=== PATIENT | female | born 1945 | race Caucasian/White ===

== ENCOUNTER 2018-07-27 17:54 | Observation (INO) | payer OTHER ==
[2018-07-27] MEDS ORDERED: ALBUTEROL 2.5 MG/3 ML NEB SOL ONE ×2 (19:11→20:39)
[2018-07-27] MEDS ORDERED: IPRATROPIUM BROM 0.5MG/2.5ML ONE ×2 (19:11→20:39)
[2018-07-27 19:18] LABS: Absolute Lymphocytes (CBC) 0.9 K/uL (0.7-4.9); Absolute Monocytes 0.7 K/uL (0.1-1.3); Absolute Neutrophil 5.1 K/uL (1.8-8.0); Basophils % 0.4 % (0-1.3); Eosinophils % 4.7 % (0-4.4); Hematocrit 41.3 % (36.0-45.0); Lymphocytes % 13.2 % (15.3-44.8); MPV 8.8 fL (7.6-11.3); Monocytes % 9.7 % (3.3-12.3); RBC Red Blood Cell Count 4.61 M/uL (3.86-4.86)
[2018-07-27 19:22] LABS: Protime INR 0.96
[2018-07-27 19:38] LABS: ALT/SGPT 44 U/L (12-78); AST/SGOT 47 U/L (15-37); Albumin 3.5 g/dL (3.4-5.0); Alkaline Phosphatase 122 U/L (45-117); BUN Blood Urea Nitrogen 7 mg/dL (7-18); Bicarbonate 28 mmol/L (21-32); Bilirubin Direct < 0.1 mg/dL (0-0.2); Bilirubin Total 0.3 mg/dL (0.2-1.0); Glucose Level 114 mg/dL (74-106); Magnesium 2.1 mg/dL (1.8-2.4); NT PRO-BNP 151 pg/mL (<125); Potassium 3.5 mmol/L (3.5-5.1); Protein, Total 7.4 g/dL (6.4-8.2); Sodium Level 139 mmol/L (136-145); Troponin (Emerg Dept Use Only) < 0.02 ng/mL (0.0-0.045)
--- NOTE | 2018-07-27 20:26 | RAD REPORT ---
EXAM DESCRIPTION: Denise Pa And Lat (2 Views)07/27/2018 7:44 pm CLINICAL HISTORY: Cough COMPARISON: None FINDINGS: Mild interstitial lung opacities probably are chronic. The Lungs appear clear of acute infiltrate. The heart is probably mildly enlarged. Left hemidiaphragm is elevated
[2018-07-27] MEDS ORDERED: METHYLPREDNISOLONE 40 MG INJ ONE ×2 (20:39→20:43)
[2018-07-27] MEDS ORDERED: ACETAMINOPHEN 500 MG TAB ONE ×2 (20:39→20:43)
[2018-07-27] MEDS ORDERED: ONDANSETRON 4 MG/2 ML VIAL ONE ×2 (20:39→20:43)
[2018-07-27] MEDS ORDERED: NA CHLORIDE 0.9% 250 ML ONE ×2 (20:39→20:43)
[2018-07-27] MEDS ORDERED: BENZONATATE 100 MG CAP PO ONE (21:05)
--- NOTE | 2018-07-27 22:46 | ER ---
Nurse's Notes [facility] Name: Emma Cordova Age: 73 yrs Sex: Female : 1945 Arrival Date: 07/27/2018 Time: 17:55 Bed 5 Private MD: Diagnosis: Pneumonia due to other specified bacteria Presentation: 07/27 17:55 Presenting complaint: Patient states: productive cough, fever, chest congestion, and aa5 nasal congestion since Wednesday. Pt reports she is currently taking Azithromycin. Transition of care: patient was not received from another setting of care. Care prior to arrival: None. 17:55 Method Of Arrival: Wheelchair aa5 17:55 Acuity: HERNÁN 3 aa5 17:55 Onset of symptoms was June 2018. Risk Assessment: Do you want to hurt yourself or aa5 someone else? Patient reports no desire to harm self or others. 20:08 Initial Sepsis Screen: Does the patient meet any 2 criteria? HR > 90 bpm. Does the lp1 patient have a suspected source of infection? No. Patient's initial sepsis screen is negative. Historical: - Allergies: 17:58 Benadryl; aa5 17:58 Atarax; aa5 - PMHx: 17:58 Anxiety; Depression; aa5 - PSHx: 17:58 Diaphragm repair sx; aa5 - Immunization history:: Adult Immunizations up to date. - Social history:: Smoking status: Patient/guardian denies using tobacco. - Ebola Screening: : No symptoms or risks identified at this time. Screenin:41 Abuse screen: Denies threats or abuse. Denies injuries from another. Nutritional lp1 screening: No deficits noted. Tuberculosis screening: No symptoms or risk factors identified. Fall Risk None identified. Assessment: 19:15 General: Appears uncomfortable, Behavior is appropriate for age. Pain: Denies pain. lp1 Neuro: Level of Consciousness is awake, alert, obeys commands, Oriented to person, place, time, situation. Cardiovascular: Patient's skin is warm and dry. Respiratory: Reports cough that is labored breathing pain with cough Airway is patent Respiratory effort is even, labored, Respiratory pattern is regular, Breath sounds with wheezes bilaterally. Onset: The symptoms/episode began/occurred gradually, the patient has moderate shortness of breath. GI: Abdomen is non-distended. : No signs and/or symptoms were reported regarding the genitourinary system. EENT: No signs and/or symptoms were reported regarding the EENT system. Derm: Skin is intact, is thin, Skin is dry, Skin is flushed. Musculoskeletal: Circulation, motion, and sensation intact. 19:41 Reassessment: Patient returned from radiology at this time. lp1 20:30 Neuro: Level of Consciousness is awake, alert, obeys commands, Oriented to person, lp1 place, time, situation. Respiratory: Respiratory effort is even. Derm: Skin is intact, Skin is dry, Skin is normal. 21:00 Reassessment: Patient appears in no apparent distress at this time. Complaint of lp1 feeling "shaky" after nebulizer treatment Patient states feeling better. 22:00 Reassessment: Patient appears in no apparent distress at this time. Patient states lp1 feeling better. Neuro: Level of Consciousness is awake, alert, obeys commands, Oriented to person, place, time, situation. Respiratory: Respiratory effort is even, Respiratory pattern is regular, symmetrical, Breath sounds are clear bilaterally. wheezing diminished. 22:30 Reassessment: Provider at bedside to discuss results with patient; Patient aware of lp1 pending admission. 23:30 Reassessment: Patient appears in no apparent distress at this time. No changes from lp1 previously documented assessment. Patient and/or family updated on plan of care and expected duration. Pain level reassessed. Vital Signs: 18:00 BP 150 / 80; Pulse 100; Resp 20 S; Temp 99.9(O); Pulse Ox 94% on R/A; Weight 72.57 kg aa5 (R); 19:00 BP 133 / 64; Pulse 96; Resp 18; Pulse Ox 98% on Nebulizer Mask; lp1 19:45 BP 140 / 74; Pulse 116; Resp 19; Temp 100.3(O); Pulse Ox 96% on R/A; lp1 20:30 BP 136 / 67; Pulse 116; Resp 17; Pulse Ox 93% on R/A; lp1 21:15 BP 141 / 63; Pulse 122; Resp 18; Pulse Ox 95% on R/A; Pain 0/10; lp1 22:30 BP 114 / 66; Pulse 106; Resp 19; Temp 99.7(O); Pulse Ox 95% on R/A; Pain 0/10; lp1 23:30 BP 118 / 65; Pulse 97; Resp 18; Pulse Ox 95% on R/A; Pain 0/10; lp1 ED Course: 17:55 Patient arrived in ED. aa5 17:55 Arm band placed on. aa5 17:58 Patient placed in an exam room, on a stretcher. aa5 18:10 Triage completed. aa5 18:32 Matheus Barfield PA is PHCP. cp 18:32 Mandi Lucia MD is Attending Physician. cp 18:47 Slava Oliveira RN is Primary Nurse. hj 19:10 Initial lab(s) drawn, by me, sent to lab. Flu and/or RSV swab sent to lab. Inserted lt1 saline lock: 22 gauge in right antecubital area, using aseptic technique. 19:15 Patient has correct armband on for positive identification. hall monitor on. Pulse lp1 ox on. NIBP on. 19:18 Matheus Powers MD is Attending Physician. cp 19:18 EKG done, by ED staff, reviewed by Matheus KENDALL. ag4 19:44 XRAY Chest Pa And Lat (2 Views) In Process Unspecified. EDMS 21:[address] via wheelchair. vm2 21:51 CT Chest Wo Con In Process Unspecified. EDMS 22:43 Sina Bertrand MD is Hospitalizing Provider. cp 05/ 00:00 No provider procedures requiring assistance completed. Patient admitted, IV remains in lp1 place. 00:20 Inserted saline lock: 22 gauge in left forearm, using aseptic technique. Inserted per lp1 patient request. Administered Medications: 05 18:50 Drug: Albuterol - atroVENT (3:1) (2.5 mg - 0.5 mg) 3 ml Route: Nebulizer; hj 19:50 Follow up: Response: Marked relief of symptoms lp1 20:30 Drug: Zofran 4 mg Route: IVP; Site: right antecubital; bb 21:30 Follow up: Response: Nausea is decreased lp1 20:41 Drug: Tylenol 1000 mg Route: PO; bb 22:30 Follow up: Response: Temperature is decreased lp1 20:41 Drug: NS 0.9% 250 ml Route: IV; Rate: bolus; Site: right antecubital; bb 20:58 Follow up: IV Status: Completed infusion; IV Intake: 250ml lp1 20:42 Drug: SOLU-Medrol 80 mg Route: IVP; Site: right antecubital; bb 21:45 Follow up: Response: No adverse reaction lp1 20:57 Drug: Tessalon Perle 200 mg Route: PO; lp1 22:00 Follow up: Response: Marked relief of symptoms lp1 20:59 Drug: NS 0.9% 250 ml Route: IV; Rate: bolus; Site: right antecubital; lp1 21:20 Follow up: IV Status: Completed infusion; IV Intake: 250ml lp1 23:47 Drug: LevaQUIN 750 mg Volume: 150 ml; Route: IVPB; Infused Over: 90 mins; Site: right lp1 antecubital; 23:48 Follow up: IV Status: Infusion continued upon admission lp1 23:48 Drug: NS 0.9% 1000 ml Route: IV; Rate: 100 ml/hr; Site: right antecubital; lp1 23:48 Follow up: IV Status: Infusion continued upon admission lp1 Intake: 20:58 IV: 250ml; Total: 250ml. lp1 21:20 IV: 250ml; Total: 500ml. lp1 Outcome: 22:45 Decision to Hospitalize by Provider. orin 07/28 00:04 Admitted to Med/surg accompanied by tech, via wheelchair, room 205, with chart, Report lp1 called to Brett Vee RN Condition: stable Instructed on the need for admit. 00:20 Patient left the ED. lp1 Signatures: Dispatcher [employer] EDMS Aurora Washington RN RN bb Tammie Perla RN RN Marce Correa RN RN lp1 Slava Oliveira RN RN hj Page, Corey, PA PA cp McGuire, [facility] Brian Modi Jane Leo 1 Corrections: (The following items were deleted from the chart) 07/27 18:10 17:55 Presenting complaint: Patient states: productive cough, fever, chest congestion, aa5 and nasal congestion. aa5 18:53 08:50 Albuterol - atroVENT (3:1) (2.5 mg - 0.5 mg) 3 ml Nebulizer hj hj 21:19 21:15 BP 141 / 63; Pulse 122bpm; Resp 18bpm; Pulse Ox 95% RA; lp1 lp1
--- NOTE | 2018-07-27 22:46 | EDPHYS ---
Physician Documentation [facility] Name: Emma Cordova Age: 73 yrs Sex: Female : 1945 Arrival Date: 07/27/2018 Time: 17:55 Bed 5 Private MD: ED Physician Matheus Powers HPI: 07/27 19:00 This 73 yrs old Female presents to ER via Wheelchair with complaints of Cough.cp Historical: - Allergies: 17:58 Benadryl; aa5 17:58 Atarax; aa5 - PMHx: 17:58 Anxiety; Depression; aa5 - PSHx: 17:58 Diaphragm repair sx; aa5 - Immunization history:: Adult Immunizations up to date. - Social history:: Smoking status: Patient/guardian denies using tobacco. - Ebola Screening: : No symptoms or risks identified at this time. ROS: 19:05 Constitutional: Negative for body aches, chills, fever, poor PO intake. cp 19:05 Eyes: Negative for injury, pain, redness, and discharge. cp 19:05 ENT: Positive for sore throat, Negative for drainage from ear(s), ear pain, difficulty swallowing, difficulty handling secretions. 19:05 Cardiovascular: Negative for chest pain, edema, palpitations. 19:05 Respiratory: Positive for cough, "sounds productive", shortness of breath. 19:05 Abdomen/GI: Negative for abdominal pain, vomiting, diarrhea, constipation, anorexia, black/tarry stool, rectal bleeding. 19:05 Back: Negative for pain at rest, pain with movement. 19:05 Skin: Negative for cellulitis, rash. 19:05 Neuro: Negative for altered mental status, headache, syncope, weakness. 19:05 All other systems are negative. Exam: 19:15 Head/Face: Normocephalic, atraumatic. cp 19:15 Constitutional: The patient appears in no acute distress, alert, awake, non-diaphoretic, non-toxic, well developed, well nourished, appears ill 19:15 Eyes: Periorbital structures: appear normal, Conjunctiva: normal, no exudate, no cp injection, Sclera: no appreciated abnormality, Lids and lashes: appear normal, bilaterally. 19:15 ENT: External ear(s): are unremarkable, Ear canal(s): are normal, clear, TM's: bulging, is not appreciated, bilaterally, dullness, bilaterally, erythema, is not appreciated, bilaterally, Nose: is normal, Mouth: Lips: moist, Oral mucosa: moist, Posterior pharynx: Airway: no evidence of obstruction, patent, Tonsils: no enlargement, no exudate, swelling, is not appreciated, erythema, that is mild, exudate, is not appreciated, Voice: is normal. 19:15 Neck: ROM/movement: is normal, is supple, without pain, no range of motions limitations, no meningismus, no nuchal rigidity, Lymph nodes: no appreciated lymphadenopathy. 19:15 Chest/axilla: Inspection: normal, Palpation: is normal, no crepitus, no tenderness. 19:15 Cardiovascular: Rate: normal, Rhythm: regular, Edema: is not appreciated, JVD: is not appreciated. 19:15 Respiratory: the patient does not display signs of respiratory distress, Respirations: labored breathing, that is mild, intercostal retractions, are absent, tachypnea, is not appreciated, Breath sounds: bronchial sounds, that are moderate, are heard diffusely, stridor, is not appreciated, + upper airway congestion. 19:15 Abdomen/GI: Inspection: abdomen appears normal, Palpation: abdomen is soft and non-tender, in all quadrants. 19:15 Back: pain, is absent, ROM is normal. 19:15 Skin: no rash present. 19:15 Neuro: Orientation: to person, place \\T\\ time. Mentation: is normal, Cerebellar function: is grossly normal, Motor: moves all fours, strength is normal, Sensation: is normal. 19:25 ECG was reviewed by the Attending Physician. cp Vital Signs: 18:00 BP 150 / 80; Pulse 100; Resp 20 S; Temp 99.9(O); Pulse Ox 94% on R/A; Weight 72.57 kg aa5 (R); 19:00 BP 133 / 64; Pulse 96; Resp 18; Pulse Ox 98% on Nebulizer Mask; lp1 19:45 BP 140 / 74; Pulse 116; Resp 19; Temp 100.3(O); Pulse Ox 96% on R/A; lp1 20:30 BP 136 / 67; Pulse 116; Resp 17; Pulse Ox 93% on R/A; lp1 21:15 BP 141 / 63; Pulse 122; Resp 18; Pulse Ox 95% on R/A; Pain 0/10; lp1 22:30 BP 114 / 66; Pulse 106; Resp 19; Temp 99.7(O); Pulse Ox 95% on R/A; Pain 0/10; lp1 23:30 BP 118 / 65; Pulse 97; Resp 18; Pulse Ox 95% on R/A; Pain 0/10; lp1 MDM: 18:32 Patient medically screened. cp 19:00 Differential Diagnosis: Bronchitis Influenza Viral Syndrome Pneumonia Other sepsis. cp 22:50 Data reviewed: vital signs, nurses notes, lab test result(s), EKG, radiologic studies, cp CT scan, plain films. 22:50 Test interpretation: by ED physician or midlevel provider: ECG. Counseling: I had a cp detailed discussion with the patient and/or guardian regarding: the historical points, exam findings, and any diagnostic results supporting the discharge/admit diagnosis, lab results, radiology results, the need for further work-up and treatment in the hospital. Response to treatment: the patient's symptoms have mildly improved after treatment. 07/27 18:50 Order name: Basic Metabolic Panel; Complete Time: 19:51 cp 07/27 19:51 Interpretation: Normal except: GLUC 114; GFR 61. cp 07/27 18:50 Order name: CBC with Diff; Complete Time: 19:51 cp 07/27 19:52 Interpretation: Normal except: LYM% 13.2; EOSINOPHIL % 4.7. cp / 18:50 Order name: LFT's; Complete Time: 19:51 cp / 20:24 Interpretation: Normal except: AST 47; ALK 122; GLOB 3.9; A/G 0.9. cp / 18:50 Order name: Magnesium; Complete Time: 19:51 cp 07/27 18:50 Order name: NT PRO-BNP; Complete Time: 19:51 cp / 20:31 Interpretation: Abnormal: NT PRO-BNP 151. cp / 18:50 Order name: XRAY Chest Pa And Lat (2 Views); Complete Time: 20:30 cp / 18:50 Order name: PT-INR; Complete Time: 19:51 cp 07/27 18:50 Order name: Troponin (emerg Dept Use Only); Complete Time: 19:51 cp 07/27 18:50 Order name: Lactate; Complete Time: 19:51 cp 07/27 18:51 Order name: Influenza Screen (A ; Complete Time: 19:51 EDMS 07/27 21:19 Order name: CT Chest Wo Con cp 07/27 22:57 Order name: Blood Culture Adult (2) lp1 07/27 18:50 Order name: EKG; Complete Time: 18:51 cp 07/27 18:50 Order name: Cardiac monitoring; Complete Time: 18:53 cp 07/27 18:50 Order name: EKG - Nurse/Tech; Complete Time: 19:20 cp 07/27 18:50 Order name: IV Saline Lock; Complete Time: 19:11 cp 07/27 18:50 Order name: Labs collected and sent; Complete Time: 19:11 cp 07/27 18:50 Order name: O2 Per Protocol; Complete Time: 18:52 cp 07/27 18:50 Order name: O2 Sat Monitoring; Complete Time: 18:52 cp EC:25 Rate is 101 beats/min. Rhythm is regular. ND interval is normal. QRS interval is cp normal. QT interval is normal. Interpreted by me. Reviewed by me. Administered Medications: 18:50 Drug: Albuterol - atroVENT (3:1) (2.5 mg - 0.5 mg) 3 ml Route: Nebulizer; hj 19:50 Follow up: Response: Marked relief of symptoms lp1 20:30 Drug: Zofran 4 mg Route: IVP; Site: right antecubital; bb 21:30 Follow up: Response: Nausea is decreased lp1 20:41 Drug: Tylenol 1000 mg Route: PO; bb 22:30 Follow up: Response: Temperature is decreased lp1 20:41 Drug: NS 0.9% 250 ml Route: IV; Rate: bolus; Site: right antecubital; bb 20:58 Follow up: IV Status: Completed infusion; IV Intake: 250ml lp1 20:42 Drug: SOLU-Medrol 80 mg Route: IVP; Site: right antecubital; bb 21:45 Follow up: Response: No adverse reaction lp1 20:57 Drug: Tessalon Perle 200 mg Route: PO; lp1 22:00 Follow up: Response: Marked relief of symptoms lp1 20:59 Drug: NS 0.9% 250 ml Route: IV; Rate: bolus; Site: right antecubital; lp1 21:20 Follow up: IV Status: Completed infusion; IV Intake: 250ml lp1 23:47 Drug: LevaQUIN 750 mg Volume: 150 ml; Route: IVPB; Infused Over: 90 mins; Site: right lp1 antecubital; 23:48 Follow up: IV Status: Infusion continued upon admission lp1 23:48 Drug: NS 0.9% 1000 ml Route: IV; Rate: 100 ml/hr; Site: right antecubital; lp1 23:48 Follow up: IV Status: Infusion continued upon admission lp1 Disposition: 07/28 07:51 Co-signature as Attending Physician, Matheus Powers MD I agree with the assessment and umm plan of care. Disposition: 07/27/18 22:45 Hospitalization ordered by Sina Bertrand for Inpatient Admission. Preliminary diagnosis is Pneumonia due to other specified bacteria. - Bed requested for Telemetry/MedSurg (Inpatient). - Status is Inpatient Admission. lp1 - Condition is Stable. - Problem is new. - Symptoms have improved. UTI on Admission? No Signatures: Dispatcher [employer] [facility] Matheus Powers MD MD cha Ballard, Brenda, RN RN bb Tammie Perla, RN RN aa5 Marce Bergman RN RN 1 Slava Oliveira, RN RN hj Matheus Barfield PA PA cp Garcia, Cindy, JOSHUA RN cg Corrections: (The following items were deleted from the chart) 07/27 18:54 18:51 Influenza Screen (A \\T\\ B)+[id number].LAB.BRZ ordered. [facility] EDUT 23:41 22:45 Hospitalization Ordered by Sina Bertrand MD for Inpatient Admission. Preliminary cg diagnosis is Pneumonia due to other specified bacteria. Bed requested for Telemetry/MedSurg (Inpatient). Status is Inpatient Admission. Condition is Stable. Problem is new. Symptoms have improved. UTI on Admission? No. cp 07/28 00:20 07/27 23:41 07/27/2018 22:45 Hospitalization Ordered by Sina Bertrand MD for Inpatient lp1 Admission. Preliminary diagnosis is Pneumonia due to other specified bacteria. Bed requested for Telemetry/MedSurg (Inpatient). Status is Inpatient Admission. Condition is Stable. Problem is new. Symptoms have improved. UTI on Admission? No. cg
[2018-07-27] MEDS ORDERED: NA CHLORIDE 0.9% 1,000 ML ONE (23:03)
[2018-07-27] MEDS ORDERED: Levofloxacin 750mg IV 750 MG/150 ML BAG IV ONE (23:04)
[2018-07-28] MEDS ORDERED: Levofloxacin 750mg IV 750 MG/150 ML BAG IV SCH (00:22)
[2018-07-28] MEDS ORDERED: ACETAMINOPHEN 500 MG TAB PO PRN (00:22)
[2018-07-28] MEDS ORDERED: ALBUTEROL 2.5 MG/3 ML NEB SOL NEB PRN (00:22)
[2018-07-28] MEDS ORDERED: ONDANSETRON 4 MG/2 ML VIAL IV PRN (00:22)
[2018-07-28] MEDS ORDERED: IPRATROPIUM BROM 0.5MG/2.5ML NEB PRN (00:22)
[2018-07-28] MEDS: NA CHLORIDE 0.9% 1,000 ML IV SCH ×2 (00:54→09:34)
[2018-07-28 01:39] VITALS: BMI 29.5
[2018-07-28] MEDS ORDERED: PHENOL 1.4% ORAL SPRAY 180ML MM PRN (04:34)
[2018-07-28 05:27] LABS: Absolute Lymphocytes (CBC) 0.4 K/uL (0.7-4.9); Absolute Monocytes 0.1 K/uL (0.1-1.3); Absolute Neutrophil 5.4 K/uL (1.8-8.0); Basophils % 0.1 % (0-1.3); Eosinophils % 0.1 % (0-4.4); Lymphocytes % 7.4 % (15.3-44.8); MPV 8.6 fL (7.6-11.3); Monocytes % 1.3 % (3.3-12.3); RBC Red Blood Cell Count 4.22 M/uL (3.86-4.86)
--- NOTE | 2018-07-28 05:33 | P.HP ---
Certification for Inpatient Patient admitted to: Inpatient With expected LOS: >2 Midnights Practitioner: I am a practitioner with admitting privileges, knowledge of patient current condition, hospital course, and medical plan of care. Services: Services provided to patient in accordance with Admission requirements found in Title 42 Section 412.3 of the Code of Federal Regulations Patient History Date of Service: 07/27/18 Reason for admission: pneumonia History of Present Illness: Ms Cordova is a 73 years old woman with history of depression/anxiety, left diaphragm surgery repair, recurrent bronchitis episodes, who start about 5 days go with productive cough, associated with SOB. She has had fever at home. The patient went to see her PCP, and was prescribed Z-pack. Despite to start antibiotics, her symptoms got worse. In ED she was febrile, 100.3F, O2 sat 94% on RA. CT chest shows right middle lobe ground glass opacification consistent with acute pneumonitis. Lab work shows normal WBC count, lactate normal. At my encounter the patient was in non-distress. Allergies diphenhydramine [From Benadryl] Allergy (Intermediate, Verified 07/28/18 02:13) Hives hydroxyzine [From Atarax] Allergy (Intermediate, Verified 07/28/18 02:13) Hives Home Medications: Atorvastatin Calcium 10 mg PO DAILY 07/28/18 Cetirizine HCl [Zyrtec] 10 mg PO DAILY 07/28/18 Codeine/APAP [Tylenol W/Codeine #3 tab] 1 tab PO Q6HP PRN 07/28/18 Fluoxetine HCl [Prozac] 10 mg PO DAILY 07/28/18 - Past Medical/Surgical History Has patient received pneumonia vaccine in the past: Yes Diabetic: No -: Shingles x2 -: Depression -: Anxiety -: Diaphragm sx - 2018 -: x2 - Family History Family History: Reviewed- Non-Contributory - Social History Smoking Status: Former smoker Alcohol use: No CD- Drugs: No Caffeine use: Yes Place of Residence: Home Review of Systems 10-point ROS is otherwise unremarkable Physical Examination - Vital Signs Temperature: 97.0 F Blood Pressure: 132/60 Pulse: 91 Respirations: 18 Pulse Ox (%): 93 - Physical Exam General: Alert, In no apparent distress HEENT: Atraumatic, PERRLA, Mucous membr. moist/pink, EOMI, Sclerae nonicteric Neck: Supple, 2+ carotid pulse no bruit, No LAD, Without JVD or thyroid abnormality Respiratory: Diminished, Crackles/rales (right middle field) Cardiovascular: Regular rate/rhythm, Normal S1 S2 Gastrointestinal: Normal bowel sounds, No tenderness Musculoskeletal: No tenderness Integumentary: No rashes Neurological: Normal gait, Normal speech, Normal strength at 5/5 x4 extr, Normal tone, Normal affect Lymphatics: No axilla or inguinal lymphadenopathy - Studies Laboratory Data (last 24 hrs) 07/27/18 19:06: PT 11.3, INR 0.96 07/27/18 19:06: WBC 7.0, Hgb 13.7, Hct 41.3, Plt Count 180 07/27/18 19:06: Sodium 139, Potassium 3.5, BUN 7, Creatinine 0.91, Glucose 114 H , Magnesium 2.1, Total Bilirubin 0.3, AST 47 H, ALT 44, Alkaline Phosphatase 122 H Microbiology Data (last 24 hrs): 07/27/18 19:06 Nasopharnyx Influenza Type A Antigen Screen - Final 07/27/18 19:06 Nasopharnyx Influenza Type B Antigen Screen - Final Assessment and Plan - Problems (Diagnosis) (1) Pneumonitis Current Visit: Yes Status: Acute (2) HTN (hypertension) Current Visit: Yes Status: Acute Qualifiers: Hypertension type: essential hypertension Qualified Code(s): I10 - Essential (primary) hypertension - Plan Will admit the patient for acute pneumonitis, who failed outpatient therapy, start IV Levaquin, IV steroids and breathing treatments. Consult detention sergeant. - Advance Directives Does patient have a Living Will: No Does patient have a Durable POA for Healthcare: No - Code Status/Comfort Care Code Status Assessed: Yes Code Status: Full Code
[2018-07-28 05:44] LABS: Potassium 3.6 mmol/L (3.5-5.1)
[2018-07-28 06:45] LABS: Blood Morphology Comment NOT SEEN (NOT SEEN); Platelet Estimate ADEQ; Urine White Blood Cell Casts OK
[2018-07-28] MEDS ORDERED: CODEINE 30MG/APAP 300MG TAB PO PRN (06:45)
[2018-07-28] MEDS ORDERED: ARFORMOTEROL TARTRATE 15 MCG/2 ML VIAL.NEB NEB SCH (08:00)
[2018-07-28] MEDS ORDERED: ATORVASTATIN 10 MG TAB PO SCH (09:00)
[2018-07-28] MEDS ORDERED: FLUOXETINE 10 MG CAP PO SCH (09:00)
[2018-07-28] MEDS ORDERED: POTASSIUM 25 MEQ EFFERV TAB PO ONE (09:00)
[2018-07-28] MEDS ORDERED: CETIRIZINE HCL 5 MG TABLET PO SCH (09:00)
[2018-07-28] MEDS ORDERED: ENOXAPARIN 40 MG/0.4 ML SQ SCH (09:00)
[2018-07-28] MEDS ORDERED: METHYLPREDNISOLONE 40 MG INJ IV SCH (09:00)
[2018-07-28] MEDS ORDERED: ALPRAZOLAM 0.25 MG TABLET PO PRN (09:22)
[2018-07-28 09:24] VITALS: O2SAT 93
--- NOTE | 2018-07-28 10:01 | RAD REPORT ---
EXAM DESCRIPTION: CT Chest Without Intravenous Contrast CLINICAL HISTORY: 73 years old and is Female; cough, fever TECHNIQUE: Axial computed tomography images of the chest without intravenous contrast. Sagittal an d coronal reformatted images were created and reviewed. This CT exam was performed using one or mor e of the following dose reduction techniques: automated exposure control, adjustment of the mA and/ or kV according to patient size, and/or use of iterative reconstruction technique. COMPARISON: No relevant prior studies available. FINDINGS: Limitations: None. Lungs: Subpleural interstitial opacity identified in the right middle lobe and small foci of reji undglass opacity noted in the right upper lobe. There is linear scarring or atelectasis in the lower lobes. Pleural space: Unremarkable. No pneumothorax. No significant effusion. Heart: Unremarkable. No cardiomegaly. No significant pericardial effusion. Bones/joints: There is kyphosis. Degenerative changes present in the spine which is osteopenic. No acute fracture. No dislocation. Soft tissues: Unremarkable. Vasculature: Unremarkable. No thoracic aortic aneurysm. Lymph nodes: There is a borderline enlarged precarinal lymph node measuring 1 cm diameter. Liver: Fatty liver. Kidneys and ureters: Fluid density structure medial to the left kidney may be an unusual exophyt ic cyst or extrarenal pelvis. Upper abdomen: There is elevation of the left diaphragm. There are multiple calcifications along the undersurface of the left diaphragm. IMPRESSION: 1. There is mild nonspecific groundglass opacity within the right middle and upper lob es possibly representing pneumonitis. 2. Elevated left hemidiaphragm. Electronically signed by: Tomasa Valentine MD 07/27/2018 10:06 PM CDT Due to temporary technical issues with the PACS/Fluency reporting system, reports are being signed by the in house radiologist as a courtesy to ensure prompt reporting. The interpreting radiologist is f ully responsible for the content of the report.
[2018-07-28 12:21] VITALS: TEMP 97.3
--- NOTE | 2018-07-28 12:47 | P.CNS ---
Date of Consult: 07/28/18 Reason for Consult: Shortness of breath Chief Complaint: Shortness of breath History of Present Illness: Patient is 73 years of age admitted with acute onset of shortness of breath apparently she had diaphragmatic plication surgery on the left-sided 5 months ago patient had a slight fever complaining of chest congestion diagnosed with bronchitis was treated with some antibiotics coughing up some sputum doing better no prior history of obstructive airways disease Allergies diphenhydramine [From Benadryl] Allergy (Intermediate, Verified 07/28/18 02:13) Hives hydroxyzine [From Atarax] Allergy (Intermediate, Verified 07/28/18 02:13) Hives Home Medications: Atorvastatin Calcium 10 mg PO DAILY 07/28/18 Cetirizine HCl [Zyrtec] 10 mg PO DAILY 07/28/18 Codeine/APAP [Tylenol W/Codeine #3 tab] 1 tab PO Q6HP PRN 07/28/18 Fluoxetine HCl [Prozac] 10 mg PO DAILY 07/28/18 - Past Medical/Surgical History Diabetic: No -: Shingles x2 -: Depression -: Anxiety -: Diaphragm sx - 2018 -: x2 - Social History Alcohol use: No CD- Drugs: No Caffeine use: Yes Place of Residence: Home Review of Systems General: Weakness Respiratory: Cough, Shortness of Breath Physical Examination Temp Pulse Resp BP Pulse Ox 97.3 F 82 16 133/69 96 07/28/18 12:00 07/28/18 12:00 07/28/18 12:00 07/28/18 12:00 07/28/18 12:00 General: Alert, Oriented x3 HEENT: Atraumatic Neck: Supple Respiratory: Expiratory wheezes Cardiovascular: No edema, Regular rate/rhythm Gastrointestinal: Normal bowel sounds, Soft and benign Laboratory Data (last 24 hrs) 07/27/18 19:06: PT 11.3, INR 0.96 07/27/18 19:06: WBC 7.0, Hgb 13.7, Hct 41.3, Plt Count 180 07/27/18 19:06: Sodium 139, Potassium 3.5, BUN 7, Creatinine 0.91, Glucose 114 H , Magnesium 2.1, Total Bilirubin 0.3, AST 47 H, ALT 44, Alkaline Phosphatase 122 H - Problems (1) Shortness of breath Current Visit: Yes Status: Acute Plan: Patient is 73 years of age admitted with shortness of breath and cough chest x- ray CT scan both negative she has elevated left hemidiaphragm recently had after medic surgery performed at [facility] 5 months ago no evidence of sepsis patient is wheezing I recommend discharge on prednisone 10 mg twice a day for 10 days bronchodilator either Advair or Symbicort to follow up with me in a couple of weeks patient does not qualify for home O2 or antibiotic room- air saturation is satisfactory vital signs stable
--- NOTE | 2018-07-28 13:03 | P.DS ---
Admission Date: 07/27/18 Discharge Date: 07/28/18 Primary Care Provider: Dr. Godfrey(PCP/Endocrinology) Disposition: ROUTINE DISCHARGE Discharge Condition: GOOD Reason for Admission: Shortness of breath Consultations: Pulmonary-Dr. Alvarenga Procedures: CT scan: IMPRESSION: 1. There is mild nonspecific groundglass opacity within the right middle and upper lobes possibly representing pneumonitis. 2. Elevated left hemidiaphragm. Medical Problem list: Shortness of breast secondary to COPD exacerbation with pneumonitis with noted elevated left hemidiaphragm with prior surgery Hyperlipidemia Chronic allergic rhinitis Depression with anxiety Brief History of Present Illness: 73-year-old female presented to emergency room with shortness of breath. Patient was recently treated with antibiotic therapy. No improvement noted. She came to the ER for further evaluation. At with prior history of left elevated hemidiaphragm with prior surgery. Patient found to have pneumonitis. Patient was admitted for treatment. Hospital Course: Patient presented with shortness of breath secondary to COPD exacerbation with pneumonitis. Patient with noted elevated left hemidiaphragm with prior surgery. Patient had been treated with antibiotic therapy as an outpatient. Patient seen and evaluated by pulmonology. Pulmonology suspects COPD related. CT scan showed pneumonitis with left elevated hemidiaphragm. Patient has responded well to medication. Pro calcitonin negative. White count within normal range. No evidence of bacterial infection. Patient uses oxygen at home. Patient without any significant shortness of breath at this time. At discharge patient will continue with prednisone 20 mg 1 pill twice daily for 5 days then 1 pill once daily for 5 days. Patient will be started on Symbicort 2 puffs twice daily and Pro air 2 puffs 3 times a day as needed for shortness of breath. Patient may continue with home oxygen to maintain sats above 90%. Recommendation is for the patient to follow up with pulmonology in 1 week to follow up this hospitalization and continue her care. Patient with hyperlipidemia. Patient will continue with her medication-Lipitor 10 mg daily. Patient with depression with anxiety. Patient continue with Prozac daily. Patient with chronic allergic rhinitis. Patient may continue with Zyrtec 10 mg daily. Vital Signs/Physical Exam: Temp Pulse Resp BP Pulse Ox 97.3 F 82 16 133/69 96 07/28/18 12:00 07/28/18 12:00 07/28/18 12:00 07/28/18 12:00 07/28/18 12:00 General: Alert, In no apparent distress, Oriented x3, Cooperative HEENT: Atraumatic Neck: Supple Respiratory: Clear to auscultation bilaterally, Normal air movement Cardiovascular: Normal pulses, Regular rate/rhythm Gastrointestinal: Normal bowel sounds, Soft and benign, Non-distended, No tenderness, No masses, No rebound, No guarding Musculoskeletal: No erythema, No tenderness, No warmth Integumentary: No tenderness/swelling, No erythema, No warmth, No cyanosis Neurological: Normal speech, Normal strength at 5/5 x4 extr, Normal tone, Normal affect Laboratory Data at Discharge: WBC 6.0 K/uL (4.3-10.9) D 07/28/18 05:05 Hgb 12.5 g/dL (12.0-15.0) 07/28/18 05:05 Hct 38.0 % (36.0-45.0) 07/28/18 05:05 Plt Count 178 K/uL (152-406) 07/28/18 05:05 PT 11.3 SECONDS (9.5-12.5) 07/27/18 19:06 INR 0.96 07/27/18 19:06 Sodium 139 mmol/L (136-145) 07/28/18 05:05 Potassium 3.6 mmol/L (3.5-5.1) 07/28/18 05:05 BUN 6 mg/dL (7-18) L 07/28/18 05:05 Creatinine 1.05 mg/dL (0.55-1.3) 07/28/18 05:05 Glucose 197 mg/dL (74-106) H 07/28/18 05:05 Magnesium 2.1 mg/dL (1.8-2.4) 07/27/18 19:06 Total Bilirubin 0.3 mg/dL (0.2-1.0) 07/27/18 19:06 AST 47 U/L (15-37) H 07/27/18 19:06 ALT 44 U/L (12-78) 07/27/18 19:06 Alkaline Phosphatase 122 U/L (45-117) H 07/27/18 19:06 Home Medications: Albuterol Sulfate [Proair Hfa] 2 puff IH TID PRN #1 hfa.[email or web address] 07/28/18 Atorvastatin Calcium 10 mg PO DAILY 07/28/18 Budesonide/Formoterol Fumarate [Symbicort 160-4.5 Mcg Inhaler] 2 puff IH BID #1 hfa.[email or web address] 07/28/18 Cetirizine HCl [Zyrtec] 10 mg PO DAILY 07/28/18 Codeine/APAP [Tylenol #3*] 1 tab PO Q6HP PRN 07/28/18 Fluoxetine HCl [Prozac*] 10 mg PO DAILY 07/28/18 predniSONE [Deltasone] 20 mg PO SEECOM #15 tab 07/28/18 New Medications: Albuterol Sulfate [Proair Hfa] 2 puff IH TID PRN #1 hfa.[email or web address] PRN Reason: Shortness Of Breath Budesonide/Formoterol Fumarate [Symbicort 160-4.5 Mcg Inhaler] 2 puff IH BID #1 hfa.aer.ad predniSONE [Deltasone] 20 mg PO SEECOM #15 tab Patient Discharge Instructions: 1. Patient will follow up with a PCP in 1 week to follow up this hospitalization. 2. Patient presented with shortness of breath secondary to COPD exacerbation with pneumonitis. Patient with noted elevated left hemidiaphragm with prior surgery. Patient had been treated with antibiotic therapy as an outpatient. Patient seen and evaluated by pulmonology. Pulmonology suspects COPD related. CT scan showed pneumonitis with left elevated hemidiaphragm. Patient has responded well to medication. Pro calcitonin negative. White count within normal range. No evidence of bacterial infection. Patient uses oxygen at home. Patient without any significant shortness of breath at this time. At discharge patient will continue with prednisone 20 mg 1 pill twice daily for 5 days then 1 pill once daily for 5 days. Patient will be started on Symbicort 2 puffs twice daily and Pro air 2 puffs 3 times a day as needed for shortness of breath. Patient may continue with home oxygen to maintain sats above 90%. Recommendation is for the patient to follow up with pulmonology in 1 week to follow up this hospitalization and continue her care. 3. Patient with hyperlipidemia. Patient will continue with her medication-Lipitor 10 mg daily. 4. Patient with depression with anxiety. Patient continue with Prozac daily. 5. Patient with chronic allergic rhinitis. Patient may continue with Zyrtec 10 mg daily. Diet: AHA Activity: Ad kristine Time spent managing pt's care (in minutes): 55
[2018-07-28 16:11] VITALS: BP 139/70
--- NOTE | 2018-07-28 17:10 | EKG ---
Test Date: 2018-07-27 Test Time: 19:16:03 [employer]: [employer] MEASUREMENT RESULTS: Intervals: Rate: 101 OH: 150 QRSD: 92 QT: 368 QTc: 477 [place]: P: 43 OH: 150 QRS: 50 T: 64 INTERPRETIVE STATEMENTS: Sinus tachycardia with occasional premature ventricular complexes Otherwise normal ECG No previous ECG available for comparison Electronically Signed On 07-28-18 17:10:12 CDT by Waqas Munoz
[2018-07-28] MEDS ORDERED: predniSONE 20 MG TAB PO SCH (21:00)
[2018-07-30] MEDS ORDERED: Levofloxacin 750mg IV 750 MG/150 ML BAG IV SCH
== END 2018-07-28 17:10 | disposition home or self-care (01) ==
LOC: ER 17:54 → INTOOBSV 23:29 → ERHOLD 23:29 → 2ND 07-28 00:05
PROVIDERS: ADMIT Internal Medicine; ATTEND Internal Medicine
DX: J44.1 Chronic obstructive pulmonary disease with (acute) exacerbation (principal); J18.9 Pneumonia, unspecified organism; E78.5 Hyperlipidemia, unspecified; J30.9 Allergic rhinitis, unspecified; F41.8 Other specified anxiety disorders
CPT/HCPCS: 96365; 93005; 87040 ×2; 85025 ×2; 80048 ×2; 36415; 83735; 85610; 80076; 83605; 84484; 84145; 83880; 87804 ×2; 71250; 71046; 94640 ×2; 94760 ×2; 96375; 99285; J1650; J7605; J7030 ×2; J2405 ×2; J2920 ×3; G0378 ×2

== ENCOUNTER 2018-08-08 09:25 | Emergency (ER) | payer OTHER ==
--- OUTSIDE RECORDS SUMMARY | 2018-08-08 09:39 | XMS REPORT | Clinical Summary ---
:1945 Author Organization [facility] Address [address] [place] [address] Care Team Providers Name Role Phone Lucero Farrar Primary Care Provider Kevin Rascon Unavailable Allergies Active Allergy Reactions Severity Noted Date Comments Hydroxyzine Hcl 08/07/2015 Insomnia Diphenhydramine Other (See Comments) 08/19/2015 insomnia Potato Nausea And Vomiting 11/22/2017 Sweet potatoes only Pseudoephedrine Hcl Other (See Comments) 08/19/2015 Insomnia Medications Medication Sig Dispensed Refills Start Date End Date Status ALPRAZolam (XANAX) Take 0.5 mg 0 Active 0.5 MG tablet by mouth every night as needed for Anxiety. cetirizine (ZYRTEC) Take 10 mg by 0 Active 10 MG tablet mouth 2 (two) times daily . FLUoxetine (PROZAC) Take 40 mg by 0 Active 40 MG capsule mouth daily. atorvastatin Take 20 mg by 0 Active (LIPITOR) 20 MG mouth nightly tablet . cycloSPORINE 1 drop as 0 Active (RESTASIS) 0.05 % needed. ophthalmic emulsion antipyrine-benzocai Place in 0 Active ne 5.5-1.4 % Drop ear(s) as needed. acetaminophen-codei Take 1 tablet 0 Active ne (TYLENOL #3) by mouth 300-30 mg per every 4 tablet (four) hours as needed for Pain. bromfenac 0.07 % Apply to 0 11/22/2017 Discontinued Drop eye(s). difluprednate 0.05 Apply to 0 11/22/2017 Discontinued % Drop eye(s). polymyxin B Place 1 drop 0 11/22/2017 Discontinued sulf-trimethoprim into the left 10,000 unit- 1 eye every 4 mg/mL Drop (four) hours. difluprednate Apply 1 drop 1 Bottle 0 08/08/2015 11/22/2017 Discontinued (DUREZOL) 0.05 % to eye(s) 3 Drop (three) times daily. polymyxin B Place 1 drop 1 Bottle 0 08/08/2015 11/22/2017 Discontinued sulf-trimethoprim into the left 10,000 unit- 1 eye 3 (three) mg/mL Drop times daily. bromfenac Apply 1 drop 5 mL 2 08/08/2015 11/22/2017 Discontinued (PROLENSA) 0.07 % to eye(s) Drop daily. gabapentin Take 1 30 capsule 0 12/31/2017 01/10/2018 (NEURONTIN) 100 MG capsule (100 capsule mg total) by mouth 3 (three) times daily for 10 days. 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 Encounters Date Type Specialty Care Team Description 03/16/2018 Hospital Computed Tomography Josefa Florence Abnormal PFTs; Encounter MD Vito Abnormal screening CT of chest; , [facility] Cough Ct Room 03/14/2018 Outside Orders Central Scheduling Josefa Florence Abnormal PFTs ( Primary Dx); MD Vito Abnormal screening CT of chest; Cough 01/18/2018 Orders Only Lab Manoje, Fely Mehnaz 01/18/2018 Hospital Radiology Manoje, Fely Pleural effusion, Encounter Mehnaz left 01/14/2018 Orders Only Intensive Care Manoje, Fely Pleural effusion, Mehnaz left (Primary Dx) 01/14/2018 Orders Only Intensive Care German Card Pleural effusion, MD Jesus left (Primary Dx) 12/27/2017 Surgery German Card ROBOTIC MD Jesus LAPAROSCOPY,HEMIDI APHRAGM PLICATION 12/27/2017 Anesthesia Event Fidel Tipton MD 12/27/2017 - Hospital Cardiology German Card 12/31/2017 Encounter MD Jesus 12/22/2017 Hospital KyawGerman pa Encounter MD Jesus 12/22/2017 Hospital Pre-Admission Testing German Card MD 12/22/2017 Orders Only General Internal Medicine 12/22/2017 Outside Orders German Card MD 11/23/2017 Anesthesia Event Gastroenterology Musa Haque MD 11/23/2017 Surgery Gastroenterology Josefa Florence BRONCHOSCOPY,[facility] MD Vito HIAL ALVEOLAR LAVAGE 11/23/2017 Hospital Gastroenterology Josefa Florence Encounter MD Vito 11/22/2017 Hospital Pre-Admission Testing Josefa Florence MD Resource, [employer] Preadmit Phone after 08/07/2017 Social History Tobacco Use Types Packs/Day Years Used Date Former Smoker Quit: 03/29/1979 Smokeless Tobacco: Never Used Tobacco Cessation: Counseling Given: No Comments: quit 1979 Alcohol Use Drinks/Week oz/Week Comments No quit 18 yrs ago/hx alcohol abuse Sex Assigned at Date Recorded Not on file Job Start Date Occupation Industry Not on file Not on file Not on file Travel History Travel Start Travel End No recent travel history available. Last Filed Vital Signs Vital Sign Reading Time Taken Blood Pressure 115/58 01/18/2018 12:14 PM CDT Pulse 57 01/18/2018 12:14 PM CDT Temperature 36.8 C (98.2 F) 01/18/2018 11:05 AM CDT Respiratory Rate 17 01/18/2018 12:14 PM CDT Oxygen Saturation 95% 01/18/2018 12:14 PM CDT Inhaled Oxygen Concentration - - Weight 71.7 kg (158 lb) 12/30/2017 7:27 AM CDT Height 160 cm (5' 3") 12/27/2017 6:05 AM CDT Body Mass Index 27.99 12/30/2017 7:27 AM CDT Plan of Treatment Not on file Implants Implanted Type Area [employer] Manager Device Shelf Model / Identifier Expiration Serial / Lot Date Spng Surgcel 2x14in Strl - [id number] Cement/Filler/Ad J &J:ETHICON [id number] / Implanted: Qty: 1 on 12/27/2017 by German Card MD hesive / [id number] Iol Tecnis [id number] 14.0 Shane [id number] - [id number] Ophthalmology Left: [employer] 06/07/2019 [id number] / Implanted: Qty: 1 on 08/08/2015 by Marisa Silvestre MD Eye [id number] / Iol Tecnis [id number] 14.5 Shane [id number] - [id number] Ophthalmology Right: [employer] 03/19/2019 [id number] / Implanted: Qty: 1 on 08/20/2015 by Marisa Silvestre MD Eye [id number] / Procedures Procedure Name Priority Date/Time Associated Diagnosis Comments RHYTHM STRIP - SCAN 06/27/2018 5:[address] CHEST WITHOUT IV Routine 03/16/2018 2:29 Abnormal PFTs Results for this CONTRAST PM CROOK OPERATOR Abnormal screening CT procedure are in of chest the results Cough section. XR CHEST 1 VIEW STAT 01/18/2018 11:55 Results for this PORTABLE/BEDSIDE AM CDT procedure are in the results section. US THORACENTESIS STAT 01/18/2018 11:55 Pleural effusion, Results for this AM CDT left procedure are in the results section. PLATELET COUNT STAT 01/18/2018 9:29 Results for this AM CDT procedure are in the results section. PT/APTT STAT 01/18/2018 9:29 Results for this AM CDT procedure are in the results section. RHYTHM STRIP - SCAN 01/03/2018 3:00 PM CDT XR CHEST 1 VIEW BEN 12/30/2017 3:28 Results for this PORTABLE/BEDSIDE PM CDT procedure are in the results section. XR CHEST 1 VIEW Routine 12/30/2017 6:26 Results for this PORTABLE/BEDSIDE AM CDT procedure are in the results section. CBC W/PLT COUNT & Routine 12/30/2017 4:05 Results for this AUTO DIFFERENTIAL AM CDT procedure are in the results section. BASIC METABOLIC PANEL Routine 12/30/2017 4:05 Results for this (7) AM CDT procedure are in the results section. MAGNESIUM Routine 12/30/2017 4:05 Results for this AM CDT procedure are in the results section. CBC W/PLT COUNT & Routine 12/30/2017 4:05 Results for this AUTO DIFFERENTIAL AM CDT procedure are in the results section. XR CHEST 1 VIEW Routine 12/29/2017 6:14 Results for this PORTABLE/BEDSIDE AM CDT procedure are in the results section. CBC W/PLT COUNT & Routine 12/29/2017 5:24 Results for this AUTO DIFFERENTIAL AM CDT procedure are in the results section. BASIC METABOLIC PANEL Routine 12/29/2017 5:24 Results for this (7) AM CDT procedure are in the results section. MAGNESIUM Routine 12/29/2017 5:24 Results for this AM CDT procedure are in the results section. CBC W/PLT COUNT & Routine 12/29/2017 5:24 Results for this AUTO DIFFERENTIAL AM CDT procedure are in the results section. XR CHEST 1 VIEW STAT 12/28/2017 6:37 Results for this PORTABLE/BEDSIDE AM CDT procedure are in the results section. CBC W/PLT COUNT & Routine 12/28/2017 4:13 Results for this AUTO DIFFERENTIAL AM CDT procedure are in the results section. BASIC METABOLIC PANEL Routine 12/28/2017 4:13 Results for this (7) AM CDT procedure are in the results section. MAGNESIUM Routine 12/28/2017 4:13 Results for this AM CDT procedure are in the results section. CBC W/PLT COUNT & Routine 12/28/2017 4:13 Results for this AUTO DIFFERENTIAL AM CDT procedure are in the results section. POTASSIUM Routine 12/27/2017 9:58 Results for this PM CDT procedure are in the results section. MAGNESIUM Routine 12/27/2017 9:58 Results for this PM CDT procedure are in the results section. XR CHEST 1 VIEW STAT 12/27/2017 8:11 Results for this PORTABLE/BEDSIDE PM CDT procedure are in the results section. XR CHEST 1 VIEW Routine 12/27/2017 3:24 Results for this PORTABLE/BEDSIDE PM CDT procedure are in the results section. MAGNESIUM STAT 12/27/2017 2:49 Results for this PM CDT procedure are in the results section. BASIC METABOLIC PANEL STAT 12/27/2017 2:49 Results for this (7) PM CDT procedure are in the results section. CBC (HEMOGRAM ONLY) STAT 12/27/2017 2:49 Results for this PM CDT procedure are in the results section. PROCEDURE W/ DAVINCI 12/27/2017 8:00 Diaphragmatic XI AM CDT paralysis Special Needs (DAVINCI XI) INSERTION,PIGTAIL PLEURAL 12/27/2017 8:00 AM CDT Diaphragmatic paralysis CATHETER Special Needs (DAVINCI XI) THORACOSCOPY (VATS) 12/27/2017 8:00 AM CDT Diaphragmatic paralysis Special Needs (DAVINCI XI) ROBOTIC LAPAROSCOPY,HEMIDIAPHRAGM 12/27/2017 8:00 AM Diaphragmatic paralysis PLICATION CDT Special Needs (DAVINCI XI) TRANSFUSION SERVICE REPORT - 12/23/2017 6:03 PM CDT SCAN XR CHEST 2 VIEWS Routine 12/22/2017 1:32 PM CDT CBC W/PLT COUNT & AUTO Routine 12/22/2017 1:15 PM CDT Results for this DIFFERENTIAL procedure are in the results section. TYPE AND SCREEN, AUTOMATED Routine 12/22/2017 1:15 PM CDT PT/APTT Routine 12/22/2017 1:15 PM CDT COMPREHENSIVE METABOLIC Routine 12/22/2017 1:15 PM CDT Results for this PANEL procedure are in the results section. CBC W/PLT COUNT & AUTO Routine 12/22/2017 1:15 PM CDT Results for this DIFFERENTIAL procedure are in the results section. ECG 12-LEAD Routine 12/22/2017 1:10 PM CDT Procedure Note - Interface, External Ris In - 12/22/2017 4:57 PM CDT Ventricular Rate 52 BPM Atrial Rate 52 BPM P-R Interval 138 ms QRS Duration 96 ms Q-T Interval 462 ms QTC Calculation(Bazett) 429 ms P [place] 12 degrees R [place] 51 degrees T [place] 44 degrees Sinus bradycardia Otherwise normal ECG No previous ECGs available ECG 12-LEAD Routine 12/22/2017 1:10 Results for this PM CDT procedure are in the results section. MISCELLANEOUS LAB Routine 11/23/2017 3:39 ORDER PM CDT REPORT OF PROCEDURE - 11/23/2017 12:07 ENDOSCOPY URL PM CDT FLOW CYTOMETRY Routine 11/23/2017 12:06 Results for this REQUISITION PM CDT procedure are in the results section. FLOW CYTOMETRY Routine 11/23/2017 12:06 Results for this PM CDT procedure are in the results section. VIRUS CULTURE Routine 11/23/2017 11:57 Results for this AM CDT procedure are in the results section. MYCOPLASMA CULTURE Routine 11/23/2017 11:57 Results for this AM CDT procedure are in the results section. LEGIONELLA CULTURE Routine 11/23/2017 11:57 Results for this AM CDT procedure are in the results section. FUNGUS CULTURE + Routine 11/23/2017 11:57 Results for this SMEAR AM CDT procedure are in the results section. CHLAMYDIA PNEUMONIAE Routine 11/23/2017 11:57 Results for this PCR AM CDT procedure are in the results section. BRONCHIAL CULTURE + Routine 11/23/2017 11:57 Results for this GRAM STAIN AM CDT procedure are in the results section. BODY FLUID CELL COUNT Routine 11/23/2017 11:57 Results for this WITH DIFFERENTIAL AM CDT procedure are in the results section. AFB CULTURE + SMEAR Routine 11/23/2017 11:57 Results for this AM CDT procedure are in the results section. MISCELLANEOUS LAB Routine 11/23/2017 11:57 ORDER AM CDT CYTOLOGY REQUEST Routine 11/23/2017 11:52 Results for this AM CDT procedure are in the results section. CYTOLOGY AP Routine 11/23/2017 11:52 Results for this AM CDT procedure are in the results section. BRONCHOSCOPY,BRONCHIAL 11/23/2017 11:00 Cough ALVEOLAR LAVAGE AM CDT Shortness of breath Abnormal CT lung screening Case Notes BRONCHOSCOPY WITH BIOPSY, BRONCHIAL ALVEOLAR LAVAGE Special Needs (C-ARM) after 08/07/2017 Results RHYTHM STRIP - SCAN (06/27/2018 5:30 PM CDT)Only the most recent of2 resultswithin the time period is included. Narrative Performed At CT Chest without IV Contrast (03/16/2018 2:29 PM CROOK OPERATOR) Specimen Narrative Performed At Addendum Begins [facility] REPORT STATUS:A Indication: Shortness of breath Signed: Angela Logan MD Report Verified Date/Time:03/16/2018 14:14:34 Reading Location: [facility] Reading Room [address] [address] Addendum Ends FINAL REPORT EXAM: CT Chest WITHOUT contrast INDICATION: r94.2,r93.89,r05 COMPARISON: No prior CT for comparison TECHNIQUE:The Chest was scanned utilizing a multidetector helical scanner without the use of IV contrast. Coronal and sagittal reformations were obtained. High-resolution technique. IV CONTRAST: None COMPLICATIONS: None RADIATION DOSE: Total DLP: 316 mGy*cm Estimated effective dose: (DLP x 0.015 x size factor) mSv CTDIvol has been reviewed. It is below the limits set by the Radiation Protocol Committee (RPC). Appropriate CT dose reduction techniques were utilized. FINDINGS: Lines and Tubes: None. Lower Neck: No acute findings. Heart and Great Vessels: The aorta and main pulmonary artery measure 34 and 24 mm. respectively.No pericardial effusion. No significant vascular calcifications. Lymph Nodes: Within limitations of nonenhanced exam, no suspicious adenopathy. Lungs:Mild biapical scarring. There is no pneumothorax or pleural effusion. Trachea and central bronchi are unremarkable. There is significant elevation of the left hemidiaphragm with left basilar atelectasis versus scarring. Ill-defined scattered groundglass opacities are present in the right upper lobe and right middle lobe. Ground glass opacities in the medial aspect of the right lower lobe are present adjacent to prominent osteophytes. On prone imaging no significant subpleural reticulation or honeycombing identified. Upper abdomen:Decreased attenuation of the liver consistent with steatosis. Multiple calcifications are present along the left hemidiaphragm. It is unclear whether these are within the left lung base or abdomen, but are chronic in appearance. Bones and Soft Tissues: Degenerative changes. IMPRESSION: 1.Scattered geographic groundglass opacities in the right upper lobe and right middle lobe, nonspecific. No comparisons available. An acute infectious or inflammatory process could have this appearance. Sequela of prior infectious/inflammatory process not excluded. 2.Linear and groundglass opacities in the medial aspect of the right lower lobe predominantly adjacent to prominent osteophytes, statistically benign friction phenomenon. 3.Hepatic steatosis. Signed: Angela Logan MD Report Verified Date/Time:03/16/2018 14:06:33 Reading Location: [facility] Reading Room [address] [place] [address] Procedure Note Interface, External Ris In - 03/16/2018 2:31 PM CROOK OPERATOR Addendum Begins REPORT STATUS:A Indication: Shortness of breath Signed: Angela Logan MD Report Verified Date/Time: 03/16/2018 14:14:34 Reading Location: [facility] Reading Room [address] [place] [address] Addendum Ends FINAL REPORT EXAM: CT Chest WITHOUT contrast INDICATION: r94.2,r93.89,r05 COMPARISON: No prior CT for comparison TECHNIQUE: The Chest was scanned utilizing a multidetector helical scanner without the use of IV contrast. Coronal and sagittal reformations were obtained. High-resolution technique. IV CONTRAST: None COMPLICATIONS: None RADIATION DOSE: Total DLP: 316 mGy*cm Estimated effective dose: (DLP x 0.015 x size factor) mSv CTDIvol has been reviewed. It is below the limits set by the Radiation Protocol Committee (RPC). Appropriate CT dose reduction techniques were utilized. FINDINGS: Lines and Tubes: None. Lower Neck: No acute findings. Heart and Great Vessels: The aorta and main pulmonary artery measure 34 and 24 mm. respectively. No pericardial effusion. No significant vascular calcifications. Lymph Nodes: Within limitations of nonenhanced exam, no suspicious adenopathy. Lungs: Mild biapical scarring. There is no pneumothorax or pleural effusion. Trachea and central bronchi are unremarkable. There is significant elevation of the left hemidiaphragm with left basilar atelectasis versus scarring. Ill-defined scattered groundglass opacities are present in the right upper lobe and right middle lobe. Ground glass opacities in the medial aspect of the right lower lobe are present adjacent to prominent osteophytes. On prone imaging no significant subpleural reticulation or honeycombing identified. Upper abdomen: Decreased attenuation of the liver consistent with steatosis. Multiple calcifications are present along the left hemidiaphragm. It is unclear whether these are within the left lung base or abdomen, but are chronic in appearance. Bones and Soft Tissues: Degenerative changes. IMPRESSION: 1.Scattered geographic groundglass opacities in the right upper lobe and right middle lobe, nonspecific. No comparisons available. An acute infectious or inflammatory process could have this appearance. Sequela of prior infectious/inflammatory process not excluded. 2.Linear and groundglass opacities in the medial aspect of the right lower lobe predominantly adjacent to prominent osteophytes, statistically benign friction phenomenon. 3.Hepatic steatosis. Signed: Angela Logan MD Report Verified Date/Time: 03/16/2018 14:06:33 Reading Location: [facility] Reading Room [address] [place] [address] Performing Organization Address City/State/Zipcode Phone Number [phone] XR chest 1 view portable / bedside (01/18/2018 11:55 AM CDT)Only the most recent of7 resultswithin the time period is included. Specimen Narrative Performed At FINAL REPORT [facility] Chest one view. Clinical history: s/p Thoracentesis LEFT Comparison: December 30, 2017 Discussion: A frontal chest is provided. Cardiomediastinal contours are unchanged. There is left basilar atelectasis or consolidation, probable small residual left effusion. No pneumothorax. No evidence of gina pulmonary edema. Right lung is grossly clear. Signed: Priti Gomez MD Report Verified Date/Time:01/18/2018 12:46:35 Reading Location: [address] Consult Reading Room Procedure Note Interface, External Ris In - 01/18/2018 12:48 PM CDT FINAL REPORT Chest one view. Clinical history: s/p Thoracentesis LEFT Comparison: December 30, 2017 Discussion: A frontal chest is provided. Cardiomediastinal contours are unchanged. There is left basilar atelectasis or consolidation, probable small residual left effusion. No pneumothorax. No evidence of gina pulmonary edema. Right lung is grossly clear. Signed: Priti Gomez MD Report Verified Date/Time: 01/18/2018 12:46:35 Reading Location: [address] Consult Reading Room Performing Organization Address City/State/Zipcode Phone Number [facility] US thoracentesis (01/18/2018 11:55 AM CDT) Specimen Narrative Performed At FINAL REPORT [facility] PROCEDURE: Ultrasound-guided thoracentesis INDICATION: 72-year-old woman with left pleural effusion. DESCRIPTION: After obtaining informed written consent, ultrasound scan showed pleural effusion on the left. The overlying skin was prepped and draped in the usual, sterile fashion and local 1% lidocaine anesthesia was administered. A 4 German catheter was advanced into the pleural cavity and 400 cc of serosanguineous fluid was removed. The catheter was removed without immediate complication. Samples were sent to the lab for storage. IMPRESSION: Uncomplicated ultrasound-guided left thoracentesis with 400 cc fluid removed. Signed: Aden Love MD Report Verified Date/Time:01/18/2018 14:02:44 Reading Location: [facility] [id number] Ultrasound Reading Room Procedure Note Interface, External Ris In - 01/18/2018 6:42 PM CDT FINAL REPORT PROCEDURE: Ultrasound-guided thoracentesis INDICATION: 72-year-old woman with left pleural effusion. DESCRIPTION: After obtaining informed written consent, ultrasound scan showed pleural effusion on the left. The overlying skin was prepped and draped in the usual, sterile fashion and local 1% lidocaine anesthesia was administered. A 4 German catheter was advanced into the pleural cavity and 400 cc of serosanguineous fluid was removed. The catheter was removed without immediate complication. Samples were sent to the lab for storage. IMPRESSION: Uncomplicated ultrasound-guided left thoracentesis with 400 cc fluid removed. Signed: Aden Love MD Report Verified Date/Time: 01/18/2018 14:02:44 Reading Location: [facility] [id number] Ultrasound Reading Room Performing Organization Address City/[facility] Phone Number RIS PT/aPTT (01/18/2018 9:29 AM CDT)Only the most recent of2 resultswithin the time period is included. Protime 15.1 (H) 11.7 - 14.7 seconds [facility] INR 1.2 <=5.9 [facility] PTT 27.0 22.5 - 36.0 seconds [facility] Specimen Blood Narrative Performed At [facility] RECOMMENDED COUMADIN/WARFARIN INR THERAPY RANGES STANDARD DOSE: 2.0 - 3.0 Includes: PROPHYLAXIS for venous thrombosis, systemic embolization; TREATMENT for venous thrombosis and/or pulmonary embolus. HIGH RISK: Target INR is 2.5-3.5 for patients with mechanical heart valves. Performing Organization Address City/[facility]/Zipcode Phone Number [address] [address] [phone] CENTER Platelet count (01/18/2018 9:29 AM CDT) Platelets 254 150 - 450 K/CU MM [facility] Specimen Blood Performing Organization Address City/State/Zipcode Phone Number [facility] [address] [place] [address] CENTER CBC with platelet count + automated diff (12/30/2017 4:05 AM CDT)Only the most recent of4 resultswithin the time period is included. WBC 9.7 3.5 - 10.5 K/L [facility] RBC 3.89 (L) 3.93 - 5.22 M/L [facility] Hemoglobin 11.9 11.2 - 15.7 GM/DL [facility] Hematocrit 35.4 34.1 - 44.9 % [facility] MCV 91.0 79.4 - 94.8 fL [facility] MCH 30.6 25.6 - 32.2 pg [facility] MCHC 33.6 32.2 - 35.5 GM/DL [facility] RDW 13.6 11.7 - 14.4 % [facility] Platelets 199 150 - 450 K/CU MM [facility] MPV 11.1 9.4 - 12.3 fL [facility] nRBC 0 0 - 0 /100 WBC [facility] % Neutros 68 % [facility] % Lymphs 19 % [facility] % Monos 8 % [facility] % Eos 4 % [facility] % Baso 0 % [facility] # Neutros 6.61 (H) 1.56 - 6.13 K/L [facility] # Lymphs 1.86 1.18 - 3.74 K/L [facility] # Monos 0.81 (H) 0.24 - 0.36 K/L [facility] # Eos 0.36 0.04 - 0.36 K/L [facility] # Baso 0.01 0.01 - 0.08 K/L [facility] Immature Granulocytes-Relative 1 0 - 1 % [facility] Specimen Blood Performing Organization Address City/State/Zipcode Phone Number [address] [phone] [place] Magnesium (12/30/2017 4:05 AM CDT)Only the most recent of5 resultswithin the time period is included. Magnesium 2.0 1.6 - 2.6 mg/dL [facility] Specimen Blood Performing Organization Address City/[facility] Phone Number [address] [address] [place] Basic Metabolic Panel (12/30/2017 4:05 AM CDT)Only the most recent of4 resultswithin the time period is included. Sodium 138 136 - 145 meq/L [facility] Potassium 3.2 (L) 3.5 - 5.1 meq/L [facility] Chloride 102 98 - 107 meq/L [facility] CO2 30 (H) 22 - 29 meq/L [facility] BUN 6 (L) 7 - 21 mg/dL [facility] [facility] Creatinine 0.67 0.57 - 1.25 mg/dL [facility] Glucose 113 (H) 70 - 105 mg/dL [facility] Calcium 8.7 8.4 - 10.2 mg/dL [facility] EGFR 87Comment: ESTIMATED GFR IS mL/min/1.73 sq m [facility] NOT ACCURATE [facility] CLEARANCE IN PREDICTING GLOMERULAR FILTRATION RATE. ESTIMATED GFR IS NOT APPLICABLE FOR DIALYSIS PATIENTS. Specimen Blood Performing Organization Address City/State/Zipcode Phone Number [address] [address] CENTER Potassium (12/27/2017 9:58 PM CDT) Potassium 3.5 3.5 - 5.1 meq/L [facility] Specimen Blood Performing Organization Address City/[facility] Phone Number [address] [address] [facility] CBC (Hemogram only) (12/27/2017 2:49 PM CDT) WBC 16.2 (H) 3.5 - 10.5 K/L [facility] RBC 4.32 3.93 - 5.22 M/L [facility] Hemoglobin 12.9 11.2 - 15.7 GM/DL [facility] Hematocrit 40.0 34.1 - 44.9 % [facility] MCV 92.6 79.4 - 94.8 fL [facility] MCH 29.9 25.6 - 32.2 pg [facility] MCHC 32.3 32.2 - 35.5 GM/DL [facility] RDW 13.5 11.7 - 14.4 % [facility] Platelets 238 150 - 450 K/CU MM [facility] MPV 10.1 9.4 - 12.3 fL [facility] nRBC 0 0 - 0 /100 WBC [facility] Specimen Blood Performing Organization Address City/[facility]/Zipcode Phone Number [address] [address] [facility] TRANSFUSION SERVICE REPORT - SCAN (12/23/2017 6:03 PM CDT) Narrative Performed At XR chest 2 views (12/22/2017 1:32 PM CDT) Specimen Narrative Performed At FINAL REPORT RIS Chest x-ray Clinical History: diaphragmatic paralsis Comparison: February 20, 2015 Views: 2 Chest x-ray: The cardiac and mediastinal silhouettes are not adequately visualized.There is no evidence of a pneumothorax.There is no evidence of apleural effusion.There is evidence of overt cardiac failure.The visible regional skeleton is intact.There is no evidence of a focal parenchymal opacity. Impression: There remains elevation of the left diaphragm consistent with the patient's clinical diagnosis. As compared to the prior study there is patchy density is visualized in the right mid and lower lung zone without evidence of a focal parenchymal opacity nodule. These findings may represent developing pneumonitis and follow-up studies recommended if clinically appropriate. Signed: Beverly Chou MD Report Verified Date/Time:12/22/2017 13:47:10 Reading Location: [address] Radiology Reading Room Procedure Note Interface, External Ris In - 12/22/2017 1:49 PM CDT FINAL REPORT Chest x-ray Clinical History: diaphragmatic paralsis Comparison: February 20, 2015 Views: 2 Chest x-ray: The cardiac and mediastinal silhouettes are not adequately visualized. There is no evidence of a pneumothorax. There is no evidence of a pleural effusion. There is evidence of overt cardiac failure. The visible regional skeleton is intact. There is no evidence of a focal parenchymal opacity. Impression: There remains elevation of the left diaphragm consistent with the patient's clinical diagnosis. As compared to the prior study there is patchy density is visualized in the right mid and lower lung zone without evidence of a focal parenchymal opacity nodule. These findings may represent developing pneumonitis and follow-up studies recommended if clinically appropriate. Signed: Beverly Chou MD Report Verified Date/Time: 12/22/2017 13:47:10 Reading Location: [address] Radiology Reading Room Performing Organization Address City/State/Zipcode Phone Number GE RIS Type and screen, automated (12/22/2017 1:15 PM CDT) ABO/RH AUTOMATED (BEAKER) A POSITIVE [facility] Ab Scrn NEGATIVE [facility] Specimen Blood Performing Organization Address City/[facility]/Zipcode Phone Number [facility] [address] [place] [address] Comprehensive metabolic panel (12/22/2017 1:15 PM CDT) Protein, Total 7.2 6.0 - 8.3 gm/dL [facility] Albumin 4.2 3.5 - 5.0 g/dL [facility] Alkaline Phosphatase 131 40 - 150 U/L [facility] Total Bilirubin 0.6 0.2 - 1.2 mg/dL [facility] Sodium 144 136 - 145 meq/L [facility] Potassium 3.5 3.5 - 5.1 meq/L [facility] Chloride 104 98 - 107 meq/L [facility] CO2 32 (H) 22 - 29 meq/L [facility] BUN 5 (L) 7 - 21 mg/dL [facility] Creatinine 0.85 0.57 - 1.25 mg/dL [facility] Glucose 94 70 - 105 mg/dL [facility] Calcium 9.7 8.4 - 10.2 mg/dL [facility] AST 27 5 - 34 U/L [facility] ALT 21 6 - 55 U/L [facility] EGFR 66Comment: ESTIMATED GFR mL/min/1.[address] [facility] IS NOT ACCURATE [facility] CREATININE CLEARANCE IN PREDICTING GLOMERULAR FILTRATION RATE. ESTIMATED GFR IS NOT APPLICABLE FOR DIALYSIS PATIENTS. Specimen Blood Performing Organization Address City/[facility]/Zipcode Phone Number [facility] [address] [place] [address] CENTER ECG 12 lead (12/22/2017 1:10 PM CDT) Specimen Narrative Performed At Ventricular Rate 52 BPM GE MUSE Atrial Rate 52 BPM P-R Interval 138 ms QRS Duration 96 ms Q-T Interval 462 ms QTC Calculation(Bazett) 429 ms P [place] 12 degrees R [place] 51 degrees T [place] 44 degrees Sinus bradycardia Otherwise normal ECG No previous ECGs available Confirmed by Jeremias PAINTER BASANT ([id number]) on 12/23/2017 10:12:04 AM Procedure Note Interface, External Ris In - 12/23/2017 10:12 AM CDT Ventricular Rate 52 BPM Atrial Rate 52 BPM P-R Interval 138 ms QRS Duration 96 ms Q-T Interval 462 ms QTC Calculation(Bazett) 429 ms P [place] 12 degrees R [place] 51 degrees T [place] 44 degrees Sinus bradycardia Otherwise normal ECG No previous ECGs available Confirmed by Jeremias PAINTER, NINO ([id number]) on 12/23/2017 10:12:04 AM Performing Organization Address City/State/Zipcode Phone Number GE MUSE Resp panel (11/23/2017 3:39 PM CDT)Only the most recent of2 resultswithin the time period is included. Scan Result [facility] Specimen BAL Narrative Performed At Performing Organization Address City/State/Zipcode Phone Number [facility] [address] [place], [place] REPORT OF PROCEDURE - ENDOSCOPY URL (11/23/2017 12:07 PM CDT) Narrative Performed At Flow Cytometry Requisition (11/23/2017 12:06 PM CDT) Flow Cytometry See Separate Report [facility] Case # [id number] [facility] Specimen BAL Performing Organization Address City/State/Zipcode Phone Number [facility] [address] [place] [address] [phone] CENTER Flow Cytometry (11/23/2017 12:06 PM CDT) Case Report Flow Cytometry Report Case: [id number] [facility] Authorizing Provider:Josefa Florence MD Collected: 11/23/2017 1206 [facility]: 11/23/2017 1513 Pathologist: Asaf Cevallos MD Specimen:Other Flow Interpretation LEFT UPPER LOBE LUNG BRONCHOALVEOLAR LAVAGE FLOW CYTOMETRY : T CELLS SHOW A [facility] CD4:CD8 RATIO OF 2.6 [facility] CPT Code(s) 11450 [facility] CLINICAL HISTORY Shortness of breath [facility] SPECIMEN SOURCE LEFT UPPER LOBE LUNG BAL [facility] CELLULAR BIOMARKER ANALYSIS CD3, CD4, CD8, CD45 [facility] IMMUNOPHENOTYPIC FINDINGS Viability: 87% [facility] Bright CD45+ lymphocytes comprise 55.4% of total cells, and include 97.5% of [facility] CD3+ T cells. T cells are comprised of 71.6% CD4+CD8- and 27.8% CD4-CD8+ subsets. DISCLAIMER These tests were developed and their performance characteristics determined by [facility]. They have not been cleared or approved by the U.S. Food and Drug Administration. The FDA has determined th [facility] at such clearance or approval is not necessary. It should not be regarded as investigational or for research. This laboratory is certified under the Clinical Laboratory Improvement Amendments of 1988 (" [facility] CLIA") as qualified to perform high-complexity clinical testing. Specimen Other Performing Organization Address City/State/Zipcode Phone Number [facility] [address] [place] [address] CENTER AFB culture + smear (11/23/2017 11:57 AM CDT) Result No acid-fast bacilli isolated in [facility] 42 days [facility]ENTER AFB Smear No acid fast bacilli seen [facility] Specimen BAL Performing Organization Address City/[facility]/Zipcode Phone Number [facility] [address] [place] [address] CENTER Chlamydia pneumoniae PCR (11/23/2017 11:57 AM CDT) Source BAL [facility] C. pneumoniae, PCR NOT DETECTED [facility] Comment: INCORPORATED REFERENCE RANGE: NOT DETECTED This test was developed and its analytical performance characteristics have been determined by [facility]. It has not been cleared or approved by FDA. This assay has been validated pursuant to the CLIA regulations and is used for clinical purposes. Specimen BAL Narrative Performed At Performing Lab [facility] *QDID [facility] [address] [place] [address] Sabrina Begum MD Performing Organization Address City/[facility] Phone Number [facility] [place] [address] INCORPORATED [address] [facility] Mycoplasma culture (11/23/2017 11:57 AM CDT) SOURCE-BODY SITE BAL [facility] Status FINAL [facility] Cult-Mycoplasma NOT ISOLATEDComment: [facility] REFERENCE RANGE: NOT ISOLATED Specimen BAL Narrative Performed At Performing Lab [facility] *QDID [facility] [address] [place] [address] Sabrina Begum MD Performing Organization Address [facility] Phone Number [facility] [place] [address] [facility] [address] [facility] Legionella culture (11/23/2017 11:57 AM CDT) Result No Legionella species isolated [facility] Specimen BAL Performing Organization Address City/[facility]/Zipcode Phone Number [address] [address] [phone] CENTER Bronchial culture + gram stain (11/23/2017 11:57 AM CDT) Result No growth [facility] Gram Stain Result 1+ WBCs [facility] Gram Stain Result No organisms seen [facility] Specimen BAL Performing Organization Address [facility] Phone Number [address] [address] CENTER Virus culture Expected virus: unknown (11/23/2017 11:57 AM CDT) Result No virus isolated [facility] Specimen BAL Narrative Performed At Performing Organization Address City/State/Zipcode Phone Number [facility] [address] [place] [address] [phone] [facility] Fungus culture + smear (11/23/2017 11:57 AM CDT) Result No fungus isolated in 28 days [facility] Fungus Smear No fungi seen [facility] Specimen BAL Performing Organization Address [facility]/Zipcode Phone Number [address] [address] [facility] Body fluid cell count with differential (11/23/2017 11:57 AM CDT) Appearance Moderately Cloudy (A) Clear [facility] Color Comment: Red Tinge Colorless, Straw [facility] RBCs 4,000 (H) <=1 /cu mm [facility] Adjusted WBC Count 353 (H) <=5 /cu mm [facility] Lining Cells 106 (H) <=1 /cu mm [facility] % Segs 32Comment: Diff performed % [facility] on degenerated WBCs [facility] % Lymphs 32 % [facility] % Monos 36 % [facility] % Eos 0 % [facility] % Baso 0 % [facility] Container Body Fluid EDTA Tube [facility] Specimen BAL Performing Organization Address City/[facility]/Zipcode Phone Number [address] [address] [facility] CYTOLOGY REQUEST (11/23/2017 11:52 AM CDT) Cytology See Separate Report [facility] Specimen BAL Performing Organization Address City/[facility]/Zipcode Phone Number [facility] [address] [place] [address] CENTER Cytology (11/23/2017 11:52 AM CDT) Case Report Medical Cytology Report Case: [id number] [facility] Authorizing Provider:Josefa Florence MD Collected: 11/23/2017 1152 [facility]Received: 11/23/2017 1426 Pathologist: Aline Morales Specimen:Lung, Left Upper Lobe, in CRR routine cyto DIAGNOSIS LEFT UPPER LOBE LUNG BAL (CYTOSPINS): [facility] - NEGATIVE FOR MALIGNANCY [facility] MULTINUCLEATED GIANT CELLS AND INFLAMMATORY CELLS PRESENT Signing Pathologist Direct Phone Line: [phone] CPT Code(s) 85379 [facility] CLINICAL DATA Cough, shortness of breath, [facility] abnormal CT lung screening [facility] SPECIMEN SOURCE LEFT UPPER LOBE LUNG BAL [facility] GROSS DESCRIPTION 20 mls in cytorich red; [address] [facility] Collected: [id number] [facility] Received: [id number] STATEMENT OF ADEQUACY Satisfactory [facility] Technical component was [facility] performed at [place], Department of [facility] Pathology, [address] [place] [address], Professional component was [facility] performed at [place], Department of [facility] Pathology, [address] [place] [address], Specimen BAL Narrative Performed At Performing Organization Address City/State/Zipcode Phone Number [address] [address] CENTER after 08/07/2017 Insurance Payer Benefit Plan / Subscriber ID Type Phone Address Group [employer] - MEDICARE AET[employer] MEDICARE HMO xxxxxxxx [phone] [address] [place] [place] [address] Advance Directives For more information, please contact:[address] [phone] Code Status Date Activated Date Inactivated Comments Full Code 12/27/2017 4:52 PM 12/31/2017 5:15 PM This code status was determined by: Patient Full Code 12/27/2017 6:18 AM 12/27/2017 4:52 PM This code status was determined by: Patient
--- OUTSIDE RECORDS SUMMARY | 2018-08-08 09:40 | XMS REPORT ---
:1945 Author Organization [facility] Address [address] [place] [address] Care Team Providers Name Role Phone HILLARY POLLARD Unavailable Unavailable TATE MCDANIEL Unavailable Unavailable RANDY, LUIS CARLOS CAVAZOS Unavailable Unavailable Problems This patient has no known problems. Allergies, Adverse Reactions, Alerts This patient has no known allergies or adverse reactions. Medications This patient has no known medications. Results Test Description Test Time Test Comments Text Results Atomic Results Result Comments CT, CHEST, WITHOUT 2018-03-16 Addendum BeginsREPORT IV CONTRAST 14:14:00 STATUS:A Indication: Shortness of breath Signed: Angela Logan MDReport Verified Date/Time: 03/16/2018 14:14:34 Reading Location: [facility] Reading Room [address] [place], [place] [address]ddendum EndsFINAL REPORT EXAM: CT Chest WITHOUT contrast INDICATION: [...] benign friction phenomenon. 3.Hepatic steatosis. Signed: Angela Loganort Verified Date/Time: 03/16/2018 14:06:33 Reading Location: [facility] Reading Room [address] [place] [address] U/S, THORACENTESIS 2018-01-18 S/p left FINAL REPORT PATIENT ID: 14:02:00 hemidiaphragm [id number] PROCEDURE: plication on Ultrasound-guided 12/27/2017. Left thoracentesis INDICATION: pleural effusion 72-year-old woman with left noted on post-op pleural effusion. xray.Laterality?->L DESCRIPTION: After obtaining eftReason for informed written consent, Exam:->left pleural ultrasound scan showed effusion pleural effusion on the left. The overlying skin was prepped and draped in the usual, sterile fashion and local 1% lidocaine anesthesia was administered. A 4 Japanese catheter was advanced into the pleural cavity and 400 cc of serosanguineous fluid was removed. The catheter was removed without immediate complication. Samples were sent to the lab for storage. IMPRESSION:Uncomplicated ultrasound-guided left thoracentesis with 400 cc fluid removed. Signed: Aden Love MDReport Verified Date/Time: 01/18/2018 14:02:44 Reading Location: [facility] [id number] Ultrasound Reading Room , CHEST, 1 VIEW, 2018-01-18 Reason for FINAL REPORT PATIENT ID: NON DEPT 12:46:00 exam:->s/p [id number] Chest one view. Thoracentesispt. in Clinical history: s/p u/s #3Reason for ThoracentesisLEFT Comparison: exam:->LEFTShould December 30, 2017 Discussion: A this be performed frontal chest is provided. at the Cardiomediastinal contours bedside?->Yes are unchanged. There is left basilar atelectasis or consolidation, probable small residual left effusion. No pneumothorax. No evidence of gina pulmonary edema. Right lung is grossly clear. Signed: Priti Gomez Verified Date/Time: 01/18/2018 12:46:35 Reading Location: [facility] [id number] Consult Reading Room /APTT 2018-01-18 10:04:00 Test Item Value Reference Range Comments PROTIME (BEAKER) (test hzto=416) 15.1 seconds 11.7-14.7 INR (BEAKER) (test znwc=346) 1.2 <=5.9 PARTIAL THROMBOPLASTIN TIME (BEAKER) (test ejpn=290) 27.0 seconds 22.5-36.0 RECOMMENDED COUMADIN/WARFARIN INR THERAPY RANGESSTANDARD DOSE: 2.0 - 3.0 Includes: PROPHYLAXIS forvenous thrombosis, systemic embolization; TREATMENT for venous thrombosis and/or pulmonary embolus.HIGH RISK: Target INR is 2.5-3.5 for patients with mechanical heart valves.PLATELET [id number] 09:44:00 Test Item Value Reference Range Comments PLATELET COUNT (BEAKER) (test hfxk=604) 254 K/CU MM 150-450 AFB CULTURE + [id number] 16:58:00 Test Item Value Reference Range Comments CULTURE (BEAKER) (test No acid-fast bacilli isolated rlbu=1722) in 42 days AFB SMEAR (BEAKER) (test No acid fast bacilli seen nuky=111) RAD, CHEST, 1 VIEW, NON [id number] 16:14:00Reason for exam:->s/p chest tube removalShould this be performed at the bedside?->YesFINAL REPORT Chest one view INDICATION: Chest tube removal COMPARISON : 12/30/2017 IMPRESSION: The small left pneumothorax is stable post pigtail pleural catheter removal. There ispleural thickening and probable small effusion. Residual pneumomediastinum and extensive bilateral subcutaneous emphysema are stable. The cardiomediastinal contours are partially obscured but stable. Low lung volumes are seen with pulmonary vascular congestion and bibasilar and right perihilar opacities that could indicate atelectasis. Pneumonitis should be excluded clinically. A small right pleural effusion is suspected. Signed: Jodie Cesar MDReport Verified Date/Time: 2017 16:14:56Reading Location: [address] Consult Reading Room RAD, CHEST, 1 VIEW, NON [id number] 07:19:00Reason for exam:->evaluate for left pneumothoraxShould this be performed at the bedside?->YesFINAL REPORT Chest one view INDICATION: Left pneumothorax COMPARISON: 12/29/2017 IMPRESSION: The small left pneumothorax has decreased with a pigtail pleural catheter in place. There is pleural thickening and probable small effusion. Residual pneumomediastinum and extensive bilateral subcutaneous emphysema are also decreased. The cardiomediastinal contours are partially obscuredbut stable. Lung volumes have decreased with pulmonary vascular congestion and bibasilar opacities that may reflect atelectasis. Pneumonitis should be excluded clinically. A small right pleural effusion may be present. Signed: Jodie Cesar MDReport Verified Date/Time: 12/30/2017 07:19:06 Reading Location: [facility] Radiology Reading Room [id number] 04:54:00 Test Item Value Reference Range Comments MAGNESIUM (BEAKER) (test gvha=394) 2.0 mg/dL 1.6-2.6 BASIC METABOLIC [id number] 04:54:00 Test Item Value Reference Range Comments SODIUM (BEAKER) (test 138 meq/L 136-145 ujig=008) POTASSIUM (BEAKER) (test 3.2 meq/L 3.5-5.1 asyr=116) CHLORIDE (BEAKER) (test 102 meq/L 98-107 jllt=976) CO2 (BEAKER) (test 30 meq/L 22-29 vfix=841) BLOOD UREA NITROGEN 6 mg/dL 7-21 (BEAKER) (test ozdv=125) CREATININE (BEAKER) (test 0.67 mg/dL 0.57-1.25 qauc=084) GLUCOSE RANDOM (BEAKER) 113 mg/dL 70-105 (test agyj=691) CALCIUM (BEAKER) (test 8.7 mg/dL 8.4-10.2 wzus=402) EGFR (BEAKER) (test 87 mL/min/1.73 sq m ESTIMATED GFR IS NOT ykov=6518) ACCURATE CREATININE CLEARANCE IN PREDICTING GLOMERULAR FILTRATION RATE. ESTIMATED GFR IS NOT APPLICABLE FOR DIALYSIS PATIENTS. CBC W/PLT COUNT & AUTO [id number] 04:40:00 Test Item Value Reference Range Comments WHITE BLOOD CELL COUNT (BEAKER) (test kwvr=642) 9.7 K/ L 3.5-10.5 RED BLOOD CELL COUNT (BEAKER) (test stsr=782) 3.89 M/ L 3.93-5.22 HEMOGLOBIN (BEAKER) (test dbbt=722) 11.9 GM/DL 11.2-15.7 HEMATOCRIT (BEAKER) (test lyzx=771) 35.4 % 34.1-44.9 MEAN CORPUSCULAR VOLUME (BEAKER) (test jxnb=546) 91.0 fL 79.4-94.8 MEAN CORPUSCULAR HEMOGLOBIN (BEAKER) (test 30.6 pg 25.6-32.2 ugpg=802) MEAN CORPUSCULAR HEMOGLOBIN CONC (BEAKER) (test 33.6 GM/DL 32.2-35.5 yykv=395) RED CELL DISTRIBUTION WIDTH (BEAKER) (test 13.6 % 11.7-14.4 jsoo=573) PLATELET COUNT (BEAKER) (test xsrs=502) 199 K/CU MM 150-450 MEAN PLATELET VOLUME (BEAKER) (test zfzg=731) 11.1 fL 9.4-12.3 NUCLEATED RED BLOOD CELLS (BEAKER) (test 0 /100 WBC 0-0 nsph=066) NEUTROPHILS RELATIVE PERCENT (BEAKER) (test 68 % fghg=159) LYMPHOCYTES RELATIVE PERCENT (BEAKER) (test 19 % fzlm=106) MONOCYTES RELATIVE PERCENT (BEAKER) (test 8 % bgje=273) EOSINOPHILS RELATIVE PERCENT (BEAKER) (test 4 % bpqd=108) BASOPHILS RELATIVE PERCENT (BEAKER) (test 0 % ycwm=817) NEUTROPHILS ABSOLUTE COUNT (BEAKER) (test 6.61 K/ L 1.56-6.13 bjay=488) LYMPHOCYTES ABSOLUTE COUNT (BEAKER) (test 1.86 K/ L 1.18-3.74 hajt=976) MONOCYTES ABSOLUTE COUNT (BEAKER) (test 0.81 K/ L 0.24-0.36 vydp=449) EOSINOPHILS ABSOLUTE COUNT (BEAKER) (test 0.36 K/ L 0.04-0.36 keel=361) BASOPHILS ABSOLUTE COUNT (BEAKER) (test 0.01 K/ L 0.01-0.08 sqfk=012) IMMATURE GRANULOCYTES-RELATIVE PERCENT (BEAKER) 1 % 0-1 (test osmy=6617) RAD, CHEST, 1 VIEW, NON [id number] 08:09:00Reason for exam:->evaluate for left pneumothoraxShould this be performed at the bedside?->YesFINAL REPORT Chest one view INDICATION: Left pneumothorax COMPARISON: 12/28/2017 IMPRESSION: A small volume left pneumothorax is decreased with apical pleural catheter in place. There is pleural thickening and probable effusion. Residual pneumomediastinum and extensive bilateral subcutaneous emphysema are stable. The cardiomediastinal contours are stable. Pulmonary vascular congestion has regressed. Residual bibasilar opacities may reflect atelectasis. Pneumonitis should be excluded clinically. Signed: Jodie Cesar MDReport Verified Date/Time: 12/29/2017 08:09:18 Reading Location: [facility] Radiology Reading Room [id number] 07:06:00 Test Item Value Reference Range Comments MAGNESIUM (BEAKER) (test ncwf=092) 2.0 mg/dL 1.6-2.6 BASIC METABOLIC [id number] 07:06:00 Test Item Value Reference Range Comments SODIUM (BEAKER) (test 137 meq/L 136-145 jefq=682) POTASSIUM (BEAKER) (test 3.5 meq/L 3.5-5.1 frwe=278) CHLORIDE (BEAKER) (test 104 meq/L 98-107 wiwn=181) CO2 (BEAKER) (test 25 meq/L 22-29 tvoc=343) BLOOD UREA NITROGEN 5 mg/dL 7-21 (BEAKER) (test ifwo=268) CREATININE (BEAKER) (test 0.70 mg/dL 0.57-1.25 tdsx=296) GLUCOSE RANDOM (BEAKER) 123 mg/dL 70-105 (test qbea=395) CALCIUM (BEAKER) (test 9.1 mg/dL 8.4-10.2 qcqy=820) EGFR (BEAKER) (test 82 mL/min/1.73 sq m ESTIMATED GFR IS NOT szre=6037) ACCURATE CREATININE CLEARANCE IN PREDICTING GLOMERULAR FILTRATION RATE. ESTIMATED GFR IS NOT APPLICABLE FOR DIALYSIS PATIENTS. CBC W/PLT COUNT & AUTO [id number] 06:43:00 Test Item Value Reference Range Comments WHITE BLOOD CELL COUNT (BEAKER) (test btss=099) 15.5 K/ L 3.5-10.5 RED BLOOD CELL COUNT (BEAKER) (test juqv=611) 4.19 M/ L 3.93-5.22 HEMOGLOBIN (BEAKER) (test uixe=150) 12.7 GM/DL 11.2-15.7 HEMATOCRIT (BEAKER) (test rhtj=383) 38.6 % 34.1-44.9 MEAN CORPUSCULAR VOLUME (BEAKER) (test qsxo=657) 92.1 fL 79.4-94.8 MEAN CORPUSCULAR HEMOGLOBIN (BEAKER) (test 30.3 pg 25.6-32.2 dtrs=930) MEAN CORPUSCULAR HEMOGLOBIN CONC (BEAKER) (test 32.9 GM/DL 32.2-35.5 ioyy=219) RED CELL DISTRIBUTION WIDTH (BEAKER) (test 13.8 % 11.7-14.4 galf=869) PLATELET COUNT (BEAKER) (test iqag=708) 223 K/CU MM 150-450 MEAN PLATELET VOLUME (BEAKER) (test dzqz=412) 11.2 fL 9.4-12.3 NUCLEATED RED BLOOD CELLS (BEAKER) (test 0 /100 WBC 0-0 ymui=672) NEUTROPHILS RELATIVE PERCENT (BEAKER) (test 79 % mtij=139) LYMPHOCYTES RELATIVE PERCENT (BEAKER) (test 11 % qipw=565) MONOCYTES RELATIVE PERCENT (BEAKER) (test 8 % fiax=152) EOSINOPHILS RELATIVE PERCENT (BEAKER) (test 1 % rmoi=762) BASOPHILS RELATIVE PERCENT (BEAKER) (test 0 % ijvb=941) NEUTROPHILS ABSOLUTE COUNT (BEAKER) (test 12.20 K/ L 1.56-6.13 ppix=951) LYMPHOCYTES ABSOLUTE COUNT (BEAKER) (test 1.77 K/ L 1.18-3.74 eiug=777) MONOCYTES ABSOLUTE COUNT (BEAKER) (test 1.18 K/ L 0.24-0.36 sarf=095) EOSINOPHILS ABSOLUTE COUNT (BEAKER) (test 0.20 K/ L 0.04-0.36 shfw=118) BASOPHILS ABSOLUTE COUNT (BEAKER) (test 0.04 K/ L 0.01-0.08 jwgk=886) IMMATURE GRANULOCYTES-RELATIVE PERCENT (BEAKER) 1 % 0-1 (test mrvg=4528) RAD, CHEST, 1 VIEW, NON [id number] 07:08:00Reason for exam:->line placement Should this be performed at the bedside?->YesFINAL REPORT Chest one view. Clinical history: line placement Comparison: Chest radiograph 12/27/2017, 8:48 AM. Technique: A single frontal view of the chest was obtained. Findings:There is a small left apical pneumothorax. There is a pigtail chest tube with tip in the left lung base. The heart size is stable. The aorta is atherosclerotic. There is pneumomediastinum. There is mild diffuse interstitial prominence. There are bibasilar linear and patchy opacities which may represent atelectasis and/or pneumonia. There is no definite pleural effusion. There is diffuse subcutaneous emphysema in the bilateral chest huber and lower neck. Signed: Randall Nevarez [facility] NETWORKeport Verified Date/Time: 12/28/2017 07:08:18 Reading Location: [facility] B1 C013Y CT Body Reading Room Electronically signed by: RANDALL NEVAREZ MD on 2017 07:08 [id number] 05:04:00 Test Item Value Reference Range Comments MAGNESIUM (BEAKER) (test yxns=302) 2.6 mg/dL 1.6-2.6 BASIC METABOLIC [id number] 05:04:00 Test Item Value Reference Range Comments SODIUM (BEAKER) (test 138 meq/L 136-145 geav=774) POTASSIUM (BEAKER) (test 4.0 meq/L 3.5-5.1 dgto=304) CHLORIDE (BEAKER) (test 109 meq/L 98-107 uzju=638) CO2 (BEAKER) (test 24 meq/L 22-29 eytl=987) BLOOD UREA NITROGEN 5 mg/dL 7-21 (BEAKER) (test durv=620) CREATININE (BEAKER) (test 0.73 mg/dL 0.57-1.25 gbzt=115) GLUCOSE RANDOM (BEAKER) 120 mg/dL 70-105 (test oadn=088) CALCIUM (BEAKER) (test 8.4 mg/dL 8.4-10.2 xadm=750) EGFR (BEAKER) (test 79 mL/min/1.73 sq m ESTIMATED GFR IS NOT xdkm=4760) ACCURATE CREATININE CLEARANCE IN PREDICTING GLOMERULAR FILTRATION RATE. ESTIMATED GFR IS NOT APPLICABLE FOR DIALYSIS PATIENTS. CBC W/PLT COUNT & AUTO [id number] 04:51:00 Test Item Value Reference Range Comments WHITE BLOOD CELL COUNT (BEAKER) (test egzf=705) 14.6 K/ L 3.5-10.5 RED BLOOD CELL COUNT (BEAKER) (test eljk=858) 3.86 M/ L 3.93-5.22 HEMOGLOBIN (BEAKER) (test urly=283) 11.6 GM/DL 11.2-15.7 HEMATOCRIT (BEAKER) (test grvp=390) 36.3 % 34.1-44.9 MEAN CORPUSCULAR VOLUME (BEAKER) (test ziox=827) 94.0 fL 79.4-94.8 MEAN CORPUSCULAR HEMOGLOBIN (BEAKER) (test 30.1 pg 25.6-32.2 vvyj=769) MEAN CORPUSCULAR HEMOGLOBIN CONC (BEAKER) (test 32.0 GM/DL 32.2-35.5 nkfo=089) RED CELL DISTRIBUTION WIDTH (BEAKER) (test 13.7 % 11.7-14.4 cfvc=287) PLATELET COUNT (BEAKER) (test mibp=633) 194 K/CU MM 150-450 MEAN PLATELET VOLUME (BEAKER) (test ulwh=876) 10.7 fL 9.4-12.3 NUCLEATED RED BLOOD CELLS (BEAKER) (test 0 /100 WBC 0-0 kfqg=252) NEUTROPHILS RELATIVE PERCENT (BEAKER) (test 86 % qjra=732) LYMPHOCYTES RELATIVE PERCENT (BEAKER) (test 6 % lgnw=305) MONOCYTES RELATIVE PERCENT (BEAKER) (test 7 % qoaj=274) EOSINOPHILS RELATIVE PERCENT (BEAKER) (test 0 % ukrx=641) BASOPHILS RELATIVE PERCENT (BEAKER) (test 0 % bguv=768) NEUTROPHILS ABSOLUTE COUNT (BEAKER) (test 12.51 K/ L 1.56-6.13 rzhz=969) LYMPHOCYTES ABSOLUTE COUNT (BEAKER) (test 0.94 K/ L 1.18-3.74 ohqb=694) MONOCYTES ABSOLUTE COUNT (BEAKER) (test 1.07 K/ L 0.24-0.36 auje=811) EOSINOPHILS ABSOLUTE COUNT (BEAKER) (test 0.00 K/ L 0.04-0.36 pxhm=662) BASOPHILS ABSOLUTE COUNT (BEAKER) (test 0.02 K/ L 0.01-0.08 lkgv=777) IMMATURE GRANULOCYTES-RELATIVE PERCENT (BEAKER) 1 % 0-1 (test dcqc=5989) [id number] 00:20:00 Test Item Value Reference Range Comments POTASSIUM (BEAKER) (test uhbm=975) 3.5 meq/L 3.5-5.1 [id number] 22:31:00 Test Item Value Reference Range Comments MAGNESIUM (BEAKER) (test zqeh=638) 2.5 mg/dL 1.6-2.6 RAD, CHEST, 1 VIEW, NON [id number] 21:12:00Reason for exam:-> pneumothoraxShould this be performed at the bedside?->YesFINAL REPORT Chest one view. Clinical history: pneumothorax Comparison: Chest radiograph 12/27/2017, 3:24 PM. Technique: A single frontal view of the chest was obtained. Findings/impression:There is a pigtail chest catheter with tip in the left lung base. The cardiomediastinalcontours are stable. There is a small left basilar pneumothorax. There is pneumomediastinum. There are patchy and linear opacities in bilateral lower lobes, left greater than right, which may representatelectasis and/or pneumonia. There is no definite pleural effusion.There is diffuse subcutaneous emphysema and the bilateral lower neck and chest huber.There is gaseous distention of the stomach. Signed: Randall Nevarezort Verified Date/Time: 12/27/2017 21:12 :36 Reading Location: [facility] [id number] CT Body Reading Room RAD, CHEST, 1 VIEW, NON [id number] 16:22:00Reason for exam:->Evaluate for left pneumothoraxShould this be performed at the bedside?->YesFINAL REPORT EXAM: Frontal chest radiograph HISTORY PROVIDED: Evaluate for left pneumothorax COMPARISON: 12/22/2017 IMPRESSION:A pigtail catheter projects over the left lung base.There is a moderate left pneumothorax with up to 3.8 cm of pleural separation. This was reported to the patient's nurse, Josselin at 4:18 PM on 12/27/2017 and she will alert the clinical team. There isextensive subcutaneous emphysema which limits evaluation. A small right pleural effusion is noted and there may be a small left pleural effusion. Bibasilar opacities likely represent atelectasis, although pneumonitis should be excluded clinically. The cardiac silhouette is normal in size. The thoracicaorta is tortuous and demonstrates atherosclerotic calcification. No acute osseous abnormality. Signed: Yenifer Thompsonort Verified Date/ Time: 12/27/2017 16:22:10 Reading Location: [facility] Mammo Reading Room [id number] 15:21:00 Test Item Value Reference Range Comments MAGNESIUM (BEAKER) (test sxhp=357) 1.8 mg/dL 1.6-2.6 BASIC METABOLIC [id number] 15:21:00 Test Item Value Reference Range Comments SODIUM (BEAKER) (test 142 meq/L 136-145 vetw=217) POTASSIUM (BEAKER) (test 3.7 meq/L 3.5-5.1 ylxw=098) CHLORIDE (BEAKER) (test 110 meq/L 98-107 qinu=171) CO2 (BEAKER) (test 24 meq/L 22-29 unjv=413) BLOOD UREA NITROGEN 5 mg/dL 7-21 (BEAKER) (test mgfc=517) CREATININE (BEAKER) (test 0.90 mg/dL 0.57-1.25 gtsm=080) GLUCOSE RANDOM (BEAKER) 160 mg/dL 70-105 (test wfgu=017) CALCIUM (BEAKER) (test 8.5 mg/dL 8.4-10.2 rqat=526) EGFR (BEAKER) (test 62 mL/min/1.73 sq m ESTIMATED GFR IS NOT umnr=3138) ACCURATE CREATININE CLEARANCE IN PREDICTING GLOMERULAR FILTRATION RATE. ESTIMATED GFR IS NOT APPLICABLE FOR DIALYSIS PATIENTS. CBC (HEMOGRAM ONLY)2017-12-27 15:02:00 Test Item Value Reference Range Comments WHITE BLOOD CELL COUNT (BEAKER) (test uuho=412) 16.2 K/ L 3.5-10.5 RED BLOOD CELL COUNT (BEAKER) (test oujc=732) 4.32 M/ L 3.93-5.22 HEMOGLOBIN (BEAKER) (test ukeu=388) 12.9 GM/DL 11.2-15.7 HEMATOCRIT (BEAKER) (test czyl=146) 40.0 % 34.1-44.9 MEAN CORPUSCULAR VOLUME (BEAKER) (test qfzt=085) 92.6 fL 79.4-94.8 MEAN CORPUSCULAR HEMOGLOBIN (BEAKER) (test 29.9 pg 25.6-32.2 fixc=444) MEAN CORPUSCULAR HEMOGLOBIN CONC (BEAKER) (test 32.3 GM/DL 32.2-35.5 gngp=743) RED CELL DISTRIBUTION WIDTH (BEAKER) (test 13.5 % 11.7-14.4 zxbc=624) PLATELET COUNT (BEAKER) (test ayfq=112) 238 K/CU MM 150-450 MEAN PLATELET VOLUME (BEAKER) (test erpc=563) 10.1 fL 9.4-12.3 NUCLEATED RED BLOOD CELLS (BEAKER) (test 0 /100 WBC 0-0 skey=042) FUNGUS CULTURE + [id number] 20:59:00 Test Item Value Reference Range Comments CULTURE (BEAKER) (test No fungus isolated in 28 days meaw=8906) FUNGUS SMEAR (BEAKER) (test No fungi seen zpkh=5232) COMPREHENSIVE METABOLIC [id number] 14:33:00 Test Item Value Reference Range Comments TOTAL PROTEIN (BEAKER) 7.2 gm/dL 6.0-8.3 (test wkgr=893) ALBUMIN (BEAKER) (test 4.2 g/dL 3.5-5.0 dauc=3436) ALKALINE PHOSPHATASE 131 U/L 40-150 (BEAKER) (test nqqk=472) BILIRUBIN TOTAL (BEAKER) 0.6 mg/dL 0.2-1.2 (test iqpv=262) SODIUM (BEAKER) (test 144 meq/L 136-145 ufik=933) POTASSIUM (BEAKER) (test 3.5 meq/L 3.5-5.1 sldd=416) CHLORIDE (BEAKER) (test 104 meq/L 98-107 fqmb=941) CO2 (BEAKER) (test 32 meq/L 22-29 jelv=206) BLOOD UREA NITROGEN 5 mg/dL 7-21 (BEAKER) (test jany=446) CREATININE (BEAKER) (test 0.85 mg/dL 0.57-1.25 rkqp=734) GLUCOSE RANDOM (BEAKER) 94 mg/dL 70-105 (test hlvh=735) CALCIUM (BEAKER) (test 9.7 mg/dL 8.4-10.2 swin=876) AST (SGOT) (BEAKER) (test 27 U/L 5-34 qxgk=282) ALT (SGPT) (BEAKER) (test 21 U/L 6-55 ewbr=676) EGFR (BEAKER) (test 66 mL/min/1.73 sq m ESTIMATED GFR IS NOT zclx=8683) ACCURATE CREATININE CLEARANCE IN PREDICTING GLOMERULAR FILTRATION RATE. ESTIMATED GFR IS NOT APPLICABLE FOR DIALYSIS PATIENTS. [id number] 13:57:00 Test Item Value Reference Range Comments PROTIME (BEAKER) (test mytc=598) 13.6 seconds 11.7-14.7 INR (BEAKER) (test hsvr=252) 1.0 <=5.9 PARTIAL THROMBOPLASTIN TIME (BEAKER) (test 26.9 seconds 22.5-36.0 lsbt=123) RECOMMENDED COUMADIN/WARFARIN INR THERAPY RANGESSTANDARD DOSE: 2.0 - 3.0 Includes: PROPHYLAXIS forvenous thrombosis, systemic embolization; TREATMENT for venous thrombosis and/or pulmonary embolus.HIGH RISK: Target INR is 2.5-3.5 for patients with mechanical heart valves.RAD, CHEST, 2 [id number] 13:47: 00Reason for exam:->diaphragmatic paralsisShould this be performed at the bedside?->NoFINAL REPORT Chest x-ray Clinical History : diaphragmatic paralsis Comparison:February 20, 2015 Views: 2 Chest x-ray:The cardiac and mediastinal silhouettes are not adequately [...] to the prior study there is patchy densityis visualized in the right mid and lower lung zone without evidence of a focal parenchymal opacity nodule. These findings may represent developing pneumonitis and follow-up studies recommended if clinically appropriate. Signed: Beverly Chou MDReport Verified Date/Time: 12/22/2017 13:47:10 Reading Location: [address] Radiology Reading Room CBC W/PLT COUNT & AUTO [id number] 13: 44:00 Test Item Value Reference Range Comments WHITE BLOOD CELL COUNT (BEAKER) (test cyjw=311) 6.5 K/ L 3.5-10.5 RED BLOOD CELL COUNT (BEAKER) (test wphz=484) 4.49 M/ L 3.93-5.22 HEMOGLOBIN (BEAKER) (test unem=010) 13.5 GM/DL 11.2-15.7 HEMATOCRIT (BEAKER) (test uopc=561) 41.4 % 34.1-44.9 MEAN CORPUSCULAR VOLUME (BEAKER) (test rtlj=036) 92.2 fL 79.4-94.8 MEAN CORPUSCULAR HEMOGLOBIN (BEAKER) (test 30.1 pg 25.6-32.2 nvcu=160) MEAN CORPUSCULAR HEMOGLOBIN CONC (BEAKER) (test 32.6 GM/DL 32.2-35.5 kavs=782) RED CELL DISTRIBUTION WIDTH (BEAKER) (test 13.0 % 11.7-14.4 vhfx=320) PLATELET COUNT (BEAKER) (test dcei=045) 231 K/CU MM 150-450 MEAN PLATELET VOLUME (BEAKER) (test xiwe=574) 10.6 fL 9.4-12.3 NUCLEATED RED BLOOD CELLS (BEAKER) (test 0 /100 WBC 0-0 ihan=878) NEUTROPHILS RELATIVE PERCENT (BEAKER) (test 55 % kemf=236) LYMPHOCYTES RELATIVE PERCENT (BEAKER) (test 30 % uglt=810) MONOCYTES RELATIVE PERCENT (BEAKER) (test 9 % ovlz=529) EOSINOPHILS RELATIVE PERCENT (BEAKER) (test 5 % yunu=269) BASOPHILS RELATIVE PERCENT (BEAKER) (test 1 % bkbi=405) NEUTROPHILS ABSOLUTE COUNT (BEAKER) (test 3.55 K/ L 1.56-6.13 vkdk=557) LYMPHOCYTES ABSOLUTE COUNT (BEAKER) (test 1.96 K/ L 1.18-3.74 urhi=870) MONOCYTES ABSOLUTE COUNT (BEAKER) (test 0.61 K/ L 0.24-0.36 vsri=887) EOSINOPHILS ABSOLUTE COUNT (BEAKER) (test 0.31 K/ L 0.04-0.36 eiku=578) BASOPHILS ABSOLUTE COUNT (BEAKER) (test 0.03 K/ L 0.01-0.08 tqsn=109) IMMATURE GRANULOCYTES-RELATIVE PERCENT (BEAKER) 0 % 0-1 (test qlvr=7103) VIRUS [id number] 09:14:00 Test Item Value Reference Range Comments CULTURE (BEAKER) (test klhe=4363) No virus isolated LEGIONELLA [id number] 08:42:00 Test Item Value Reference Range Comments CULTURE (BEAKER) (test No Legionella species isolated xnmo=6770) BRONCHIAL CULTURE + GRAM [id number] 06:04:00 Test Item Value Reference Range Comments CULTURE (BEAKER) (test yxga=4097) No growth GRAM STAIN RESULT (BEAKER) (test 1+ WBCs lxdt=1530) GRAM STAIN RESULT (BEAKER) (test No organisms seen occo=39998) FLOW CYTOMETRY [id number] 12:18:00 Test Item Value Reference Range Comments FLOW CYTOMETRY RESULT POINTER (BEAKER) See Separate Report (test vqry=9164) FLOW CYTOMETRY AP CASE # (BEAKER) (test [id number] iwgv=5216) [id number] 10:33:00Medical Cytology Report Case: [id number] Authorizing Provider: Luis Carlos Florence MD Collected: 11/23/2017 1152 Ordering Location: [facility] Received: 11/23/2017 1426 Pathologist: Aline Morales Specimen: Lung, Left Upper Lobe, in CRR routine cyto LEFT UPPER LOBE LUNG BAL ( CYTOSPINS): - NEGATIVE FOR MALIGNANCY MULTINUCLEATED GIANT CELLS AND INFLAMMATORY CELLS PRESENT Signing Pathologist Direct Phone Line: [phone] signed by Aline Morales on 11/24/2017 at 10:33 [id number], shortness of breath, abnormal CT lung screeningLEFTUPPER LOBE LUNG BAL20 mls in cytorich red; 4 cytospinsCollected: [id number]: [id number]ey Park Hospital, Department of Pathology, [address] [place] [address], [phone] Health/[facility], Department of Pathology, [address] [place] [address], QJVC [id number] 10:21:00Flow Cytometry Report Case: [id number] Authorizing Provider: Luis Carlos Florence MD Collected: 11/23/2017 1206 Ordering Location: [facility] ENDOSCOPY SERVICES Received: 1513 Pathologist: Asaf Cevallos MD Specimen: Other LEFT UPPER LOBE LUNG BRONCHOALVEOLAR LAVAGE FLOW CYTOMETRY: T CELLS SHOW ACD4:CD8 RATIO OF 2.6Electronically signedby Aasf Cevallos, MD on 11/24/2017 at 10:21 [id number] of breathLEFT UPPER LOBE LUNG BALCD3, CD4, CD8, [id number]: 87%Bright CD45+ lymphocytes comprise 55.4% of total cells, and include 97.5% ofCD3+ T cells. T cells are comprised of 71.6% CD4+CD8- and 27.8% CD4-CD8+ subsets.These testswere developed and their performance characteristics determined by [facility]. They have not been cleared or approved by the U.S. Food and Drug Administration. The FDA has determined that such clearance or approval is not necessary. It should not be regarded as investigational or for research. This laboratory is certified under the Clinical Laboratory Improvement Amendments of 1988 ("CLIA") as qualified to perform high-complexity clinical testing.BODY FLUID CELL COUNT WITH [id number] 17:58:00 Test Item Value Reference Range Comments APPEARANCE FLUID (BEAKER) Moderately Cloudy Clear (test kbng=914) COLOR FLUID (BEAKER) Colorless, Straw Red Tinge (test cgsb=673) RBC FLUID (BEAKER) (test 4000 /cu mm <=1 vxga=450) ADJUSTED WBC FLUID 353 /cu mm <=5 (BEAKER) (test oopf=4707) LINING CELLS (BEAKER) 106 /cu mm <=1 (test lodq=9024) NEUTROPHILS FLUID 32 % Diff performed on (BEAKER) (test polh=9340) degenerated WBCs LYMPHS FLUID (BEAKER) 32 % (test urfx=429) MONO/MACROPHAGE FLUID 36 % (BEAKER) (test gxdg=129) EOSINOPHILS FLUID 0 % (BEAKER) (test fxbd=291) BASO FLUID (BEAKER) (test 0 % rpnn=476) CONTAINER BODY FLUID EDTA Tube (BEAKER) (test goal=4452) CYTOLOGY [id number] 16:01:00 Test Item Value Reference Range Comments CYTOLOGY RESULT POINTER (BEAKER) (test See Separate Report uojl=3508)
[2018-08-08] MEDS ORDERED: MAGNE/ALUM HYDROXD 30 ML UCUP ONE (10:00)
[2018-08-08] MEDS ORDERED: LIDOCAINE VISCOUS 2% SOLN 15 ML UDC ONE (10:00)
--- NOTE | 2018-08-08 10:25 | ER ---
Nurse's Notes [facility] Name: Emma Cordova Age: 73 yrs Sex: Female : 1945 Arrival Date: 08/08/2018 Time: 09:29 Bed 13 Private MD: out of town, doctor Diagnosis: Acute pharyngitis Presentation: 08/08 09:37 Presenting complaint: Patient states: seen 1 week ago in ER for pneumonia. Pt reports ss she feels as if the pneumonia is improving, however her sore throat and bilateral ear pain has not improved and now her voice is hoarse. Transition of care: patient was not received from another setting of care. Onset of symptoms is unknown. Risk Assessment: Do you want to hurt yourself or someone else? Patient reports no desire to harm self or others. Initial Sepsis Screen: Does the patient meet any 2 criteria? No. Patient's initial sepsis screen is negative. Does the patient have a suspected source of infection? No. Patient's initial sepsis screen is negative. Care prior to arrival: None. 09:37 Method Of Arrival: Ambulatory ss 09:37 Acuity: HERNÁN 4 ss Historical: - Allergies: 09:39 Atarax; ss 09:39 Benadryl; ss - PMHx: 09:39 Anxiety; Depression; ss - PSHx: 09:39 Diaphragm repair sx; ss - Immunization history:: Adult Immunizations up to date. - Social history:: Smoking status: Patient/guardian denies using tobacco. - Ebola Screening: : Patient denies exposure to infectious person Patient denies travel to an Ebola-affected area in the 21 days before illness onset. Screenin:41 Abuse screen: Denies threats or abuse. Denies injuries from another. Nutritional ph screening: No deficits noted. Tuberculosis screening: No symptoms or risk factors identified. Fall Risk None identified. Assessment: 09:41 General: Appears in no apparent distress. comfortable, well groomed, Behavior is calm, ph cooperative, appropriate for age, Denies fever. Pain: Complains of pain in throat and bilateral ears. Neuro: Level of Consciousness is awake, alert, obeys commands, Oriented to person, place, time, situation, Denies weakness dizziness, headache. Cardiovascular: Capillary refill < 3 seconds in bilateral fingers Patient's skin is warm and dry. Respiratory: Airway is patent Respiratory effort is even, unlabored, Respiratory pattern is regular, symmetrical, Breath sounds are clear bilaterally. GI: No signs and/or symptoms were reported involving the gastrointestinal system. EENT: Throat is reddened Reports pain in left ear and right ear when swallowing. Derm: Skin is intact, is healthy with good turgor, Skin is pink, warm \T\ dry. Musculoskeletal: Circulation, motion, and sensation intact. Range of motion: intact in all extremities. Vital Signs: 09:40 BP 132 / 72; Pulse 88; Resp 18; Temp 98.3; Pulse Ox 96% on R/A; Weight 79.38 kg; Height ph 5 ft. 2 in. (157.48 cm); 10:54 BP 110 / 64; Pulse 81; Resp 18; Temp 98.0; Pulse Ox 96% on R/A; ph 09:40 Body Mass Index 32.01 (79.38 kg, 157.48 cm) ph ED Course: 09:29 Patient arrived in ED. mr 09:29 out of town, doctor is Private Physician. mr 09:33 [facility] kb 09:33 Kp Scott MD is Attending Physician. kb 09:33 Nickie Carballo, JOSHUA is Primary Nurse. ph 09:39 Triage completed. ss 09:39 Arm band placed on right wrist. ss 09:43 Patient has correct armband on for positive identification. Bed in low position. Call ph light in reach. Side rails up X 1. Pulse ox on. NIBP on. Door closed. Noise minimized. Warm blanket given. 10:55 No provider procedures requiring assistance completed. Patient did not have IV access ph during this emergency room visit. Administered Medications: 09:52 Drug: GI Cocktail without - (Maalox Suspension 30 ml, Lidocaine Liquid 2 % 15 ph ml) Route: PO; 10:30 Follow up: Response: No adverse reaction; Pain is decreased ph Outcome: 10:24 Discharge ordered by . kb 10:55 Discharged to home ambulatory. ph 10:55 Condition: good 10:55 Discharge instructions given to patient, Instructed on discharge instructions, follow up and referral plans. Demonstrated understanding of instructions, follow-up care. 10:55 Patient left the ED. ph Signatures: Corrina Thurston FNP-C FNP-Beverly Ruiz mr Sherrie Saenz, RN RN ss Haris, Nickie, RN RN ph
--- NOTE | 2018-08-08 10:25 | EDPHYS ---
Physician Documentation [facility] Name: Emma Cordova Age: 73 yrs Sex: Female : 1945 Arrival Date: 08/08/2018 Time: 09:29 Bed 13 Private MD: out of town, doctor ED Physician Kp Scott HPI: 08/08 10:37 This 73 yrs old Female presents to ER via Ambulatory with complaints of Sore kb Throat, Ear Pain. 10:37 The patient presents with sore throat. The patient describes throat pain as constant. kb Onset: The symptoms/episode began/occurred 3 day(s) ago. Severity of symptoms: At their worst the symptoms were moderate, in the emergency department the symptoms are unchanged. Modifying factors: The symptoms are alleviated by nothing, the symptoms are aggravated by swallowing, Patient's oral intake status: good Denies contact with similarly ill indivduals. Associated signs and symptoms: Pertinent positives: Sore throat. The patient has not experienced similar symptoms in the past. The patient has not recently seen a physician. Historical: - Allergies: 09:39 Atarax; ss 09:39 Benadryl; ss - PMHx: 09:39 Anxiety; Depression; ss - PSHx: 09:39 Diaphragm repair sx; ss - Immunization history:: Adult Immunizations up to date. - Social history:: Smoking status: Patient/guardian denies using tobacco. - Ebola Screening: : Patient denies exposure to infectious person Patient denies travel to an Ebola-affected area in the 21 days before illness onset. ROS: 10:38 Constitutional: Negative for fever, chills, and weight loss, Neck: Negative for injury, kb pain, and swelling, Cardiovascular: Negative for chest pain, palpitations, and edema, Respiratory: Negative for shortness of breath, cough, wheezing, and pleuritic chest pain, Abdomen/GI: Negative for abdominal pain, nausea, vomiting, diarrhea, and constipation, MS/Extremity: Negative for injury and deformity, Skin: Negative for injury, rash, and discoloration, Neuro: Negative for headache, weakness, numbness, tingling, and seizure. 10:38 ENT: Positive for sore throat. Exam: 10:38 Constitutional: This is a well developed, well nourished patient who is awake, alert, kb and in no acute distress. Head/Face: Normocephalic, atraumatic. ENT: Nares patent. No nasal discharge, no septal abnormalities noted. Tympanic membranes are normal and external auditory canals are clear. Oropharynx with no redness, swelling, or masses, exudates, or evidence of obstruction, uvula midline. Mucous membranes moist. Neck: Trachea midline, no thyromegaly or masses palpated, and no cervical lymphadenopathy. Supple, full range of motion without nuchal rigidity, or vertebral point tenderness. No Meningismus. Chest/axilla: Normal chest wall appearance and motion. Nontender with no deformity. No lesions are appreciated. Cardiovascular: Regular rate and rhythm with a normal S1 and S2. No gallops, murmurs, or rubs. Normal PMI, no JVD. No pulse deficits. Respiratory: Lungs have equal breath sounds bilaterally, clear to auscultation and percussion. No rales, rhonchi or wheezes noted. No increased work of breathing, no retractions or nasal flaring. Abdomen/GI: Soft, non-tender, with normal bowel sounds. No distension or tympany. No guarding or rebound. No evidence of tenderness throughout. Skin: Warm, dry with normal turgor. Normal color with no rashes, no lesions, and no evidence of cellulitis. MS/ Extremity: Pulses equal, no cyanosis. Neurovascular intact. Full, normal range of motion. Neuro: Awake and alert, GCS 15, oriented to person, place, time, and situation. Cranial nerves II-XII grossly intact. Motor strength 5/5 in all extremities. Sensory grossly intact. Cerebellar exam normal. Normal gait. Vital Signs: 09:40 BP 132 / 72; Pulse 88; Resp 18; Temp 98.3; Pulse Ox 96% on R/A; Weight 79.38 kg; Height ph 5 ft. 2 in. (157.48 cm); 10:54 BP 110 / 64; Pulse 81; Resp 18; Temp 98.0; Pulse Ox 96% on R/A; ph 09:40 Body Mass Index 32.01 (79.38 kg, 157.48 cm) ph MDM: 09:33 Patient medically screened. kb 10:23 Data reviewed: vital signs, nurses notes. Data interpreted: Pulse oximetry: on room air kb is 96 %. Interpretation: normal. Counseling: I had a detailed discussion with the patient and/or guardian regarding: the historical points, exam findings, and any diagnostic results supporting the discharge/admit diagnosis, lab results, the need for outpatient follow up, a family practitioner, to return to the emergency department if symptoms worsen or persist or if there are any questions or concerns that arise at home. 08/08 09:38 Order name: Strep; Complete Time: 10:06 kb 08/08 10:06 Order name: Throat Culture EDMS Administered Medications: 09:52 Drug: GI Cocktail without - (Maalox Suspension 30 ml, Lidocaine Liquid 2 % 15 ph ml) Route: PO; 10:30 Follow up: Response: No adverse reaction; Pain is decreased ph Disposition: 08/08/18 10:24 Discharged to Home. Impression: Acute pharyngitis. - Condition is Stable. - Discharge Instructions: Pharyngitis, [id number], Sore Throat, [id number]. - Medication Reconciliation Form, Thank You Letter, Antibiotic Education, Prescription Opioid Use form. - Follow up: Emergency Department; When: As needed; Reason: Worsening of condition. Follow up: Private Physician; When: 2 - 3 days; Reason: Recheck today's complaints, Continuance of care, Re-evaluation by your physician. Addendum: 08/10/2018 07:06 Co-signature as Attending Physician, Kp Scott MD. r n Signatures: Dispatcher [employer] EDLA Corrina Thurston, TRACK LAYING EQUIPMENT OPERATOR-C TRACK LAYING EQUIPMENT OPERATOR-Ckb Kp Scott MD MD rn Smirch, Shelby, RN RN Nickie Carballo RN RN ph Corrections: (The following items were deleted from the chart) 08/08 10:55 10:24 08/08/2018 10:24 Discharged to Home. Impression: Acute pharyngitis. Condition is ph Stable. Forms are Medication Reconciliation Form, Thank You Letter, Antibiotic Education, Prescription Opioid Use. Follow up: Emergency Department; When: As needed; Reason: Worsening of condition. Follow up: Private Physician; When: 2 - 3 days; Reason: Recheck today's complaints, Continuance of care, Re-evaluation by your physician. kb
[2018-08-08 11:59] VITALS: O2SAT 96
[2018-08-08 12:01] VITALS: BP 110/64; TEMP 98
== END 2018-08-08 10:55 | disposition home or self-care (01) ==
LOC: ER 09:25
DX: J02.9 Acute pharyngitis, unspecified (principal); F41.9 Anxiety disorder, unspecified; F32.9 Major depressive disorder, single episode, unspecified; Z88.8 Allergy status to other drugs, medicaments and biological substances
CPT/HCPCS: 87070; 87081; 99283

== ENCOUNTER 2021-09-07 21:47 | Observation (INO) | payer OTHER ==
--- OUTSIDE RECORDS SUMMARY | 2021-09-07 21:51 | XMS REPORT | Continuity of Care Document ---
:1945 Author Organization [facility] t Address [address] [place] [address] Care Team Providers Name Role Phone System, Not In Primary Care Physician Sunny Page Attending Clinician Unavailable Aleksey Attending Clinician Unavailable Dennis Attending Clinician Unavailable Kacy SOMERS Attending Clinician Unavailable SILVIO NGUYEN Attending Clinician Unavailable MANOLO Attending Clinician Unavailable DORIS Attending Clinician Unavailable CHAO Attending Clinician Unavailable MD NE GUIDRY Attending Clinician Unavailable Komal Victoria MD Attending Clinician MARY ANN Attending Clinician Unavailable Kyaw GR Attending Clinician NEREIDA POLLARD Attending Clinician Unavailable CLIFTON MCDANIEL Attending Clinician Unavailable MACY PADILLA Attending Clinician Unavailable MD NE GUIDRY Admitting Clinician Unavailable NEREIDA POLLARD Admitting Clinician Unavailable CLIFTON MCDANIEL Admitting Clinician Unavailable MACY PADILLA Admitting Clinician Unavailable Payers Payer Name Policy Type Policy Number Effective Date Expiration Date S ource MEDICARE PLAN PPO [id number] - AETNA MEDICARE PART A [id number] \\T\\ [id number] - MEDICARE AETNA MEDICARE HMO [id number] 2017 POS PPO 00:00:00 Problems Condition Condition Condition Status Onset Resolution Last Treating Co mments Source Name Details Category Date Date Treatment Clinician Date Bilateral Bilateral Disease Active [facility] temporoman temporoman 6-14 Co llege dibular dibular 00:00: of joint pain joint pain 00 Me dicin e 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 Seasonal Seasonal Disease Active [facility] rhinitis [facility]: of 00 Medicin e Otalgia Otalgia Disease Active [facility] 8-20 [place] 00:00: of 00 Medicin e Nasal Nasal Disease Active [facility] valve valve 820 [place] collapse collapse 00:00: of 00 Medicin e 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 [facility] (posterior (posterior 1-09 Co llege capsular capsular 00:00: of opacificat opacificat 00 Me dicin ion) ion) e Nuclear Nuclear Disease Active [facility] senile senile 511 [place] cataract cataract 00:00: of of both of both 00 Medicin eyes eyes e H/O H/O Disease Active [facility] diplopia diplopia 11 Colleg e 00:00: of 00 Medicin e Dry eye Dry eye Disease Active [facility] syndrome syndrome 11 Colleg e 00:00: of 00 Medicin e Dyspnea on Dyspnea on Disease Active [facility] exertion exertion 07 Colleg e 00:00: of 00 Medicin e Anxiety Anxiety Disease Active [facility] 4-07 College 00:00: of 00 Medicin e 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 07 [place] disease disease 00:00: of involving involving 00 Medi [facility] [place] coronary coronary artery of artery of [place] heart without without angina angina pectoris pectoris 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 00:00: of 00 Medicin e Coronary Coronary Disease Active [facility]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 4-07 [facility] disease disease 00:00: of involving involving 00 Medi phillip [place] coronary coronary artery of artery of [place] heart without without angina angina pectoris pectoris Allergies, Adverse Reactions, Alerts Allergy Allergy Status Severity Reaction(s) Onset Inactive Treating Comm ents Source Name Type Date Date Clinician Potato Propensi Active [facility] ty to Vomiting 11-22 potatoes Colleg e adverse 00:00: only of reaction 00 Medicin s to e food POTATO Allergy Active N\\T\\V [facility] 8 00:00: 00 Diphenhy Propensi Active [facility] dramine ty to 5 College adverse 00:00: of reaction 00 Medicin s to e drug DIPHENHY Allergy Active Other [facility] DRAMINE 08-18 00:00: 00 PSEUDOEP Allergy Active Other [facility] HEDRINE 08-18 HCL 00:00: 00 Hydroxyz Propensi Active Other (See [facility] ine Hcl ty to Comments) 08-06 Colleg e adverse 00:00: of reaction 00 Medicin s to e drug HYDROXYZ Allergy Active [facility] INE HCL 08-06 00:00: 00 Hydroxyz Propensi Active [facility] ine ty to 2-29 College adverse 00:00: of reaction 00 Medicin s to e drug Allergy Propensi Active [facility] Relief ty to 2-29 College adverse 00:00: of reaction 00 Medicin s to e drug Pseudoep Propensi Active [facility] hedrine ty to 229 College Hcl adverse 00:00: of reaction 00 Medicin s to e drug atarax Adverse Active Info Not Common Reaction Available [facility] Benadryl Adverse Active Info Not Commo n Reaction Available [facility] Social History Social Habit Start Date Stop Date Quantity Comments Source History of tobacco Cigarette Smoker [facility] use of Medicine Exposure to Not sure [facility] SARS-CoV-2 (event) of Med icine Alcohol intake 2021-07-21 2021-07-21 Current [facility] Col lege 00:00:00 00:00:00 non-drinker of of Medicin e alcohol (finding) Cigarettes smoked 2020-01-18 2020-01-18 [facility] current (pack per 00:00:00 00:00:00 of Medi ) - Reported Tobacco use and 2020-01-18 2020-01-18 Never used [facility] Co llege exposure 00:00:00 00:00:00 of Medicine [birth year] [facility] Co llege 00:00:00 00:00:00 of Medicine Smoking Status Start Date Stop Date Source Ex-smoker 2020-01-18 00:00:00 2020-01-18 00:00:00 [facility] jaspal of Medicine Medications Ordered Filled Start Stop Current Ordering Indication Dosage Frequency Signature Comments Components Source Medication Medication Date Date Medication? Clinician (SIG) Name Name ARTIFICIAL Yes Apply to [facility] TEAR OP 07-22 eye. College 10:25: of 21 Medicin e Atorvastati Yes 20mg Take 20 mg Geoffrey n Calcium -26 by mouth Colleg e (LIPITOR 10:25: daily. of OR) 21 Medicin e Albuterol Yes 1{puff} 1-2 Puffs [facility] Sulfate 108 -26 by College (90 Base) 10:25: Inhalation of MCG/ACT 21 route Medicin AEPB every 4 e hours as needed. Loratadine Yes 1{tbl} Take 1 Tab [facility] 10 MG CAPS - by mouth Colle ge 10:25: daily. of 21 Medicin e Influenza Yes Fluzone [facility] Vac Split - High-Dose Colle ge High-Dose 10:25: [id number] of 0.5 ML ROSIE 21 (PF) 180 Medi phillip mcg/0.5 mL e intramuscu lar syringe TO BE ADMINISTER ED BY PHARMACIST FOR IMMUNIZATI ON alprazolam Yes .5mg Take 0.5 Mel[facility] elle (XANAX) 0.5 4-26 mg by [place] MG tablet 10:25: mouth two of 21 times Medicin daily. e venlafaxine Yes 75mg Take 75 mg [facility] (EFFEXOR) 4-26 by mouth Colleg e 75 MG 10:25: daily. of tablet 21 Medicin e fluticasone 2021- No 2{spray 2 Sprays [facility] (FLONASE) 07-22 } by Each Donte e 50 MCG/ACT 10:25: 00:00 Nostril of nasal spray 03 :00 route Medicin daily. e cycloSPORIN 2021- No 1 drop Melvin elle E 07-22 into College (RESTASIS) 10:24: 00:00 affected of 0.05 % 57 :00 eye Medicin ophthalmic e emulsion Coenzyme 2021- No Take by [facility] or Q10 (CO Q 07-22 mouth. College 10 OR) 10:24: 00:00 of 51 :00 Medicin e Denosumab 2021- No 60mg 60 mg. [facility] (PROLIA) 60 07-21 [place] MG/ML 15:34: 00:00 of injection 10 :00 Medicin e ALPRAZolam No .5mg Take 0.5 [facility] (XANAX OR) 07-21- mg by [place] 15:33: 00:00 mouth of 55 :00 daily. Medicin e benzonatate 2021- No as needed. [facility] (TESSALON) 07-21- College 200 mg 15:33: 00:00 of capsule 55 :00 Medicin e mirtazapine Yes 7.5mg Take 1 [facility] (REMERON) 25 Tablet by Richy ge 7.5 MG 00:00: mouth of tablet 00 nightly. Medicin e venlafaxine 2020-03 No 75mg Take 1 Melvin elle (EFFEXOR) 0-14 -25 Tablet by Benita ege 75 MG 00:00: 00:00 mouth of tablet 00 :00 every Medicin morning. e FLUoxetine 2020- No 40mg Take 40 mg [facility] HCl (PROZAC 10-0712 by mouth Col lege OR) 11:40: 00:00 daily. of 43 :00 Medicin e busPIRone 2020- No 1 tablet Melvin elle (BUSPAR) 15 10-07 as needed Co llege MG tablet 11:40: 00:00 for of 43 :00 anxiety Medicin e venlafaxine Yes 75mg Take 1 [facility] (EFFEXOR-XR 7-12 capsule by Co denny ) 75 MG XR 00:00: mouth of capsule 00 daily. Medicin e ARTIFICIAL Yes Apply to [facility] TEAR OP 04-30 eye. College 11:18: of 54 Medicin e ALPRAZolam Yes .5mg Take 0.5 Melvin elle (XANAX OR) 2-02 mg by College 11:18: mouth of 54 daily. Medicin e Coenzyme Yes Take by [facility] Q10 (CO Q 2 mouth. College 10 OR) 11:18: of 54 Medicin e Atorvastati Yes 20mg Take 20 mg [facility] n Calcium 02 by mouth Colleg e (LIPITOR 11:18: daily. of OR) 54 Medicin e Albuterol Yes 1{puff} 1-2 Puffs [facility] Sulfate 108 04-30 by [place] (90 Base) 11:18: Inhalation of MCG/ACT 54 route Medicin AEPB every 4 e hours as needed. Loratadine Yes 1{tbl} Take 1 Tab [facility] (CLARITIN) 04-30 by mouth Colle ge 10 MG CAPS 11:18: daily. of 54 Medicin e fluticasone Yes 2{spray 2 Sprays [facility] (FLONASE) 04-30 } by Each College 50 MCG/ACT 11:18: Nostril of nasal spray 54 route Medicin daily. e benzonatate Yes as needed. [facility] (TESSALON) 2 [place] 200 mg 11:18: of capsule 54 Medicin e Denosumab Yes 60mg 60 mg. [facility] (PROLIA) 60 04-30 [place] MG/ML 11:18: of injection 54 Medicin e Influenza Yes Fluzone [facility] Vac Split 04-30 High-Dose Colle ge High-Dose 11:18: [id number] of 0.5 ML ROSIE 54 (PF) 180 Medi phillip mcg/0.5 mL e intramuscu lar syringe TO BE ADMINISTER ED BY PHARMACIST FOR IMMUNIZATI ON cycloSPORIN Yes 1 drop [facility] E 2-02 into College (RESTASIS) 11:18: affected of 0.05 % 54 eye Medicin ophthalmic e emulsion Masks MISC 2019-03 Yes [id number] 1U 1 Units [facility] 1-20 daily. College 00:00: of 00 Medicin e Masks MISC 2019-03 Yes [id number] 1U 1 Units [facility] 1-20 daily. College 00:00: of 00 Medicin e benzonatate 2019-03 Yes as needed. [facility] (TESSALON) 0-22 College 200 mg 16:30: of capsule 06 Medicin e Denosumab 2019-03 Yes 60mg 60 mg. [facility] (PROLIA) 60 0-22 [place] MG/ML 16:30: of injection 06 Medicin e Influenza 2019-03 Yes Fluzone [facility] Vac Split 0-22 High-Dose Colle ge High-Dose 16:30: [id number] of 0.5 ML ROSIE 06 (PF) 180 Medi phillip mcg/0.5 mL e intramuscu lar syringe TO BE ADMINISTER ED BY PHARMACIST FOR IMMUNIZATI ON busPIRone 2019-03 Yes 1 tablet [facility] (BUSPAR) 15 0-22 as needed Col lege MG tablet 16:30: for of 06 anxiety Medicin e cycloSPORIN 2019-03 Yes 1 drop [facility] E 0-22 into College (RESTASIS) 16:30: affected of 0.05 % 06 eye Medicin ophthalmic e emulsion Tetrahydroz 2019-03 2020 No Apply to [facility] -Dextran-PE 0-22 10-22 eye. [place] G-Povid 16:22: 00:00 of (VISINE 29 :00 Medicin ADVANCED e RELIEF) 0.05-0.1-1- 1 % SOLN ARTIFICIAL 2019-03 Yes Apply to [facility] TEAR OP 0-22 eye. [place] 16:21: of 19 Medicin e ALPRAZolam 2019-03 Yes .5mg Take 0.5 [facility] (XANAX OR) 0-22 mg by College 16:21: mouth of 19 daily. Medicin e FLUoxetine 2019-03 Yes 40mg Take 40 mg [facility] HCl (PROZAC 0-22 by mouth Benita ege OR) 16:21: daily. of 19 Medicin e Coenzyme 2019-03 Yes Take by [facility] Q10 (CO Q 0-22 mouth. College 10 OR) 16:21: of 19 Medicin e Atorvastati 2019-03 Yes 20mg Take 20 mg [facility] n Calcium 0-22 by mouth Colleg e (LIPITOR 16:21: daily. of OR) 19 Medicin e Albuterol 2019-03 Yes 1{puff} 1-2 Puffs [facility] Sulfate 108 0-22 by [place] (90 Base) 16:21: Inhalation of MCG/ACT 19 route Medicin AEPB every 4 e hours as needed. Loratadine 2019-03 Yes 1{tbl} Take 1 Tab [facility] (CLARITIN) 0-22 by mouth Colle ge 10 MG CAPS 16:21: daily. of 19 Medicin e fluticasone 2019-03 Yes 2{spray 2 Sprays [facility] (FLONASE) 0-22 } by Each College 50 MCG/ACT 16:21: Nostril of nasal spray 19 route Medicin daily. e Specialty 2019-03 2020- No Take by Melvin [facility] Vitamins 0-22 10-22 mouth. College Products 16:20: 00:00 of (ICAPS 58 :00 Medicin LUTEIN-ZEAX e ANTHIN OR) Atorvastati Atorvastati Yes Jazmyn 1 tablet Common n Calcium n Calcium 8-25 [facility] in evening Spirit 00:00: - [facility] 00 [facility] olopatadine 2020- No 1[drp] Place 1 [facility] HCl 5-01 10-22 Drop into College (PATADA) 00:00: 00:00 both eyes of 0.2 % 00 :00 daily as Medicin ophthalmic needed e solution (itching / allergy). Specialty 2018-03 Yes Take by [facility] Vitamins 0-17 mouth. [place] Products 18:13: of (ICAPS 14 Medicin LUTEIN-ZEAX e ANTHIN OR) ARTIFICIAL 2018-03 Yes Apply to [facility] TEAR OP 0-17 eye. College 18:13: of 14 Medicin e ALPRAZolam 2018-03 Yes .5mg Take 0.5 Melvin elle (XANAX OR) 0-17 mg by College 18:13: mouth of 14 daily. Medicin e FLUoxetine 2018-03 Yes 40mg Take 40 mg [facility] HCl (PROZAC 0-17 by mouth Benita ege OR) 18:13: daily. of 14 Medicin e Tetrahydroz 2018-03 Yes Apply to [facility] -Dextran-PE 0-17 eye. College G-Povid 18:13: of (VISINE 14 Medicin ADVANCED e RELIEF) 0.05-0.1-1- 1 % SOLN Coenzyme 2018-03 Yes Take by [facility] Q10 (CO Q 0-17 mouth. College 10 OR) 18:13: of 14 Medicin e Atorvastati 2018-03 Yes 20mg Take 20 mg [facility] n Calcium 0-17 by mouth Colleg e (LIPITOR 18:13: daily. of OR) 14 Medicin e Albuterol 2018-03 Yes 1{puff} 1-2 Puffs [facility] Sulfate 108 0-17 by College (90 Base) 18:13: Inhalation of MCG/ACT 14 route Medicin AEPB every 4 e hours as needed. cycloSPORIN Yes 1[drp] Place 1 [facility] E 3-11 Drop into College (RESTASIS) 00:00: both eyes of 0.05 % 00 two times Medicin ophthalmic daily. e emulsion cycloSPORIN Yes 1[drp] Place 1 [facility] E 3-11 Drop into College (RESTASIS) 00:00: both eyes of 0.05 % 00 two times Medicin ophthalmic daily. e emulsion cycloSPORIN Yes 1[drp] Place 1 [facility] E 3-11 Drop into College (RESTASIS) 00:00: both eyes of 0.05 % 00 two times Medicin ophthalmic daily. e emulsion cycloSPORIN 2021- No 1[drp] Place 1 Geoffrey E 3-11 04-25 Drop into College (RESTASIS) 00:00: 00:00 both eyes o f 0.05 % 00 :00 two times Medicin ophthalmic daily. e emulsion montelukast Yes 10mg Take 1 Tab [facility] (SINGULAIR) 1-29 by mouth [facility] ege 10 MG 00:00: daily. of tablet 00 Medicin e montelukast Yes 10mg Take 1 Tab [facility] (SINGULAIR) 1-29 by mouth [facility] ege 10 MG 00:00: daily. of tablet 00 Medicin e montelukast Yes 10mg Take 1 Tab [facility] (SINGULAIR) 1-29 by mouth [facility] ege 10 MG 00:00: daily. of tablet 00 Medicin e montelukast 2021- No 10mg Take 1 Tab [facility] (SINGULAIR) 04-26 by mouth Col lege 10 MG 00:00: 00:00 daily. of tablet 00 :00 Medicin e cetirizine, Yes [id number] 10mg Take 1 Tab [facility] ZYRTEC, 10-28 by mouth College (ZYRTEC 00:00: every of ALLERGY) 10 00 evening. Medi phillip MG tablet e cetirizine, 2020- No [id number] 10mg Take 1 Tab [facility] ZYRTEC, 10-28 by mouth College (ZYRTEC 00:00: 00:00 every of ALLERGY) 10 00 :00 evening. Medi phillip MG tablet e oxymetazoli Yes 2{spray 2 Sprays Geoffrey ne (QC 10-30 } by Nasal College NASAL 00:00: route two of RELIEF 00 times Medicin SINUS) 0.05 daily. e % nasal spray olopatadine Yes 1[drp] Place 1 [facility] HCl 8-19 Drop into College () 00:00: both eyes of 0.2 % 00 as needed Medicin ophthalmic (Itchy e solution Eyes). olopatadine Yes 1[drp] Place 1 [facility] HCl 8-19 Drop into [place] () 00:00: both eyes of 0.2 % 00 as needed Medicin ophthalmic (Itchy e solution Eyes). olopatadine Yes 1[drp] Place 1 [facility] HCl 8-19 Drop into [place] () 00:00: both eyes of 0.2 % 00 as needed Medicin ophthalmic (Itchy e solution Eyes). olopatadine Yes 1[drp] Place 1 [facility] HCl 8-19 Drop into [place] () 00:00: both eyes of 0.2 % 00 as needed Medicin ophthalmic (Itchy e solution Eyes). Pataday Pataday Yes Jazmyn as Common [facility] directed [facility] Visine Visine Yes Jazmyn 1 drop Common Advanced Advanced [place] into Sp joanne Relief Relief affected - [facility] eye as [facility] QC Nasal QC Nasal Yes Jazmyn not Common Relief Relief Millender defined Spi rit Sinus Sinus - [facility] Artificial Artificial Yes Jazmyn not Co mmon Tear Tear Mill[facility] defined Spirit [facility] Xanax Xanax Yes Jazmyn 1 tablet Common Millender [facility] Prozac Prozac Yes Jazmyn 1 capsule Commo n Millender [facility] BusPIRone BusPIRone Yes Jazmyn 1 tablet Common HCl HCl [facility] as needed Spiri t for - [facility]I anxiety [facility] Albuterol Albuterol Yes Jazmyn 2 puffs as Common Sulfate Sulfate Millender needed Sp joanne [facility] Restasis Restasis Yes Jazmyn 1 drop Comm on Millender into Spirit affected - [facility] eye [facility] Singulair Singulair Yes Jazmyn 1 tablet Common Millender [facility] Prolensa Prolensa Yes Jazmyn 1 drop Comm on Millender into Spirit affected - [facility] eye [facility] GenTeal GenTeal Yes Jazmyn 1 drop as Com mon Millender needed [facility] Claritin Claritin Yes Jazmyn 1 tablet Co mmon Millender [facility] Fluoxetine Fluoxetine Yes Jazmyn 1 capsule [facility] Coenzyme Coenzyme Yes Jazmyn 1 tablet Co mmon Q10 Q10 [facility] Vital Signs Vital Name Observation Time Observation Value Comments Source Systolic blood 2021-07-21 20:34:00 125 mm[Hg] [facility] Medicine Diastolic blood 2021-07-21 20:34:00 72 mm[Hg] [facility] Medicine Heart rate 2021-07-21 20:34:00 96 /min [facility] Respiratory rate 2021-07-21 20:34:00 16 /min [facility] Body weight 2021-07-21 20:34:[address] [facility] BMI 2021-07-21 20:34:00 27.35 kg/m2 [facility] Systolic blood 2020-10-07 15:40:00 126 mm[Hg] [facility] Medicine Diastolic blood 2020-10-07 15:40:00 83 mm[Hg] [facility] of pressure Medicine Heart rate 2020-10-07 15:40:00 118 /min [facility] C ollege of Medicine Respiratory rate 2020-10-07 15:40:00 17 /min [facility] Body weight 2020-10-07 15:40:00 75.887 kg [facility] C ollege of Medicine BMI 2020-10-07 15:40:00 29.64 kg/m2 [facility] C ollege of Medicine Heart rate 2020-01-18 16:29:00 70 /min [facility] C ollege of Medicine Body temperature 2020-01-18 16:29:00 36.67 Christine [facility] Body height 2020-01-18 16:29:00 160 cm [facility] C ollege of Medicine Body weight 2020-01-18 16:29:00 73.483 kg [facility] ollege of Medicine BMI 2020-01-18 16:29:00 28.70 kg/m2 [facility] ollege of Medicine Heart rate 2020-01-18 16:29:00 70 /min [facility] ollege of Medicine Body temperature 2020-01-18 16:29:00 36.67 Christine [facility] Body height 2020-01-18 16:29:00 160 cm [facility] C ollege of Medicine Body weight 2020-01-18 16:29:00 73.483 kg [facility] ollege of Medicine BMI 2020-01-18 16:29:00 28.70 kg/m2 [facility] ollege of Medicine Systolic blood 2019-01-12 18:00:00 122 mm[Hg] [facility] pressure Medicine Diastolic blood 2019-01-12 18:00:00 58 mm[Hg] [facility] of pressure Medicine Heart rate 2019-01-12 18:00:00 61 /min [facility] ollege of Medicine Body temperature 2019-01-12 18:00:00 36.61 Christine [facility] Body height 2019-01-12 18:00:00 160 cm [facility] C ollege of Medicine Body weight 2019-01-12 18:00:00 72.757 kg [facility] ollege of Medicine BMI 2019-01-12 18:00:00 28.41 kg/m2 [facility] Systolic blood 2019-01-12 18:00:00 122 mm[Hg] [facility] pressure Medicine Diastolic blood 2019-01-12 18:00:00 58 mm[Hg] [facility] pressure [facility] Heart rate 2019-01-12 18:00:00 61 /min [facility] Body temperature 2019-01-12 18:00:00 36.61 Christine [facility] Body height 2019-01-12 18:00:[address] [facility] Body weight 2019-01-12 18:00:[address] [facility] BMI 2019-01-12 18:00:00 28.41 kg/m2 [facility] Procedures This patient has no known procedures. Plan of Care Planned Activity Planned Date Details Comments Source Future Scheduled 2021-07-22 Screening for [facility] Col [facility]ge of Test 08:49:16 malignant neoplasm of Medici ne colon (procedure) [code = 786745019] Future Scheduled 2021-07-22 Screening for Geoffrey Col lege of Test 08:49:16 malignant neoplasm of Medici ne breast (procedure) [code = 551443862] Future Scheduled 2021-07-22 TETANUS SHOT (ADULT) [facility] Test 08:49:16 [code = TETANUS SHOT Medicin e (ADULT)] Future Scheduled 2021-07-22 BMI FOLLOW UP PLAN [facility] Test 08:49:16 [code = BMI FOLLOW UP Medici ne PLAN] Future Scheduled 2021-07-22 Hepatitis C screening [facility] Test 08:49:16 (procedure) [code = Medicine [id number]] Future Scheduled 2021-07-22 ZOSTER VACCINE (1 of [facility] Test 08:49:16 2) [code = ZOSTER Medicine VACCINE (1 of 2)] Future Scheduled 2021-07-22 FALL SCREEN [code = [facility] Test 08:49:16 FALL SCREEN] Medicine Future Scheduled 2021-07-22 Screening for [facility] Col lege of Test 08:49:16 osteoporosis Medicine (procedure) [code = [id number]] Future Scheduled 2021-07-22 Pneumococcal 65+ (1 of [facility] of Test 08:49:16 1 - PPSV23) [code = Medicine Pneumococcal 65+ (1 of 1 - PPSV23)] Future Scheduled 2021-07-22 FLU VACCINE > 6 MONTHS [facility] of Test 08:49:16 [code = FLU VACCINE > Medici ne 6 MONTHS] Future Scheduled 2021-07-22 MEDICARE AWV (Initial) [facility] of Test 08:49:16 [code = MEDICARE AWV Medicin e (Initial)] Future Scheduled 2020-10-08 Screening for [facility] Col lege of Test 17:35:43 malignant neoplasm of Medici ne colon (procedure) [code = [id number]] Future Scheduled 2020-10-08 Screening for [facility] Col lege of Test 17:35:43 malignant neoplasm of Medici ne breast (procedure) [code = [id number]] Future Scheduled 2020-10-08 TETANUS SHOT (ADULT) [facility] of Test 17:35:43 [code = TETANUS SHOT Medicin e (ADULT)] Future Scheduled 2020-10-08 BMI FOLLOW UP PLAN [facility] of Test 17:35:43 [code = BMI FOLLOW UP Medici ne PLAN] Future Scheduled 2020-10-08 Hepatitis C screening [facility] of Test 17:35:43 (procedure) [code = Medicine [id number]] Future Scheduled 2020-10-08 ZOSTER VACCINE (1 of [facility] of Test 17:35:43 2) [code = ZOSTER Medicine VACCINE (1 of 2)] Future Scheduled 2020-10-08 Screening for [facility] Col lege of Test 17:35:43 osteoporosis Medicine (procedure) [code = [id number]] Future Scheduled 2020-10-08 PNEUMOVAX >=65 [facility] Co llege of Test 17:35:43 (PPSV23) [code = Medicine PNEUMOVAX >=65 (PPSV23)] Future Scheduled 2020-10-08 MEDICARE AWV (Initial) [facility] of Test 17:35:43 [code = MEDICARE AWV Medicin e (Initial)] Future Scheduled 2020-10-08 FLU VACCINE > 6 MONTHS [facility] of Test 17:35:43 [code = FLU VACCINE > Medici ne 6 MONTHS] Future Scheduled 2020-10-08 FALL SCREEN [code = [facility] College of Test 17:35:43 FALL SCREEN] Medicine Future Scheduled COLON CANCER [facility] ege of Test SCREENING: COLONOSCOPY Medic ine [code = COLON CANCER SCREENING: COLONOSCOPY] Future Scheduled MAMMOGRAM ANNUAL [code [facility] of Test = MAMMOGRAM ANNUAL] Medicine Future Scheduled MEDICARE AWV [code = [facility] of Test MEDICARE AWV] Medicine Future Scheduled TETANUS SHOT (ADULT) [facility] of Test [code = TETANUS SHOT Medicin e (ADULT)] Future Scheduled BMI FOLLOW UP PLAN [facility] of Test [code = BMI FOLLOW UP Medici ne PLAN] Future Scheduled HEPATITIS C [facility] Test [code = HEPATITIS C Medicine SCREENING] Future Scheduled FALL SCREEN [code = [facility] of Test FALL SCREEN] Medicine Future Scheduled PNEUMOVAX >=65 [facility] of Test (PPSV23) [code = Medicine PNEUMOVAX >=65 (PPSV23)] Future Scheduled PREVNAR >= 65 (PCV13) Ba [facility] of Test [code = PREVNAR >= 65 Medici ne (PCV13)] Future Scheduled FLU VACCINE > 6 MONTHS B [facility] of Test [code = FLU VACCINE > Medici ne 6 MONTHS] Future Scheduled COLON CANCER [facility] ege of Test SCREENING: COLONOSCOPY Medic ine [code = COLON CANCER SCREENING: COLONOSCOPY] Future Scheduled MAMMOGRAM ANNUAL [code B [facility] of Test = MAMMOGRAM ANNUAL] Medicine Future Scheduled TETANUS SHOT (ADULT) [facility] of Test [code = TETANUS SHOT Medicin e (ADULT)] Future Scheduled BMI FOLLOW UP PLAN [facility] of Test [code = BMI FOLLOW UP Medici ne PLAN] Future Scheduled HEPATITIS C SCREENING [facility] Test [code = HEPATITIS C Medicine SCREENING] Future Scheduled ZOSTER VACCINE (1 of [facility] of Test 2) [code = ZOSTER Medicine VACCINE (1 of 2)] Future Scheduled OSTEOPOROSIS SCREENING [facility] of Test [code = OSTEOPOROSIS Medicin e SCREENING] Future Scheduled PNEUMOVAX >=65 [facility]lege of Test (PPSV23) [code = Medicine PNEUMOVAX >=65 (PPSV23)] Future Scheduled MEDICARE AWV (Initial) [facility] of Test [code = MEDICARE AWV Medicin e (Initial)] Future Scheduled FLU VACCINE > 6 MONTHS B [facility] of Test [code = FLU VACCINE > Medici ne 6 MONTHS] Future Scheduled FALL SCREEN [code = [facility] of Test FALL SCREEN] Medicine Encounters Start End Encounter Admission Attending Care Care Encounter Source Date/Time Date/Time Type Type Clinicians Facility Department ID 2021-05-22 Outpatient Page, STLMLC STLMLC [id number] Common 08:03:01 [facility] 2021-04-25 Outpatient Page, STLMLC STLMLC [id number] Common 08:26:00 [facility] 2021-04-23 Outpatient Page, STLMLC STLMLC [id number] Common 13:09:18 [facility] [address]676 [facility] 2021-04-23 Outpatient STLMLC STLMLC [id number] Common 13:08:38 05107 [facility] 2021-04-23 Outpatient Ryder, STLMLC STLMLC [id number] Common 12:56:09 Avnee 53072 [facility] 2021-04-23 Outpatient STLMLC STLMLC [id number] Common 12:32:45 21498 [facility] 2021-04-23 Outpatient STLMLC STLMLC [id number] Common 12:25:33 13596 [facility] 2021-04-23 Outpatient Millender, STLMLC STLMLC [id number] Common 11:40:31 Jazmyn 32081 [facility] 2021-04-23 Outpatient Millender, STLMLC STLMLC [id number] Common 11:16:52 Jazmyn 47521 [facility] 2021-04-23 Outpatient Millender, STLMLC STLMLC [id number] Common 11:05:03 Jazmyn 86844 [facility] 2021-04-23 Outpatient Millender, STLMLC STLMLC [id number] Common 11:04:30 Jazmyn 22734 [facility] 2021-04-23 Outpatient Millender, STLMLC STLMLC [id number] Common 11:03:37 Jazmyn 56627 [facility] 2021-04-23 Outpatient Millender, STLMLC STLMLC [id number] Common 11:02:15 Jazmyn 44265 [facility] 2021-08-22 2021-08-22 Outpatient SARA [facility] [id number] [facility] 16:13:33 16:16:25 VESNA Aponte of Medicin e 2021-08-06 2021-08-06 ambulatory STLMLC STLMLC [id number] Common 00:00:00 00:00:00 [facility] 2021-07-28 2021-07-28 ambulatory STLMLC STLMLC [id number] Common 00:00:00 00:00:00 [facility] 2021-07-21 2021-07-21 Office SARA [facility] [id number] [facility] 15:24:49 16:30:25 Visit VESNA Aponte AMBULATOR 350.1.13.21 College Y 0.2.7.2.686 of [id number] Medi phillip 390 e 2021-07-18 2021-07-18 ambulatory STLMLC STLMLC [id number] Common 00:00:00 00:00:00 [facility] 2021-07-15 2021-07-15 ambulatory STLMLC STLMLC [id number] Common 00:00:00 00:00:00 [facility] 2021-06-25 2021-06-25 ambulatory STLMLC STLMLC [id number] Common 00:00:00 00:00:00 [facility] 2021-06-25 2021-06-25 ambulatory STLMLC STLMLC [id number] Common 00:00:00 00:00:00 [facility] 2021-06-23 2021-06-23 ambulatory STLMLC STLMLC [id number] Common 00:00:00 00:00:00 [facility] 2021-06-10 2021-06-10 Outpatient MELINANASIM PEREZ [facility] [id number] [facility] 13:01:38 14:34:23 KRISTEN wei of Medicin e 2021-05-20 2021-05-20 ambulatory STLMLC STLMLC [id number] Common 00:00:00 00:00:00 [facility] 2021-04-23 2021-04-23 ambulatory STLMLC STLMLC [id number] Common 00:00:00 00:00:00 [facility] 2021-03-19 2021-03-19 ambulatory STLMLC STLMLC [id number] Common 00:00:00 00:00:00 [facility] 2021-01-30 2021-01-30 ambulatory STLMLC STLMLC [id number] Common 00:00:00 00:00:00 [facility] 2021-01-14 2021-01-14 Outpatient FRENCHELVIA [facility] [id number] [place] 00:00:00 00:00:[address] 2021-01-13 2021-01-13 Outpatient PETAK, [facility] [id number] [place] 00:00:00 00:00:00 DIANE [address] 2020-12-26 2020-12-26 Outpatient CHAO, [facility] [id number] [place] 00:00:00 00:00:00 YNES [address] 2020-12-24 2020-12-24 Outpatient PETAK, [facility] [id number] [place] 00:00:00 00:00:00 DIANE [address] 2020-12-24 2020-12-24 Outpatient PETAK, [facility] [id number] [place] 00:00:00 00:00:00 DIANE [address] 2020-12-24 2020-12-24 Outpatient CHAO, [facility] [id number] [place] 00:00:00 00:00:00 YNES [address] 2020-11-18 2020-11-18 Outpatient STLMLC STLMLC [id number] Common 00:00:00 00:00:00 [facility] 2020-11-14 2020-11-14 Outpatient STLMLC STLMLC [id number] Common 00:00:00 00:00:00 [facility] 2020-11-14 2020-11-14 Outpatient STLMLC STLMLC [id number] Common 00:00:00 00:00:00 [facility] 2020-10-07 2020-10-07 Office Julien, BCM [id number] [facility] 10:39:15 11:47:56 Visit Julita AMBULATOR 350.1.13.21 College Komal Y 0.2.7.2.[id number] [facility] phillip 390 e 2020-08-27 2020-08-27 [facility] [id number] Common 00:00:00 00:00:00 [facility] 2020-04-30 2020-04-30 Outpatient AIDAN [facility]ESS [facility] [id number] [facility] 00:00:00 00:00:00 PENALOZA 2020-02-23 2020-02-23 Outpatient AIDAN [facility]ESS [facility] [id number] [facility] 00:00:00 00:00:00 PENALOZA 2020-01-18 2020-01-18 Office Kyaw, MANUEL 1.2.840.114 [id number] [facility] 10:44:34 14:48:49 Visit German AMBULATOR 350.1.13.21 College Y 0.2.7.2.[id number] [facility] phillip 810 e 2020-01-18 2020-01-18 Office Kyaw, [facility] 1.2.840.114 [id number] 10:44:34 14:48:49 Visit German AMBULATOR 350.1.13.21 Y 0.2.7.2.686 [id number] 2020-01-18 2020-01-18 Outpatient AIDAN KELLEY [facility] [id number] [facility] 00:00:00 00:00:00 HILLARY 2019-11-21 2019-11-21 [facility] [id number] Common 09:40:00 09:40:00 [facility] 2019-07-20 2019-07-20 Outpatient SLEH [facility] [id number] 1-2 [facility] 00:00:00 00:00:00 [id number] 2019-06-08 2019-06-08 [facility] [id number] Common 08:40:00 08:40:[address] [facility] 2019-05-16 2019-05-16 Outpatient [facility] [id number] Common 09:49:00 09:49:00 t [facility] [address] [facility] 2019-05-01 2019-05-01 Outpatient [facility] [id number] Common 16:55:00 16:55:00 t [facility] [address] [facility] 2019-05-01 2019-05-01 Outpatient [facility] [id number] Common 11:30:00 11:30:00 t [facility] [address] [facility] 2019-03-20 2019-03-20 Outpatient [facility] [id number] [facility] 00:00:00 00:00:00 Eunice Medicin e 2019-01-17 2019-01-17 [facility] [id number] Common 08:40:00 08:40:00 t [facility] [address] [facility] 2019-01-12 2019-01-12 Office Kyaw, [facility] 1.2.840.[id number] [place] [address] 11:14:06 15:02:38 Visit German AMBULATOR 350.1.13.21 College Y 0.2.7.2.[id number] 2019-01-12 2019-01-12 Office [facility], [facility] 1.2.840.114 [id number] 11:14:06 15:02:38 Visit German AMBULATOR 350.1.13.21 Y 0.2.7.2.686 [id number] 2018-12-22 2018-12-22 Out[facility] [id number] Common 16:20:00 16:20:00 t [facility] [address] [facility] 2018-08-12 2018-08-12 Outpatient [facility] [id number] Common 09:00:00 09:00:00 t [facility] [address] [facility] Results Test Description Test Time Test Comments Results Result Comments Source SARS-CoV-2 (COVID-19) RNA [Presence] in Respiratory sp ecimen by 2020-12-24 15:19:53 CHRISTIANO with probe detection Test Item Value Reference Range Interpretation Comme nts SARS-CoV-2 (COVID-19) RNA [Presence] in Respiratory Not detected No t-Detected specimen by CHRISTIANO with probe detection (test code = 39455-5) Whether patient is employed in a healthcare setting (test code = 28261-6) Whether the patient has symptoms related to condition of interest (test code = 18445-5) Patient was hospitalized because of this condition (test code = 77981-8) Whether the patient was admitted to intensive care unit (ICU) for condition of interest (test code = 87554-3) Whether patient resides in a congregate care setting (test code = 28195-2) RAD, CHEST, 2 [id number] 11:05:00Pa and LateralReason for Exam:->S/P plication of diaphragm [facility] 1945 Sex: FFINAL REPORT EXAMINATION: PA and lateral views of the chest. COMPARIS ON: March 16, 2018 CLINICAL HISTORY: Diaphragm plication DISCUSSION: Lines/tubes: None. Lungs: The lungs are hypoinflated with elevated left hemidiaphragm. Pleura: No pleural effusion or pneumothorax. Heart and mediastinum: Rightward tracheal deviation. The left heart border is obscured. Bones and soft tissues: No acute bony abnormalities. Degenerative changes in the thoracic spine IMPRESSION: Volume loss in the left lung with elevated hemidiaphragm Signed: Braeden Edwards MDReport Verified Date/Time: 01/18/2020 11:05:09 Reading Location: [facility] Reading Room [facility] B01.627 El ectronically signed by: Braeden Edwards on 01/18/2020 11:05 AMCT, CHEST, WITHOUT IV [id number] 14:14:00Addendum BeginsREPORT STATUS:A Indication: Shortness of breath Signed: Angela Logan MDReport Verified Date/Time: 03/16/2018 14:14:34 Reading Location: [facility] Reading Room B01.627Addendum EndsFINAL REPORT EXAM: CT Chest WITHOUT contrast INDICATION: r94.2,r93.89,r05 COMPARISON: No prior CT for comparison TECHNIQUE: The Chest was scanned utilizing a multidetector helical scanner without the use of IV contrast. Coronal and sagittal reformationswere obtained. High-resolution technique. IV CONTRAST: None COMPLICATIONS:None RADIATION DOSE: Total DLP: 316 mGy*cm Estimated effective dose: (DLP x 0.015 x size factor) mSv CTDIvol has been reviewed. It is below the limits set by the Radiation Protocol Committee (RPC). Appropriate CT dose reduction techniques were utilized. FINDINGS: Lines and Tubes: None. Lower Neck: No acute findings. Heart and Great Vessels: The aorta and main pulmonary artery measure 34and 24 mm. respectively. No pericardial effusion. No [...] no significant subpleural reticulation or honeycombing identified. Upperabdomen: Decreased attenuation of the liver consistent with [...] not excluded. 2.Linear and groundglass opacities in themedial aspect of the right lower lobe predominantly adjacent to prominent osteophytes, statisticallybenign friction phenomenon. 3.Hepatic steatosis. Signed: Angela Logan MDReport Verified Date/Time:03/16/2018 14:06:33 Reading Location: [facility] Reading Room [address] [place] [address] U/S, [id number] 14:02:00S/p left hemidiaphragm plication on 12/27/2017. Left pleural effusion noted on post-op xray.Laterality?- >LeftReason for Exam:->left pleural effusionFINAL REPORT PROCEDURE: Ultrasound-guided thoracentesis INDICATION: 72-year-old woman with left pleural effusion. DESCRIPTION: After obtaining informed written consent, ultrasound scan showed pleural effusion on the left. The overlying skin was prepped and draped in the usual, sterile fashion and local 1% lidocaine anesthesia was administered. A 4 [place] catheter was advanced into the pleural cavity and 400 cc of serosanguineous fluid was removed. The catheter was removed without immediate complication. Samples were sent to the lab for storage. IMPRESSION:Uncomplicated ultrasound-guided left thoracentesis with 400 cc fluid removed. Signed: Aden Love MDReport Verified Date/Time: 01/18/2018 14:02:44 Reading Location: [facility] P006 Ultrasound Reading Room Electronicall y signed by: ADEN LOVE MD on 01/18/2018 02:02 PMRAD, CHEST, 1 VIEW, NON [id number] 12:46:00Reason for exam:->s/p Thoracentesispt. in u/s #3Reason for exam:->LEFTShould this be performedat the bedside?->YesFINAL REPORT Chest one view. Clinical history: s/p ThoracentesisLEFT Comparison: December 30, 2017 Discussion: A frontal chest is provided. Cardiomediastinal contours are unchanged. There is left basilar atelectasis or consolidation, probable small residual left effusion. No pn eumothorax. No evidence of gina pulmonary edema. Right lung is grossly clear. Signed: Priti Gomezeport Verified Date/Time: 01/18/2018 12:46:35 Reading Location: [facility] B1 C013W Consult Reading Room [id number] 10:04:00 Test Item Value Reference Range Interpretation Comments PROTIME (BEAKER) (test code = 15.1 seconds 11.7-14.7 H 759) INR (BEAKER) (test code = 370) 1.2 <=5.9 PARTIAL THROMBOPLASTIN TIME 27.0 seconds 22.5-36.0 (BEAKER) (test code = 760) RECOMMENDED COUMADIN/WARFARIN INR THERAPY RANGESSTANDARD DOSE: 2.0 - 3.0 Includes: PROPHYLAXIS forvenous thrombosis, systemic embolization; TREATMENT for venous thrombosis and/or pulmonary embolus.HIGH RISK: Target INR is 2.5-3.5 for patients with mechanical heart valves.PLATELET [id number] 09:44:00 Test Item Value Reference Range Interpretation Comments PLATELET COUNT (BEAKER) (test 254 K/CU MM 150-450 code = 756) AFB CULTURE + [id number] 16:58:00 Test Item Value Reference Range Interpretation Comments CULTURE (BEAKER) (test No acid-fast bacilli code = 1095) isolated in 42 days AFB SMEAR (BEAKER) No acid fast bacilli (test code = 994) seen RAD, CHEST, 1 VIEW, NON [id number] 16:14:00Reason for exam:->s/p chest tube removalShould this be performed at the bedside?->YesFINAL REPORT Chest one view INDICATION: Chest tube removal COMPARISON: 12/30/2017 IMPRESSION: The small left pneumothorax is [...] small right pleural effusion is suspected. Signed: Priya Cesar MDReport Verified Date/Time: 12/30/2017 16:14:56Reading Location: [facility] C013W Consult Reading Room RAD, CHEST, 1 VIEW, NON DEPT 2017-12-30 07:19:00Reason for exam:->evaluate for left pneumothoraxShould this [...] right pleural effusion may be present. Signed: Priya Cesar MDReport Verified Date/Time: 12/30/2017 07:19:06 Reading Location: [facility] Radiology Reading Room [id number] 04:54:00 Test Item Value Reference Range Interpretation Comments MAGNESIUM (BEAKER) (test code = 2.0 mg/dL 1.6-2.6 627) BASIC METABOLIC [id number] 04:54:00 Test Item Value Reference Range Interpretation Comments SODIUM (BEAKER) 138 meq/L 136-145 (test code = 381) POTASSIUM (BEAKER) 3.2 meq/L 3.5-5.1 L (test code = 379) CHLORIDE (BEAKER) 102 meq/L 98-107 (test code = 382) CO2 (BEAKER) (test 30 meq/L 22-29 H code = 355) BLOOD UREA NITROGEN 6 mg/dL 7-21 L (BEAKER) (test code = 354) CREATININE (BEAKER) 0.67 mg/dL 0.57-1.25 (test code = 358) GLUCOSE RANDOM 113 mg/dL 70-105 H (BEAKER) (test code = 652) CALCIUM (BEAKER) 8.7 mg/dL 8.4-10.2 (test code = 697) EGFR (BEAKER) (test 87 mL/min/1.73 ESTIMA ISELA GFR IS code = 1092) sq m NOT ACCURATE CREATININE CLEARANCE IN PREDICTING GLOMERULAR FILTRATION RATE . ESTIMATED GFR I S NOT APPLICABLE FOR DIALYSIS PATIEN TS. CBC W/PLT COUNT & AUTO [id number] 04:40:00 Test Item Value Reference Range Interpretation Comments WHITE BLOOD CELL COUNT (BEAKER) 9.7 K/ L 3.5-10.5 (test code = 775) RED BLOOD CELL COUNT (BEAKER) 3.89 M/ L 3.93-5.22 L (test code = 761) HEMOGLOBIN (BEAKER) (test code = 11.9 GM/DL 11.2-15.7 410) HEMATOCRIT (BEAKER) (test code = 35.4 % 34.1-44.9 411) MEAN CORPUSCULAR VOLUME (BEAKER) 91.0 fL 79.4-94.8 (test code = 753) MEAN CORPUSCULAR HEMOGLOBIN 30.6 pg 25.6-32.2 (BEAKER) (test code = 751) MEAN CORPUSCULAR HEMOGLOBIN CONC 33.6 GM/DL 32.2-35.5 (BEAKER) (test code = 752) RED CELL DISTRIBUTION WIDTH 13.6 % 11.7-14.4 (BEAKER) (test code = 412) PLATELET COUNT (BEAKER) (test 199 K/CU MM 150-450 code = 756) MEAN PLATELET VOLUME (BEAKER) 11.1 fL 9.4-12.3 (test code = 754) NUCLEATED RED BLOOD CELLS 0 /100 WBC 0-0 (BEAKER) (test code = 413) NEUTROPHILS RELATIVE PERCENT 68 % (BEAKER) (test code = 429) LYMPHOCYTES RELATIVE PERCENT 19 % (BEAKER) (test code = 430) MONOCYTES RELATIVE PERCENT 8 % (BEAKER) (test code = 431) EOSINOPHILS RELATIVE PERCENT 4 % (BEAKER) (test code = 432) BASOPHILS RELATIVE PERCENT 0 % (BEAKER) (test code = 437) NEUTROPHILS ABSOLUTE COUNT 6.61 K/ L 1.56-6.13 H (BEAKER) (test code = 670) LYMPHOCYTES ABSOLUTE COUNT 1.86 K/ L 1.18-3.74 (BEAKER) (test code = 414) MONOCYTES ABSOLUTE COUNT (BEAKER) 0.81 K/ L 0.24-0.36 H (test code = 415) EOSINOPHILS ABSOLUTE COUNT 0.36 K/ L 0.04-0.36 (BEAKER) (test code = 416) BASOPHILS ABSOLUTE COUNT (BEAKER) 0.01 K/ L 0.01-0.08 (test code = 417) IMMATURE GRANULOCYTES-RELATIVE 1 % 0-1 PERCENT (BEAKER) (test code = 2801) RAD, CHEST, 1 VIEW, NON [id number] 08:09:00Reason for exam:->evaluate for left pneumothoraxShould this [...] atelectasis. Pneumonitis should be excluded clinically. Signed: Priya Cesareport Verified Date/Time: 12/29/2017 08:09:18 Reading Location: [facility] Radiology Reading Room [id number] 07:06:00 Test Item Value Reference Range Interpretation Comments MAGNESIUM (BEAKER) (test code = 2.0 mg/dL 1.6-2.6 627) BASIC METABOLIC [id number] 07:06:00 Test Item Value Reference Range Interpretation Comments SODIUM (BEAKER) 137 meq/L 136-145 (test code = 381) POTASSIUM (BEAKER) 3.5 meq/L 3.5-5.1 (test code = 379) CHLORIDE (BEAKER) 104 meq/L 98-107 (test code = 382) CO2 (BEAKER) (test 25 meq/L 22-29 code = 355) BLOOD UREA NITROGEN 5 mg/dL 7-21 L (BEAKER) (test code = 354) CREATININE (BEAKER) 0.70 mg/dL 0.57-1.25 (test code = 358) GLUCOSE RANDOM 123 mg/dL 70-105 H (BEAKER) (test code = 652) CALCIUM (BEAKER) 9.1 mg/dL 8.4-10.2 (test code = 697) EGFR (BEAKER) (test 82 mL/min/1.73 ESTIMA ISELA GFR IS code = 1092) sq m NOT ACCURATE CREATININE CLEARANCE IN PREDICTING GLOMERULAR FILTRATION RATE . ESTIMATED GFR I S NOT APPLICABLE FOR DIALYSIS PATIEN TS. CBC W/PLT COUNT & AUTO [id number] 06:43:00 Test Item Value Reference Range Interpretation Comments WHITE BLOOD CELL COUNT (BEAKER) 15.5 K/ L 3.5-10.5 H (test code = 775) RED BLOOD CELL COUNT (BEAKER) 4.19 M/ L 3.93-5.22 (test code = 761) HEMOGLOBIN (BEAKER) (test code = 12.7 GM/DL 11.2-15.7 410) HEMATOCRIT (BEAKER) (test code = 38.6 % 34.1-44.9 411) MEAN CORPUSCULAR VOLUME (BEAKER) 92.1 fL 79.4-94.8 (test code = 753) MEAN CORPUSCULAR HEMOGLOBIN 30.3 pg 25.6-32.2 (BEAKER) (test code = 751) MEAN CORPUSCULAR HEMOGLOBIN CONC 32.9 GM/DL 32.2-35.5 (BEAKER) (test code = 752) RED CELL DISTRIBUTION WIDTH 13.8 % 11.7-14.4 (BEAKER) (test code = 412) PLATELET COUNT (BEAKER) (test 223 K/CU MM 150-450 code = 756) MEAN PLATELET VOLUME (BEAKER) 11.2 fL 9.4-12.3 (test code = 754) NUCLEATED RED BLOOD CELLS 0 /100 WBC 0-0 (BEAKER) (test code = 413) NEUTROPHILS RELATIVE PERCENT 79 % (BEAKER) (test code = 429) LYMPHOCYTES RELATIVE PERCENT 11 % (BEAKER) (test code = 430) MONOCYTES RELATIVE PERCENT 8 % (BEAKER) (test code = 431) EOSINOPHILS RELATIVE PERCENT 1 % (BEAKER) (test code = 432) BASOPHILS RELATIVE PERCENT 0 % (BEAKER) (test code = 437) NEUTROPHILS ABSOLUTE COUNT 12.20 K/ L 1.56-6.13 H (BEAKER) (test code = 670) LYMPHOCYTES ABSOLUTE COUNT 1.77 K/ L 1.18-3.74 (BEAKER) (test code = 414) MONOCYTES ABSOLUTE COUNT (BEAKER) 1.18 K/ L 0.24-0.36 H (test code = 415) EOSINOPHILS ABSOLUTE COUNT 0.20 K/ L 0.04-0.36 (BEAKER) (test code = 416) BASOPHILS ABSOLUTE COUNT (BEAKER) 0.04 K/ L 0.01-0.08 (test code = 417) IMMATURE GRANULOCYTES-RELATIVE 1 % 0-1 PERCENT (BEAKER) (test code = 2801) RAD, CHEST, 1 VIEW, NON [id number] 07:08:00Reason for exam:->line placement Should this be performed at the bedside?->YesFINAL REPORT Chest one view. Clinical history: line placement Comparison: [facility] radiograph 12/27/2017, 8:48 AM. Technique: A single [...] huber and lower neck. Signed: Randall Nevarez MDReport Verified Date/Time: 12/28/2017 07:08:18 Reading Location: [address] Body Reading Room [id number] 05:04:00 Test Item Value Reference Range Interpretation Comments MAGNESIUM (BEAKER) (test code = 2.6 mg/dL 1.6-2.6 627) BASIC METABOLIC [id number] 05:04:00 Test Item Value Reference Range Interpretation Comments SODIUM (BEAKER) 138 meq/L 136-145 (test code = 381) POTASSIUM (BEAKER) 4.0 meq/L 3.5-5.1 (test code = 379) CHLORIDE (BEAKER) 109 meq/L 98-107 H (test code = 382) CO2 (BEAKER) (test 24 meq/L 22-29 code = 355) BLOOD UREA NITROGEN 5 mg/dL 7-21 L (BEAKER) (test code = 354) CREATININE (BEAKER) 0.73 mg/dL 0.57-1.25 (test code = 358) GLUCOSE RANDOM 120 mg/dL 70-105 H (BEAKER) (test code = 652) CALCIUM (BEAKER) 8.4 mg/dL 8.4-10.2 (test code = 697) EGFR (BEAKER) (test 79 mL/min/1.73 ESTIMA ISELA GFR IS code = 1092) sq m NOT ACCURATE CREATININE CLEARANCE IN PREDICTING GLOMERULAR FILTRATION RATE . ESTIMATED GFR I S NOT APPLICABLE FOR DIALYSIS PATIEN TS. CBC W/PLT COUNT & AUTO [id number] 04:51:00 Test Item Value Reference Range Interpretation Comments WHITE BLOOD CELL COUNT (BEAKER) 14.6 K/ L 3.5-10.5 H (test code = 775) RED BLOOD CELL COUNT (BEAKER) 3.86 M/ L 3.93-5.22 L (test code = 761) HEMOGLOBIN (BEAKER) (test code = 11.6 GM/DL 11.2-15.7 410) HEMATOCRIT (BEAKER) (test code = 36.3 % 34.1-44.9 411) MEAN CORPUSCULAR VOLUME (BEAKER) 94.0 fL 79.4-94.8 (test code = 753) MEAN CORPUSCULAR HEMOGLOBIN 30.1 pg 25.6-32.2 (BEAKER) (test code = 751) MEAN CORPUSCULAR HEMOGLOBIN CONC 32.0 GM/DL 32.2-35.5 L (BEAKER) (test code = 752) RED CELL DISTRIBUTION WIDTH 13.7 % 11.7-14.4 (BEAKER) (test code = 412) PLATELET COUNT (BEAKER) (test 194 K/CU MM 150-450 code = 756) MEAN PLATELET VOLUME (BEAKER) 10.7 fL 9.4-12.3 (test code = 754) NUCLEATED RED BLOOD CELLS 0 /100 WBC 0-0 (BEAKER) (test code = 413) NEUTROPHILS RELATIVE PERCENT 86 % (BEAKER) (test code = 429) LYMPHOCYTES RELATIVE PERCENT 6 % (BEAKER) (test code = 430) MONOCYTES RELATIVE PERCENT 7 % (BEAKER) (test code = 431) EOSINOPHILS RELATIVE PERCENT 0 % (BEAKER) (test code = 432) BASOPHILS RELATIVE PERCENT 0 % (BEAKER) (test code = 437) NEUTROPHILS ABSOLUTE COUNT 12.51 K/ L 1.56-6.13 H (BEAKER) (test code = 670) LYMPHOCYTES ABSOLUTE COUNT 0.94 K/ L 1.18-3.74 L (BEAKER) (test code = 414) MONOCYTES ABSOLUTE COUNT (BEAKER) 1.07 K/ L 0.24-0.36 H (test code = 415) EOSINOPHILS ABSOLUTE COUNT 0.00 K/ L 0.04-0.36 L (BEAKER) (test code = 416) BASOPHILS ABSOLUTE COUNT (BEAKER) 0.02 K/ L 0.01-0.08 (test code = 417) IMMATURE GRANULOCYTES-RELATIVE 1 % 0-1 PERCENT (BEAKER) (test code = 2801) [id number] 00:20:00 Test Item Value Reference Range Interpretation Comments POTASSIUM (BEAKER) (test code = 3.5 meq/L 3.5-5.1 379) [id number] 22:31:00 Test Item Value Reference Range Interpretation Comments MAGNESIUM (BEAKER) (test code = 2.5 mg/dL 1.6-2.6 627) RAD, CHEST, 1 VIEW, NON [id number] 21:12:00Reason for exam:- >pneumothoraxShould this be performed at the bedside?->YesFINAL REPORT [...] gaseous distention of the stomach. Signed: Randall Nevarez MDReport Verified Date/Time: 12/27/2017 21:12:36 Reading Location: [facility] [id number] CT Body Reading Room RAD, CHEST, 1 VIEW, NON DEPT 2017-12-27 16:22:00Reason for exam:->Evaluate for left pneumothoraxShould this [...] calcification. No acute osseous abnormality. Signed: Yenifer Thompson MDReport Verified Date/Time: 12/27/2017 16:22:10 Reading Location: [facility] Mammo Reading Room [id number] 15:21:00 Test Item Value Reference Range Interpretation Comments MAGNESIUM (BEAKER) (test code = 1.8 mg/dL 1.6-2.6 627) BASIC METABOLIC [id number] 15:21:00 Test Item Value Reference Range Interpretation Comments SODIUM (BEAKER) 142 meq/L 136-145 (test code = 381) POTASSIUM (BEAKER) 3.7 meq/L 3.5-5.1 (test code = 379) CHLORIDE (BEAKER) 110 meq/L 98-107 H (test code = 382) CO2 (BEAKER) (test 24 meq/L 22-29 code = 355) BLOOD UREA NITROGEN 5 mg/dL 7-21 L (BEAKER) (test code = 354) CREATININE (BEAKER) 0.90 mg/dL 0.57-1.25 (test code = 358) GLUCOSE RANDOM 160 mg/dL 70-105 H (BEAKER) (test code = 652) CALCIUM (BEAKER) 8.5 mg/dL 8.4-10.2 (test code = 697) EGFR (BEAKER) (test 62 mL/min/1.73 ESTIMA ISELA GFR IS code = 1092) sq m NOT ACCURATE CREATININE CLEARANCE IN PREDICTING GLOMERULAR FILTRATION RATE . ESTIMATED GFR I S NOT APPLICABLE FOR DIALYSIS PATIEN TS. CBC (HEMOGRAM ONLY)2017-12-27 15:02:00 Test Item Value Reference Range Interpretation Comments WHITE BLOOD CELL COUNT (BEAKER) 16.2 K/ L 3.5-10.5 H (test code = 775) RED BLOOD CELL COUNT (BEAKER) 4.32 M/ L 3.93-5.22 (test code = 761) HEMOGLOBIN (BEAKER) (test code = 12.9 GM/DL 11.2-15.7 410) HEMATOCRIT (BEAKER) (test code = 40.0 % 34.1-44.9 411) MEAN CORPUSCULAR VOLUME (BEAKER) 92.6 fL 79.4-94.8 (test code = 753) MEAN CORPUSCULAR HEMOGLOBIN 29.9 pg 25.6-32.2 (BEAKER) (test code = 751) MEAN CORPUSCULAR HEMOGLOBIN CONC 32.3 GM/DL 32.2-35.5 (BEAKER) (test code = 752) RED CELL DISTRIBUTION WIDTH 13.5 % 11.7-14.4 (BEAKER) (test code = 412) PLATELET COUNT (BEAKER) (test 238 K/CU MM 150-450 code = 756) MEAN PLATELET VOLUME (BEAKER) 10.1 fL 9.4-12.3 (test code = 754) NUCLEATED RED BLOOD CELLS 0 /100 WBC 0-0 (BEAKER) (test code = 413) FUNGUS CULTURE + [id number] 20:59:00 Test Item Value Reference Range Interpretation Comments CULTURE (BEAKER) (test No fungus isolated in code = 1095) 28 days FUNGUS SMEAR (BEAKER) No fungi seen (test code = 1406) COMPREHENSIVE METABOLIC [id number] 14:33:00 Test Item Value Reference Range Interpretation Comments TOTAL PROTEIN 7.2 gm/dL 6.0-8.3 (BEAKER) (test code = 770) ALBUMIN (BEAKER) 4.2 g/dL 3.5-5.0 (test code = 1145) ALKALINE PHOSPHATASE 131 U/L 40-150 (BEAKER) (test code = 346) BILIRUBIN TOTAL 0.6 mg/dL 0.2-1.2 (BEAKER) (test code = 377) SODIUM (BEAKER) (test 144 meq/L 136-145 code = 381) POTASSIUM (BEAKER) 3.5 meq/L 3.5-5.1 (test code = 379) CHLORIDE (BEAKER) 104 meq/L 98-107 (test code = 382) CO2 (BEAKER) (test 32 meq/L 22-29 H code = 355) BLOOD UREA NITROGEN 5 mg/dL 7-21 L (BEAKER) (test code = 354) CREATININE (BEAKER) 0.85 mg/dL 0.57-1.25 (test code = 358) GLUCOSE RANDOM 94 mg/dL 70-105 (BEAKER) (test code = 652) CALCIUM (BEAKER) 9.7 mg/dL 8.4-10.2 (test code = 697) AST (SGOT) (BEAKER) 27 U/L 5-34 (test code = 353) ALT (SGPT) (BEAKER) 21 U/L 6-55 (test code = 347) EGFR (BEAKER) (test 66 mL/min/1.73 ESTIMA ISELA GFR IS code = 1092) sq m NOT ACCURATE CREATININE CLEARANCE IN PREDICTING GLOMERULAR FILTRATION RATE . ESTIMATED GFR I S NOT APPLICABLE FOR DIALYSIS PATIEN TS. [id number] 13:57:00 Test Item Value Reference Range Interpretation Comments PROTIME (BEAKER) (test code = 13.6 seconds 11.7-14.7 759) INR (BEAKER) (test code = 370) 1.0 <=5.9 PARTIAL THROMBOPLASTIN TIME 26.9 seconds 22.5-36.0 (BEAKER) (test code = 760) RECOMMENDED COUMADIN/WARFARIN INR THERAPY RANGESSTANDARD DOSE: 2.0 - 3.0 Includes: PROPHYLAXIS forvenous thrombosis, systemic embolization; TREATMENT for venous thrombosis and/or pulmonary embolus.HIGH RISK: Target INR is 2.5-3.5 for patients with mechanical heart valves.RAD, CHEST, 2 [id number] 13:47:00 Reason for exam:->diaphragmatic paralsisShould this be performed at the bedside?->NoFINAL REPORT Chest x-ray Clinical History: diaphragmatic paralsis Comparison:February 20, 2015 Views: 2 [...] These findings may represent developing pneumonitis and follow- up studies recommended if clinically appropriate. Signed: Beverly Choueport Verified Date/Time: 12/22/2017 13:47:10 Reading Location: [address] Radiology Reading Room CBC W/PLT COUNT & AUTO [id number] 13:44:00 Test Item Value Reference Range Interpretation Comments WHITE BLOOD CELL COUNT (BEAKER) 6.5 K/ L 3.5-10.5 (test code = 775) RED BLOOD CELL COUNT (BEAKER) 4.49 M/ L 3.93-5.22 (test code = 761) HEMOGLOBIN (BEAKER) (test code = 13.5 GM/DL 11.2-15.7 410) HEMATOCRIT (BEAKER) (test code = 41.4 % 34.1-44.9 411) MEAN CORPUSCULAR VOLUME (BEAKER) 92.2 fL 79.4-94.8 (test code = 753) MEAN CORPUSCULAR HEMOGLOBIN 30.1 pg 25.6-32.2 (BEAKER) (test code = 751) MEAN CORPUSCULAR HEMOGLOBIN CONC 32.6 GM/DL 32.2-35.5 (BEAKER) (test code = 752) RED CELL DISTRIBUTION WIDTH 13.0 % 11.7-14.4 (BEAKER) (test code = 412) PLATELET COUNT (BEAKER) (test 231 K/CU MM 150-450 code = 756) MEAN PLATELET VOLUME (BEAKER) 10.6 fL 9.4-12.3 (test code = 754) NUCLEATED RED BLOOD CELLS 0 /100 WBC 0-0 (BEAKER) (test code = 413) NEUTROPHILS RELATIVE PERCENT 55 % (BEAKER) (test code = 429) LYMPHOCYTES RELATIVE PERCENT 30 % (BEAKER) (test code = 430) MONOCYTES RELATIVE PERCENT 9 % (BEAKER) (test code = 431) EOSINOPHILS RELATIVE PERCENT 5 % (BEAKER) (test code = 432) BASOPHILS RELATIVE PERCENT 1 % (BEAKER) (test code = 437) NEUTROPHILS ABSOLUTE COUNT 3.55 K/ L 1.56-6.13 (BEAKER) (test code = 670) LYMPHOCYTES ABSOLUTE COUNT 1.96 K/ L 1.18-3.74 (BEAKER) (test code = 414) MONOCYTES ABSOLUTE COUNT (BEAKER) 0.61 K/ L 0.24-0.36 H (test code = 415) EOSINOPHILS ABSOLUTE COUNT 0.31 K/ L 0.04-0.36 (BEAKER) (test code = 416) BASOPHILS ABSOLUTE COUNT (BEAKER) 0.03 K/ L 0.01-0.08 (test code = 417) IMMATURE GRANULOCYTES-RELATIVE 0 % 0-1 PERCENT (BEAKER) (test code = 2801) VIRUS [id number] 09:14:00 Test Item Value Reference Range Interpretation Comments CULTURE (BEAKER) (test code No virus isolated = 1095) LEGIONELLA [id number] 08:42:00 Test Item Value Reference Range Interpretation Comments CULTURE (BEAKER) No Legionella species (test code = 1095) isolated BRONCHIAL CULTURE + GRAM [id number] 06:04:00 Test Item Value Reference Range Interpretation Comments CULTURE (BEAKER) (test code No growth = 1095) GRAM STAIN RESULT (BEAKER) 1+ WBCs (test code = 1123) GRAM STAIN RESULT (BEAKER) No organisms seen (test code = 91285) FLOW CYTOMETRY [id number] 12:18:00 Test Item Value Reference Range Interpretation Comments FLOW CYTOMETRY RESULT See Separate Report POINTER (HEVER) (test code = 2758) FLOW CYTOMETRY AP CASE # [id number] (HEVER) (test code = 2759) [id number] 10:33:00Medical Cytology Report Case: [id number] Authorizing Provider: Josefa Padilla MD Collected: 11/23/2017 1152 Ordering Location: [facility] Received: 11/23/2017 1426 Pathologist: Aline Morales Specimen: Lung, Left Upper Lobe, in CRR routine cyto LEFT UPPER LOBE LUNG BAL (CYTOSPINS): - NEGATIVE FOR MALIGNANCY MULTINUCLEATED GIANT CELLS AND INFLAMMATORY CE LLS PRESENT Signing Pathologist Direct Phone Line: [phone] signed by Aline Morales on 11/24/2017 at 10:33 [id number], shortness of breath, abnormal CT lung screeningLEFTUPPER LOBE LUNG BAL20 mls in cytorich red; 4 cytospinsCollected: [id number]: [id number] [facility], Department of Pathology, [address] [place], [place] [address], [id number] [facility], Department of [facility]ology, [address] [place] [id number], JTLK [id number] 10:21:00Flow Cytometry Report Case: [id number] Authorizing Provider: Josefa Padilla MD Collected: 11/23/2017 1206 Ordering Location: [facility] Received: 11/23/2017 1513 Pathologist: Asaf Cevallos MD Specimen: Other LEFT UPPER LOBE LUNG BRONCHOALVEOLAR LAVAGE FLOW CYTOMETRY: T CELLS SHOW ACD4:CD8 RATIO OF 2.6Electronically signedby Asaf Cevallos MD on 11/24/2017 at 10:21 [id number] of breathLEFT UPPER LOBE LUNG BALCD3, CD4, CD8, GM13Xswiszffu: 87%Bright CD45+ lymphocytes comprise 55.4% of total cells, and include 97.5% ofCD3+ T cells. T cells are comprised of 71.6% CD4+CD8- and 27.8% CD4- CD8+subsets.These testswere developed and their performance characteristics determined [...] high-complexity clinical testing.BODY FLUID CELL COUNT WITH [id number] 17:58:00 Test Item Value Reference Range Interpretation Comments APPEARANCE FLUID Moderately Cloudy Clear A (BEAKER) (test code = 510) COLOR FLUID Colorless, Straw Red Tinge (BEAKER) (test code = 511) RBC FLUID (BEAKER) 4000 /cu mm <=1 H (test code = 513) ADJUSTED WBC FLUID 353 /cu mm <=5 H (BEAKER) (test code = 1691) LINING CELLS 106 /cu mm <=1 H (BEAKER) (test code = 1590) NEUTROPHILS FLUID 32 % Diff perfo rmed on (BEAKER) (test code degenera isela WBCs = 1656) LYMPHS FLUID 32 % (BEAKER) (test code = 488) MONO/MACROPHAGE 36 % FLUID (BEAKER) (test code = 489) EOSINOPHILS FLUID 0 % (BEAKER) (test code = 491) BASO FLUID (BEAKER) 0 % (test code = 492) CONTAINER BODY EDTA Tube FLUID (BEAKER) (test code = 2873) CYTOLOGY [id number] 16:01:00 Test Item Value Reference Range Interpretation Comments CYTOLOGY RESULT POINTER See Separate Report (BEAKER) (test code = 0159)
[2021-09-07 22:30] LABS: Absolute Lymphocytes (CBC) 1.7 K/uL (0.7-4.9); Hematocrit 42.4 % (36.0-45.0); Lymphocytes % 17.4 % (15.3-44.8); MPV 9.5 fL (7.6-11.3); RBC Red Blood Cell Count 4.95 M/uL (3.86-4.86)
[2021-09-07 22:59] LABS: Troponin High Sensitivity 6.9 pg/mL (<58.9)
[2021-09-07 23:14] LABS: Albumin 3.8 g/dL (3.4-5.0); Bilirubin Direct 0.2 mg/dL (0-0.2); Bilirubin Total 0.7 mg/dL (0.2-1.0); Protein, Total 7.6 g/dL (6.4-8.2)
--- NOTE | 2021-09-07 23:31 | ER ---
Nurse's Notes [facility] Name: Emma Cordova Age: 76 yrs Sex: Female : 1945 Arrival Date: 09/07/2021 Time: 21:49 Bed 26 Private MD: Diagnosis: Chest pain, unspecified Presentation: 09/07 22:00 Chief complaint: EMS states: Pt reports having a yeast infection that she has been jb4 treating her self for the past couple days. BGL was 133. 20g LAC She also reports SOB, dizziness, chest tightness. Pt reports taking Affexor, trazadone, zanax, CBD, and tylenol # 3 for the past few days. Coronavirus screen: At this time, the client does not indicate any symptoms associated with coronavirus-19. Ebola Screen: No symptoms or risks identified at this time. Initial Sepsis Screen: Does the patient meet any 2 criteria? No. Patient's initial sepsis screen is negative. Does the patient have a suspected source of infection? No. Patient's initial sepsis screen is negative. Risk Assessment: Do you want to hurt yourself or someone else? Patient reports no desire to harm self or others. Onset of symptoms was September 05, 2021. Transition of care: patient was not received from another setting of care. 22:00 Method Of Arrival: EMS: [facility] 4 22:00 Acuity: HERNÁN 3 jb4 Triage Assessment: 22:15 General: Appears in no apparent distress. Behavior is cooperative, appropriate for age. ke1 Pain: Complains of pain in chest Pain Quality of pain is described as tighteness. Neuro: Level of Consciousness is awake, alert, Oriented to person, place, time, situation. Cardiovascular: Heart tones S1 S2 Capillary refill < 3 seconds Rhythm is. Respiratory: Airway is patent Respiratory effort is even, unlabored. Historical: - Allergies: 22:03 Atarax; jb4 22:03 Benadryl; jb4 - PMHx: 22:03 Anxiety; Depression; Alcoholism; Hypercholesterolemia; jb4 - PSHx: 22:03 lung/diaphram surgery; wisdom teeth removal; ; jb4 - Immunization history:: Adult Immunizations unknown. - Social history:: Smoking status: unknown. Screenin:15 Abuse screen: Denies threats or abuse. Nutritional screening: No deficits noted. ke1 Tuberculosis screening: No symptoms or risk factors identified. Fall Risk No fall in past 12 months (0 pts). No secondary diagnosis (0 pts). IV access (20 points). Ambulatory Aid- None/Bed Rest/Nurse Assist (0 pts). Gait- Weak (10 pts.). Mental Status- Oriented to own ability (0 pts). Total Jeter Fall Scale indicates Low Risk Score (25-44 pts). Fall prevention measures have been instituted. Side Rails Up X 2 Placed close to Nursing Station Frequent Obs/Assesments occuring. Vital Signs: 22:00 BP 170 / 88; Pulse 66; Resp 16; Temp 97.0(TE); Pulse Ox 98% on R/A; Weight 67.59 kg jb4 (R); Height 5 ft. 3 in. (160.02 cm) (R); Pain 6/10; 22:00 Body Mass Index 26.39 (67.59 kg, 160.02 cm) jb4 ED Course: 21:49 Patient arrived in ED. la1 21:52 Corrina Thurston FNP-C is PHCP. kb 21:52 Cortes Armenta MD is Attending Physician. kb 22:03 Triage completed. jb4 22:03 Arm band placed on right wrist. jb4 22:04 Patient has correct armband on for positive identification. Placed in gown. Bed in low mh5 position. Call light in reach. Side rails up X 1. Side rails up X2. Warm blanket given. Pulse ox on. NIBP on. 22:07 Ellyn Blanton, RN is Primary Nurse. ke1 22:18 Initial lab(s) drawn, by nj, sent to lab. COVID swab sent to lab. Flu and/or RSV swab mh5 sent to lab. Maintain EMS IV. Dressing intact. Good blood return noted. Site clean \\T\\ dry. 22:19 COVID-19 SARS RT PCR (Document "Date of Onset" if Symptomatic) Sent. 5 22:19 Flu Sent. 5 22:19 Basic Metabolic Panel Sent. 5 22:19 CBC with Diff Sent. 5 22:19 Troponin HS Sent. 5 22:19 EKG done, by ED staff, reviewed by Cortes Armenta MD. mh5 22:34 Basic Metabolic Panel Sent. mh5 22:34 Troponin HS Sent. mh5 22:44 XRAY Chest (1 view) In Process Unspecified. EDMS 22:48 manager monitoring on. 5 23:30 Domo Scott MD is Hospitalizing Provider. kb Administered Medications: 09/08 00:02 Drug: morphine 2 mg Route: IVP; Infused Over: 4 mins; Site: left antecubital; ke1 00:02 Drug: Zofran (Ondansetron) 4 mg Route: IVP; Site: left antecubital; ke1 00:02 Drug: NS 0.9% 500 ml Route: IV; Rate: bolus; Site: left antecubital; ke1 00:02 Drug: NS 0.9% 1000 ml Route: IV; Rate: 75 ml/hr; Site: left antecubital; ke1 00:03 Not Given (already took at home): Aspirin Chewable Tablet 324 mg PO once; 81 mg tablets ke1 x 4 00:03 Drug: Potassium Effervescent Tablet 50 mEq Route: PO; ke1 Outcome: 09/07 23:30 Decision to Hospitalize by Provider. john 09/08 19:08 Patient left the ED. bb Signatures: Dispatcher [employer] EDMS Corrina Thurston, BERNADINEC BRITTANY-Aurora Wadsworth RN RN bb Attema, Lee, FNP-C BRITTANY-Kevin Gar RN RN jb4 Lynnette Gomez Ellyn Nielson RN RN ke1
--- NOTE | 2021-09-07 23:31 | EDPHYS ---
Physician Documentation [facility] Name: Emma Cordova Age: 76 yrs Sex: Female : 1945 Arrival Date: 09/07/2021 Time: 21:49 Bed 26 Private MD: ED Physician Cortes Armenta HPI: 09/07 22:57 This 76 yrs old Female presents to ER via EMS with complaints of Pt. thinks she has a kb yeast infection. 22:57 "I think I have pneumonia. I am having chest tightness and shortness of breath." Pt kb reports she has also had some dizziness over the past few days and hasn't been able to sleep. Has been treating a yeast infection under right breast with an ointment and powder given to her by her loan servicing representative. . 23:04 The patient or guardian reports chest pain that is located primarily in the anterior kb chest wall, left. Onset: yesterday. The pain does not radiate. Associated signs and symptoms: Pertinent positives: shortness of breath. The chest pain is described as tightness. Duration: The patient or guardian reports a single episode. Modifying factors: The symptoms are alleviated by nothing. the symptoms are aggravated by nothing. Severity of pain: At its worst the pain was moderate in the emergency department the pain is unchanged. The patient has not experienced similar symptoms in the past. The patient has not recently seen a physician. Historical: - Allergies: 22:03 Atarax; jb4 22:03 Benadryl; jb4 - PMHx: 22:03 Anxiety; Depression; Alcoholism; Hypercholesterolemia; jb4 - PSHx: 22:03 lung/diaphram surgery; wisdom teeth removal; ; jb4 - Immunization history:: Adult Immunizations unknown. - Social history:: Smoking status: unknown. ROS: 22:37 Constitutional: Negative for fever, chills, and weight loss. kb 22:37 Cardiovascular: Positive for chest pain, Negative for edema, orthopnea, palpitations, paroxysmal nocturnal dyspnea. 22:37 Respiratory: Positive for shortness of breath, Negative for cough, dyspnea on exertion, hemoptysis, orthopnea, pleurisy, sputum production, wheezing. 22:37 Skin: Positive for yeast infection below right breast. 22:37 Psych: Positive for insomnia. 22:37 All other systems are negative. Exam: 23:03 Constitutional: This is a well developed, well nourished patient who is awake, alert, kb and in no acute distress. Head/Face: Normocephalic, atraumatic. ENT: Moist Mucous membranes Cardiovascular: Regular rate and rhythm with a normal S1 and S2. No gallops, murmurs, or rubs. No pulse deficits. Respiratory: Respirations even and unlabored. No increased work of breathing. Talking in full sentences Abdomen/GI: Soft, non-tender. No distention Skin: Warm, dry with normal turgor. Normal color. MS/ Extremity: Pulses equal, no cyanosis. Neurovascular intact. Full, normal range of motion. Neuro: Awake and alert, GCS 15, oriented to person, place, time, and situation. Moves all extremities. Normal gait. Psych: Awake, alert, with orientation to person, place and time. Behavior, mood, and affect are within normal limits. 23:03 ECG was reviewed by the Attending Physician. Vital Signs: 22:00 BP 170 / 88; Pulse 66; Resp 16; Temp 97.0(TE); Pulse Ox 98% on R/A; Weight 67.59 kg jb4 (R); Height 5 ft. 3 in. (160.02 cm) (R); Pain 6/10; 22:00 Body Mass Index 26.39 (67.59 kg, 160.02 cm) jb4 MDM: 21:52 Patient medically screened. kb 22:36 Data reviewed: vital signs, nurses notes. Data interpreted: Pulse oximetry: on room air kb is 98 %. Interpretation: normal. 23:03 The patient was given aspirin in the Emergency Department. Counseling: I had a detailed kb discussion with the patient and/or guardian regarding: the historical points, exam findings, and any diagnostic results supporting the discharge/admit diagnosis, lab results, radiology results, the need for further work-up and treatment in the hospital. Physician consultation: Demario SCALES was contacted at 23:03, regarding admission, to the telemetry unit. patient's condition, and will see patient in ED. 09/07 21:52 Order name: Basic Metabolic Panel; Complete Time: 23:40 kb 09/07 21:52 Order name: CBC with Diff; Complete Time: 22:34 kb 09/07 21:52 Order name: Troponin HS; Complete Time: 23:40 kb 09/07 21:52 Order name: COVID-19 SARS RT PCR (Document "Date of Onset" if Symptomatic); Complete kb Time: 23:44 09/07 21:52 Order name: Flu; Complete Time: 23:33 kb 09/07 22:44 Order name: DD la1 09/07 22:46 Order name: ETOH Level; Complete Time: 23:17 la1 09/07 22:46 Order name: UDS [facility] 09/07 23:03 Order name: Liver (Hepatic) Function; Complete Time: 23:40 EDMS 09/07 23:25 Order name: NT PRO-BNP; Complete Time: 23:40 EDMS 09/07 23:25 Order name: Magnesium; Complete Time: 23:40 EDMS 09/07 21:52 Order name: XRAY Chest (1 view) 09/08 00:22 Order name: Urine Dipstick-Ancillary; Complete Time: 00:56 EDMS 09/08 00:57 Order name: Urine Microscopic Only [facility] 09/08 00:57 Order name: Urine Culture [facility] 09/08 01:08 Order name: Urine Microscopic Only; Complete Time: 01:12 EDMS 09/08 05:31 Order name: CBC with Automated Diff EDPA 09/08 05:52 Order name: Osmolality, Serum EDMS 09/08 06:02 Order name: Comprehensive Metabolic Panel EDPA 09/08 06:02 Order name: Creatine Phosphokinase EDPA 09/08 06:02 Order name: Magnesium EDPA 09/08 08:41 Order name: Troponin High Sensitivity EDPA 09/08 08:41 Order name: T4 Free EDPA 09/08 08:41 Order name: Thyroid Stimulating Hormone EDMS 09/08 13:56 Order name: NM EDMS 09/08 14:56 Order name: Troponin High Sensitivity EDMS 09/07 21:52 Order name: EKG; Complete Time: 21:54 kb 09/07 21:52 Order name: Cardiac monitoring; Complete Time: 22:19 kb 09/07 21:52 Order name: EKG - Nurse/Tech; Complete Time: 22:19 kb 09/07 21:52 Order name: IV Saline Lock; Complete Time: 22:19 kb 09/07 21:52 Order name: Labs collected and sent; Complete Time: 22:19 kb 09/07 21:52 Order name: O2 Per Protocol; Complete Time: :19 kb 09/07 21:52 Order name: O2 Sat Monitoring; Complete Time: :19 kb EC:03 Rate is 61 beats/min. Rhythm is regular. QRS [place] is Normal. AR interval is normal at kb 176 msec. QRS interval is normal at 100 msec. QT interval is normal at 408 msec. Administered Medications: 09/08 00:02 Drug: morphine 2 mg Route: IVP; Infused Over: 4 mins; Site: left antecubital; ke1 00:02 Drug: Zofran (Ondansetron) 4 mg Route: IVP; Site: left antecubital; ke1 00:02 Drug: NS 0.9% 500 ml Route: IV; Rate: bolus; Site: left antecubital; ke1 00:02 Drug: NS 0.9% 1000 ml Route: IV; Rate: 75 ml/hr; Site: left antecubital; ke1 00:03 Not Given (already took at home): Aspirin Chewable Tablet 324 mg PO once; 81 mg tablets ke1 x 4 00:03 Drug: Potassium Effervescent Tablet 50 mEq Route: PO; ke1 Disposition Summary: 09/07/21 23:30 Hospitalization Ordered Hospitalization Status: Observation kb Provider: Domo Scott Condition: Stable kb Problem: new kb Symptoms: are unchanged kb Bed/Room Type: Standard Location: [facility] ER HOLD(09/08/21 00:21) Room Assignment: ERHOLD-(09/08/21 00:21) Diagnosis - Chest pain, unspecified kb Forms: - Medication Reconciliation Form kb - SBAR form kb Signatures: Dispatcher [employer] EDMS Corrina Thurston, RECORDIST-C RECORDIST-Ckb Demario Rodriguez RECORDIST-C RECORDIST-Cla1 Angelica Jones RN RN Kevin Flynn RN RN jb4 Ellyn Blanton RN RN ke1 Corrections: (The following items were deleted from the chart) 09/07 23:03 22:45 HEPATIC FUNCTION+C.LAB.BRZ ordered. EDMS EDMS 23:22 23:20 PROBNP+C.LAB.BRZ ordered. EDMS EDMS 23:22 23:20 MAGNESIUM+C.LAB.BRZ ordered. EDMS EDMS 09/08 00:09/07 23:30 Telemetry/MedSurg (observation) kb cg 09/08 00:09/07 23:30 [facility]
[2021-09-07 23:36] LABS: Magnesium 1.9 mg/dL (1.8-2.4)
[2021-09-07] MEDS ORDERED: ASPIRIN 81 MG CHEWABLE TABLET ONE (23:57)
[2021-09-07] MEDS ORDERED: POTASSIUM 25 MEQ EFFERV TAB ONE (23:57)
[2021-09-07] MEDS ORDERED: MORPHINE 2 MG/ML SYR ONE (23:57)
[2021-09-07] MEDS ORDERED: ONDANSETRON 4 MG/2 ML VIAL ONE (23:57)
[2021-09-07] MEDS ORDERED: NA CHLORIDE 0.9% 1,000 ML ONE (23:58)
[2021-09-07] MEDS ORDERED: NA CHLORIDE 0.9% 500 ML ONE (23:58)
[2021-09-08 00:21] LABS: Urine Blood Trace-intact (Negative); Urine Glucose Negative (Negative); Urine Protein Negative (Negative)
--- NOTE | 2021-09-08 00:22 | P.HP ---
Certification for Inpatient Patient admitted to: Observation With expected LOS: <2 Midnights Patient will require the following post-hospital care: None Practitioner: I am a practitioner with admitting privileges, knowledge of patient current condition, hospital course, and medical plan of care. Services: Services provided to patient in accordance with Admission requirements found in Title 42 Section 412.3 of the Code of Federal Regulations Patient History Date of Service: 09/08/21 Reason for admission: Chest pain History of Present Illness: 76-year-old female with history of anxiety/depression, hyperlipidemia presents emergency department for chest tightness/shortness of breath. She reports has been having intermittent chest tightness over the course last few days with associated shortness of breath reports her last tress test was around 2 years ago has never had heart catheterization. She was evaluated in the emergency department her EKG was without ST elevations chest x-ray was unremarkable her labs were significant for mild hyponatremia, hypokalemia initial troponin negative ED provider wishes to admit for ACS rule out, electrolyte imbalances. Allergies diphenhydramine [From Benadryl] Allergy (Intermediate, Verified 07/28/18 02:13) Hives hydroxyzine [From Atarax] Allergy (Intermediate, Verified 07/28/18 02:13) Hives Home Medications: Albuterol Sulfate [Proair Hfa] 2 puff IH TID PRN #1 [email or web address] 07/28/18 Atorvastatin Calcium 10 mg PO DAILY 07/28/18 Budesonide/Formoterol Fumarate [Symbicort 160-4.5 Mcg Inhaler] 2 puff IH BID #1 hfa.aer.ad 07/28/18 Cetirizine HCl [Zyrtec] 10 mg PO DAILY 07/28/18 Codeine/APAP [Tylenol #3*] 1 tab PO Q6HP PRN 07/28/18 Fluoxetine HCl [Prozac*] 10 mg PO DAILY 07/28/18 predniSONE [Deltasone] 20 mg PO SEECOM #15 tab 07/28/18 - Past Medical/Surgical History Diabetic: No -: Shingles x2 -: Depression -: Anxiety -: Hyperlipidemia -: Diaphragm sx - 2018 -: x2 Psychosocial/ Personal History: Patient lives at home with her - Family History Mother -: Stroke - Social History Smoking Status: Current some day smoker Smoking therapy provided: No Alcohol use: No CD- Drugs: No Caffeine use: Yes Place of Residence: Home Review of Systems 10-point ROS is otherwise unremarkable General: Weakness Respiratory: Shortness of Breath Cardiovascular: Chest Pain Physical Examination - Physical Exam General: Alert, In no apparent distress, Oriented x3 HEENT: Atraumatic, PERRLA, Mucous membr. moist/pink, EOMI, Sclerae nonicteric Neck: Supple, 2+ carotid pulse no bruit, No LAD, Without JVD or thyroid abnormality Respiratory: Clear to auscultation bilaterally, Normal air movement Cardiovascular: Regular rate/rhythm, Normal S1 S2 Gastrointestinal: Normal bowel sounds, No tenderness Musculoskeletal: No tenderness Integumentary: No rashes Neurological: Normal speech, Normal strength at 5/5 x4 extr, Normal tone, Normal affect - Studies Laboratory Data (last 24 hrs) 09/07/21 23:19: Magnesium Cancelled 09/07/21 22:44: Total Bilirubin Cancelled, AST Cancelled, ALT Cancelled, Alkaline Phosphatase Cancelled 09/07/21 22:15: WBC 9.9, Hgb 14.6, Hct 42.4, Plt Count 210 09/07/21 22:15: Sodium 125 L, Potassium 3.0 L, BUN 7, Creatinine 0.73, Glucose 127 H, Magnesium 1.9, Total Bilirubin 0.7, AST 28, ALT 31, Alkaline Phosphatase 116 Microbiology Data (last 24 hrs): 09/07/21 22:10 Nasopharnyx Influenza Type A Antigen Screen - Final 09/07/21 22:10 Nasopharnyx Influenza Type B Antigen Screen - Final Assessment and Plan - Plan Assessment: Chest pain rule out ACS Hyponatremia, hypokalemia Hyperlipidemia Anxiety/depression Malaise/weakness Plan: Chest pain rule out ACS: trend troponins, monitor on tele, cardiology consult. ASA/statin. Hyponatremia, hypokalemia: Given IV fluids, potassium in ED, will continue gentle hydration, potassium protocol. Will obtain urine electrolytes/urine and serum osmolality. Need to review home medications for possibility of contributing to hyponatremia. Patient reports she was told her electrolytes were abnormal few weeks ago. She is unsure of which electrolytes Hyperlipidemia: Atorvastatin Anxiety/depression: Review home medications, restart as appropriate. Malaise/weakness: Patient evaluated by physical therapy. DVT PPX: Lovenox Code status: Full Discharge Plan: Home Plan to discharge in: 24 Hours - Advance Directives Does patient have a Living Will: No Does patient have a Durable POA for Healthcare: No - Code Status/Comfort Care Code Status Assessed: Yes (Full code) Critical Care: No Time Spent Managing Pts Care (In Minutes): 70
[2021-09-08 00:50] LABS: Barbiturates NEGATIVE (NEGATIVE); Benzodiazepines NEGATIVE (NEGATIVE); Cocaine NEGATIVE (NEGATIVE); METHAMPHETAM NEGATIVE (NEGATIVE); Methadone NEGATIVE (NEGATIVE); Opiates NEGATIVE (NEGATIVE); Phencyclidine NEGATIVE (NEGATIVE); THC Cannibis NEGATIVE (NEGATIVE)
[2021-09-08 01:07] LABS: Urine Bacteria <20 /HPF (<20)
[2021-09-08 01:08] LABS: Urine RBC <5 /HPF (NONE SEEN)
[2021-09-08] MEDS ORDERED: MORPHINE 2 MG/ML SYR IV PRN (04:19)
[2021-09-08] MEDS ORDERED: ONDANSETRON 4 MG/2 ML VIAL IV PRN (04:19)
[2021-09-08] MEDS ORDERED: NA CHLORIDE 0.9% 1,000 ML IV SCH (04:19)
[2021-09-08 04:40] VITALS: BMI 26.4
[2021-09-08 05:28] LABS: Absolute Lymphocytes (CBC) 1.4 K/uL (0.7-4.9); Hematocrit 42.1 % (36.0-45.0); Lymphocytes % 15.1 % (15.3-44.8); MPV 9.2 fL (7.6-11.3); RBC Red Blood Cell Count 4.85 M/uL (3.86-4.86)
[2021-09-08 06:01] LABS: Albumin 3.6 g/dL (3.4-5.0); Bilirubin Total 0.6 mg/dL (0.2-1.0); Magnesium 2.2 mg/dL (1.8-2.4); Protein, Total 7.1 g/dL (6.4-8.2)
[2021-09-08] MEDS ORDERED: NA CHLORIDE 0.9% 1,000 ML ONE (07:54)
[2021-09-08 08:41] LABS: Thyroid Stimulating Hormone 1.03 uIU/mL (0.360-3.740); Troponin High Sensitivity 6.7 pg/mL (<58.9)
[2021-09-08] MEDS ORDERED: ASPIRIN EC 81 MG TAB PO SCH (09:00)
[2021-09-08] MEDS ORDERED: ENOXAPARIN 40 MG/0.4 ML SQ SCH (09:00)
[2021-09-08] MEDS ORDERED: REGADENOSON 0.4 MG/5 ML SYR IV ONE (10:11)
[2021-09-08] MEDS ORDERED: ALBUTEROL INHALER 60 PUFF/8 GM IH PRN (11:40)
[2021-09-08] MEDS ORDERED: ALPRAZOLAM 0.5 MG TABLET PO PRN (11:40)
--- NOTE | 2021-09-08 13:33 | EKG ---
Test Date: 2021-09-07 Test Time: 22:24:55 Platform Consultant: LE MEASUREMENT RESULTS: Intervals: Rate: 61 WI: 176 QRSD: 100 QT: 406 QTc: 408 [place]: P: 65 WI: 176 QRS: 46 T: 77 INTERPRETIVE STATEMENTS: Normal sinus rhythm Normal ECG Compared to ECG 07/27/2018 19:16:03 Sinus tachycardia no longer present Ventricular premature complex(es) no longer present Electronically Signed On 09-08-21 13:32:22 CDT by Houston Yip
--- NOTE | 2021-09-08 13:42 | TREADPHA ---
DX: CHEST PRESSURE Date of Study: 09/08/2021 Ht: 5' 3 " Wt: 149 lb 0.167 oz Consulting Physician: LEON MEDICATIONS: ASPIRIN, LIPITOR, LOVENOX HISTORY: PHYSICIAL EXAMINATION: RESTING B.P.: 151/81 RESTING H.R.: 65 RESTING EKG: WITHIN NORMAL LIMITS PROTOCOL: PHARMACOLOGIC EXERCISE TIME: 3:30 B.P. AT PEAK STRESS: 161/72 IMPRESSION: LEXISCAN INJECTED. CARDIOLITE INJECTED (SEE NUCLEAR MEDICINE REPORT). OCCASIONAL PREMATURE VENTRICULAR COMPLEXES NOTED THROUGHOUT. ONE COUPLET NOTED AFTER LEXISCAN INJECTED. NO VENTRICULAR TACHYCARDIA/ SUPRAVENTRICULAR TACHYCARDIA. MILD ANXIETY THROUGHOUT. NO ELECTROCARDIOGRAM CHANGES WITH LEXISCAN.
--- NOTE | 2021-09-08 13:55 | RAD REPORT ---
EXAM DESCRIPTION: NM - Rest Stress Cardiac Imaging - 09/08/2021 1:44 pm CLINICAL HISTORY: CP Chest pain. COMPARISON: No comparisons TECHNIQUE: The patient was administered approximately 10mCi of Tc 99m Sestamibi prior to resting SPE CT imaging of the heart. The patient was then administered approximately 30 mCi of Tc 99m Sestamibi f ollowing exercise or pharmacologic stress. Multiplanar SPECT images were reviewed. FINDINGS: No stress induced ischemic defect is seen to suggest stress induced ischemia. No fixed def ect is seen to suggest hibernating myocardium or scarred myocardium. The end diastolic volume is 68 ml, the end systolic volume is 23 ml, and the ejection fraction is 66 %. IMPRESSION: No stress induced ischemia.
[2021-09-08] MEDS: CODEINE 30MG/APAP 300MG TAB PO PRN ×2 (13:59→15:23)
[2021-09-08] MEDS ORDERED: ALPRAZOLAM 0.5 MG TABLET ONE (14:04)
[2021-09-08] MEDS ORDERED: CODEINE 30MG/APAP 300MG TAB ONE ×2 (14:04→15:22)
[2021-09-08] MEDS ORDERED: ASPIRIN EC 81 MG TAB PO ONE (14:05)
--- NOTE | 2021-09-08 15:42 | RAD REPORT ---
EXAM DESCRIPTION: RAD - Chest Single View - 09/07/2021 10:41 pm CLINICAL HISTORY: 76 years, Female, DYSPNEA COMPARISON: None. FINDINGS: Single view of the chest was obtained portable. No prior films are available for compariso n. There is marked elevation of the left hemidiaphragm with the findings suggesting diaphragmatic att enuation perhaps related to previous trauma. Minimal compressive atelectatic changes left lung base. The cardiomediastinal silhouette demonstrate to be unremarkable. The heart is not enlarged. The thora cic aorta is unremarkable. The right lung is clear. No significant pleural effusions. The rest of the soft tissue and bony structures demonstrate to be unremarkable. IMPRESSION: Marked elevation of the left hemidiaphragm with compressive atelectatic changes left christiane g base. Electronically signed by: Brett Orr MD 09/07/2021 11:04 PM CDT Due to temporary technical issues with the PACS/Fluency reporting system, reports are being signed by the in house radiologist without review as a courtesy to ensure prompt reporting. The interpreting r adiologist is fully responsible for the content of the report.
[2021-09-08 18:27] VITALS: BP 137/64; TEMP 98.6
[2021-09-08 19:20] VITALS: O2SAT 98
[2021-09-08] MEDS ORDERED: ATORVASTATIN 40 MG TAB PO SCH (21:00)
[2021-09-08] MEDS ORDERED: ATORVASTATIN 10 MG TAB PO SCH (21:00)
--- NOTE | 2021-09-11 20:29 | CON ---
Date of Consultation: 09/08/2021 Reason For Consultation: Chest pain and shortness of breath. History Of Present Illness: Ms. Cordova is a 76-year-old woman. Came in with yeast infection, atypica l chest pain, pneumonia, shortness of breath. Denied any nausea, vomiting, diaphoresis, PND, orthopn ea, pedal edema, palpitations, or syncope. Denied any fever or chills. Has had dysuria and cough. By the time we saw her, her workup showed UTI, otherwise everything else was normal, her EKG, chest x -ray, troponin and BNP. Past Medical History: Includes alcohol use, dyslipidemia, anxiety and depression. Allergies: SHE IS ALLERGIC TO BENADRYL AND HYDROXYZINE. Medications: At home include inhalers and steroids. Review of Systems: Negative. Social History: Negative. Family History: Negative. Physical Examination: Vital Signs: Stable. She was afebrile. HEENT: Negative. Neck: Supple with no bruit, lymphadenopathy, JVD, or thyromegaly. Chest: Clear to auscultation and percussion. Cardiac: Revealed a regular rhythm and rate. No murmurs, gallops, or rubs. Abdomen: Benign. Extremities: Revealed no clubbing, cyanosis, or edema. Diagnostic Data: All within normal limit. Impression And Plan: 1.Atypical chest pain, more likely secondary to pneumonia. 2.Shortness of breath, probably secondary to pneumonia. 3.Yeast infection. 4.Dyslipidemia. 5.Alcohol use. 6.Anxiety and depression. A Lexiscan that was done today showed no evidence of stress-induced ische marshall. I am comfortable Ms. Cordova going home on antibiotics, inhalers, steroids, and for her to follow up with her primary care physician. No further cardiac workup recommended at this point. MINA/OLIVIAL Voice ID: [id number] Report ID: [id number]
== END 2021-09-08 19:09 | disposition home or self-care (01) ==
LOC: ER 21:47 → ERHOLD 09-08 00:31
PROVIDERS: ADMIT Hospitalist; ATTEND Hospitalist
DX: R07.89 Other chest pain (principal); E87.1 Hypo-osmolality and hyponatremia; E87.6 Hypokalemia; R06.02 Shortness of breath; R53.1 Weakness; R53.81 Other malaise; R05.9 Cough, unspecified; E78.5 Hyperlipidemia, unspecified; B37.9 Candidiasis, unspecified; F41.9 Anxiety disorder, unspecified; F32.A Depression, unspecified; Z72.89 Other problems related to lifestyle; Z20.822 Contact with and (suspected) exposure to COVID-19; F17.200 Nicotine dependence, unspecified, uncomplicated; Z79.52 Long term (current) use of systemic steroids; Z79.899 Other long term (current) drug therapy; Z88.8 Allergy status to other drugs, medicaments and biological substances; Z82.3 Family history of stroke
CPT/HCPCS: 93005; 93017; 87088; 85025 ×2; 87086; 80048; 36415; 80320; 83735 ×2; 82550; 85379; 80076; 84443; 87077; 87186; 84484 ×3; 84439; 80053; 83880; 80307; 83930; 87804 ×2; 71045; 97161; 97530; 78452; 96375; 96374; 99284; U0003; J2270; J2785; J7040; J7030 ×2; J2405; A9500; G0378 ×2; 81003; 81015

== ENCOUNTER 2021-10-25 14:24 | Emergency (ER) | payer OTHER ==
[2021-10-25 15:11] LABS: Absolute Lymphocytes (CBC) 2.2 K/uL (0.7-4.9); Hematocrit 40.5 % (36.0-45.0); RBC Red Blood Cell Count 4.71 M/uL (3.86-4.86)
[2021-10-25 15:21] LABS: Protime INR 1.04
[2021-10-25 15:24] LABS: Urine Blood Negative (Negative); Urine Glucose Negative (Negative); Urine Protein Negative (Negative); Urine Specific Gravity 1.015 (1.005-1.030)
[2021-10-25 15:30] LABS: ALT/SGPT 43 U/L (12-78); AST/SGOT 28 U/L (15-37); Albumin 3.1 g/dL (3.4-5.0); Alkaline Phosphatase 99 U/L (45-117); BUN Blood Urea Nitrogen 7 mg/dL (7-18); Bicarbonate 27 mmol/L (21-32); Bilirubin Direct 0.2 mg/dL (0-0.2); Bilirubin Total 0.6 mg/dL (0.2-1.0); Glomerular Filtration Rate 83 ml/min (=/>90); Glucose Level 126 mg/dL (74-106); Protein, Total 6.1 g/dL (6.4-8.2); Sodium Level 132 mmol/L (136-145)
[2021-10-25 15:33] LABS: Potassium 2.9 mmol/L (3.5-5.1)
[2021-10-25] MEDS ORDERED: BUPIVACAINE 0.5% PF 10 ML VIAL ONE (15:35)
[2021-10-25] MEDS ORDERED: LIDOCAINE 1% MPF 5 ML VIAL ONE (15:35)
[2021-10-25 15:41] LABS: SARS-CoV-2 Antigen Rapid Res Negative (Negative)
[2021-10-25 15:44] LABS: Barbiturates NEGATIVE (NEGATIVE); Benzodiazepines POSITIVE (NEGATIVE); Cocaine NEGATIVE (NEGATIVE); METHAMPHETAM NEGATIVE (NEGATIVE); Methadone NEGATIVE (NEGATIVE); Opiates NEGATIVE (NEGATIVE); Phencyclidine NEGATIVE (NEGATIVE); THC Cannibis NEGATIVE (NEGATIVE)
[2021-10-25] MEDS ORDERED: POTASSIUM CL SA 10 MEQ TAB PO ONE (16:27)
[2021-10-25] MEDS ORDERED: Ringers Lactate 1,000 ML IV ONE (16:27)
[2021-10-25 18:49] LABS: Absolute Lymphocytes (CBC) 2.4 K/uL (0.7-4.9); Hematocrit 36.9 % (36.0-45.0); Lymphocytes % 19.1 % (15.3-44.8); MCV 86.3 fL (80-100); MPV 9.1 fL (7.6-11.3); RBC Red Blood Cell Count 4.27 M/uL (3.86-4.86)
[2021-10-25 18:58] LABS: Potassium 3.3 mmol/L (3.5-5.1)
[2021-10-25] MEDS ORDERED: CIPROFLOXACIN HCL 500 MG TAB ONE (19:08)
[2021-10-25] MEDS ORDERED: LORazepam 2 MG/ML VIAL ONE (21:30)
--- NOTE | 2021-10-25 22:13 | ER ---
Nurse's Notes [facility] Name: Emma Cordova Age: 76 yrs Sex: Female : 1945 Arrival Date: 10/25/2021 Time: 14:31 Bed 16 Private MD: Diagnosis: Suicidal ideations;Lacerations to the extremities;Urinary tract infection Presentation: 10/25 14:42 Chief complaint: Patient states: Dizzy for 2 days. Decided to try to kill herself ll1 around 9 am because she thought she would never get better. Lacerations to both wrists. States her depression has been more than usual lately. Coronavirus screen: Vaccine status: Patient reports receiving the 2nd dose of the covid vaccine. Client denies travel out of the [place] in the last 14 days. At this time, the client does not indicate any symptoms associated with coronavirus-19. Ebola Screen: Patient denies travel to an Ebola-affected area in the 21 days before illness onset. Initial Sepsis Screen: Does the patient meet any 2 criteria? No. Patient's initial sepsis screen is negative. Does the patient have a suspected source of infection? Yes: Skin breakdown/wound. Risk Assessment: Do you want to hurt yourself or someone else? Patient reports no desire to harm self or others. Onset of symptoms was October 24, 2021. 14:42 Method Of Arrival: EMS [facility] 14:42 Acuity: HERNÁN 2 ll1 Triage Assessment: 14:45 General: Appears uncomfortable, ill, Behavior is calm, cooperative, appropriate for 2 age. Pain: Complains of pain in R wrist Quality of pain is described as aching. Neuro: Speech is normal, Reports dizziness, weakness. Derm: bilateral vertical lacerations to both wrists. Reports. Musculoskeletal: Circulation, motion, and sensation intact. Capillary refill < 3 seconds. Historical: - Allergies: 19:44 Atarax; ke1 19:44 Benadryl; ke1 - PMHx: 19:44 Alcoholism; Anxiety; Depression; Hypercholesterolemia; ke1 - PSHx: 19:44 ; lung/diaphram surgery; wisdom teeth removal; ke1 - Immunization history:: Adult Immunizations up to date, Client reports receiving the 2nd dose of the Covid vaccine. - Social history:: Smoking status: Patient/guardian denies using tobacco, the patient reports quitting approximately 40 years ago. Screenin:47 Abuse screen: Denies threats or abuse. Nutritional screening: No deficits noted. ll1 Tuberculosis screening: No symptoms or risk factors identified. Fall Risk IV access (20 points). Total Jeter Fall Scale indicates No Risk (0-24 pts). Assessment: 15:45 Reassessment: No changes from previously documented assessment. Patient and/or family ll1 updated on plan of care and expected duration. Pain level reassessed. Patient is alert, oriented x 3, equal unlabored respirations, skin warm/dry/pink. 16:45 Reassessment: No changes from previously documented assessment. Patient and/or family ll1 updated on plan of care and expected duration. Pain level reassessed. Patient is alert, oriented x 3, equal unlabored respirations, skin warm/dry/pink. 17:45 Reassessment: No changes from previously documented assessment. Patient and/or family ll1 updated on plan of care and expected duration. Pain level reassessed. Patient is alert, oriented x 3, equal unlabored respirations, skin warm/dry/pink. 18:45 Reassessment: No changes from previously documented assessment. Patient and/or family ll1 updated on plan of care and expected duration. Pain level reassessed. Patient is alert, oriented x 3, equal unlabored respirations, skin warm/dry/pink. 19:43 Reassessment: Patient appears in no apparent distress at this time. Patient and/or ke1 family updated on plan of care and expected duration. Pain level reassessed. Patient is alert, oriented x 3, equal unlabored respirations, skin warm/dry/pink. 19:47 Derm: Wound noted Other: bilateral wrist, sutures in place. ke1 19:49 General: Appears Behavior is calm, appropriate for age. Neuro: Level of Consciousness ke1 is awake, alert, Oriented to person, place, time, situation. Respiratory: Airway is patent Respiratory effort is even, unlabored, Respiratory pattern is regular, symmetrical. 20:35 Reassessment: Call received from Kelly at [facility] . She will ke1 consult her physician and call back. 23:25 Reassessment: Belongings given to EMS. [facility] Vital Signs: 14:42 BP 132 / 76; Pulse 94; Resp 16; Temp 99.0; Pulse Ox 98% on R/A; Pain 2/10; ll1 23:26 BP 129 / 72; Pulse 88; Resp 17; Pulse Ox 97% on R/A; ke1 ED Course: 14:31 Patient arrived in ED. eb 14:32 Gordo Mcgill PA is PHCP. jmm 14:32 Brittany Graham MD is Attending Physician. [facility] 14:41 Laurie Molina RN is Primary Nurse. ll1 14:41 Arm band placed on Patient placed in an exam room, on a stretcher. ll1 14:45 Triage completed. ll1 14:48 Patient has correct armband on for positive identification. Placed in gown. Bed in low ll1 position. Cardiac monitoring not applicable on this patient. 15:29 Acetaminophen Sent. zm 15:29 Basic Metabolic Panel Sent. zm 15:29 Hepatic Function Sent. zm 15:29 Salicylate Sent. zm 15:29 Urine Drug Screen Sent. zm 18:45 BMP: draw after ivf Sent. ll1 18:45 CBC with Diff Sent. ll1 19:00 Maintain EMS IV. Dressing intact. Good blood return noted. Site clean \T\ dry. Gauge \T\ ke 1 site: 20 G LAC. 19:44 Assisted to bedside commode. ke1 19:44 Recheck of sutures site, no sign of infection nor bleeding. ke1 23:26 No provider procedures requiring assistance completed. ke1 23:26 IV discontinued. ke1 Administered Medications: 16:00 Drug: Lidocaine (1 %) 20 ml Volume: 20 ml; Route: Infiltration; 1 16:00 Follow up: Response: No adverse reaction 1 16:00 Drug: Marcaine (bupivacaine) (0.5 %) 20 ml Volume: 10 ml; Route: Infiltration; ll1 16:01 Follow up: Response: No adverse reaction ll1 16:36 Drug: Potassium Chloride 40 mEq Route: PO; ll1 18:25 Follow up: Response: No adverse reaction 1 16:37 Drug: Lactated Ringers Solution 1000 ml Route: IV; Rate: 1000 bolus; Site: left ll1 antecubital; 18:25 Follow up: Response: No adverse reaction; IV Status: Completed infusion; IV Intake: ll1 1000ml 19:04 Drug: Cipro (ciprofloxacin) 500 mg Route: PO; ll1 23:28 Follow up: Response: No adverse reaction ke1 21:28 Drug: Ativan (LORazepam) 0.5 mg Route: IVP; Site: left antecubital; ke1 22:30 Follow up: Response: No adverse reaction; Anxiety decreased ke1 Medication: 14:48 VIS not applicable for this client. ll1 Intake: 18:25 IV: 1000ml; Total: 1000ml. ll1 Output: 19:44 Urine: 400ml (Voided); Stool: 1; Total: 400ml. ke1 Outcome: 22:13 ER care complete, transfer ordered by . stephen 23:26 Transferred by ground EMS Note: [facility] [place] ke1 23:26 Condition: good 23:26 Instructed on the need for transfer. 23:28 Patient left the ED. ke1 Signatures: Gordo Mcgill PA PA jmm Botello, Elizabeth eb Lewis, Lynsay, RN RN ll1 Ellyn Blanton RN RN ke1 Cathy Gomez
--- NOTE | 2021-10-25 22:14 | EDPHYS ---
Physician Documentation [facility] Name: Emma Cordova Age: 76 yrs Sex: Female : 1945 Arrival Date: 10/25/2021 Time: 14:31 Bed 16 Private MD: ED Physician Brittany Graham HPI: 10/25 17:29 This 76 yrs old Female presents to ER via EMS with complaints of suicidal ideation. jmm 17:29 This is 89-year-old female with a history of alcoholism, depression, hyperlipidemia the jmm presents emerged department with complaints of lacerations to both wrists. Patient states she cut her self around 9 AM this morning. Patient states she wanted to kill her self. Patient states this is due to ongoing illness in which she feels fatigued. Patient describes this is dizziness but denies sensation of room spinning. Patient is currently taking Cipro for UTI. Patient states she is currently taking venlafaxine with no relief of her depression.. Historical: - Allergies: 19:44 Atarax; ke1 19:44 Benadryl; ke1 - PMHx: 19:44 Alcoholism; Anxiety; Depression; Hypercholesterolemia; ke1 - PSHx: 19:44 ; lung/diaphram surgery; wisdom teeth removal; ke1 - Immunization history:: Adult Immunizations up to date, Client reports receiving the 2nd dose of the Covid vaccine. - Social history:: Smoking status: Patient/guardian denies using tobacco, the patient reports quitting approximately 40 years ago. ROS: 17:29 Cardiovascular: Negative for chest pain, palpitations, and edema, Respiratory: Negative jmm for shortness of breath, cough, wheezing, and pleuritic chest pain. 17:29 Constitutional: Positive for fatigue. 17:29 Psych: Positive for suicide gesture, suicidal ideation. 17:29 All other systems are negative. Exam: 17:29 Constitutional: This is a well developed, well nourished patient who is awake, alert, jmm and in no acute distress. Head/Face: atraumatic. Eyes: EOMI, no conjunctival erythema appreciated ENT: Moist Mucus Membranes Neck: Trachea midline, Supple Chest/axilla: Normal chest wall appearance and motion. Cardiovascular: Regular rate and rhythm. No edema appreciated Respiratory: Normal respirations, no respiratory distress appreciated Abdomen/GI: Non distended Back: Normal ROM 17:29 Skin: 4 cm laceration noted to the palmar surface of the left wrist, a 5 cm laceration noted to the palmar surface of the right wrist. 17:29 Neuro: Orientation: is normal, Mentation: is normal, Memory: is normal. 17:29 Psych: Behavior/mood is pleasant, cooperative. Vital Signs: 14:42 BP 132 / 76; Pulse 94; Resp 16; Temp 99.0; Pulse Ox 98% on R/A; Pain 2/10; ll1 23:26 BP 129 / 72; Pulse 88; Resp 17; Pulse Ox 97% on R/A; ke1 Laceration: 22:11 Wound Repair of 4cm ( 1.6in ) subcutaneous laceration to left arm. Distal jmm neuro/vascular/tendon intact. Anesthesia: Local anesthetic administered with 5 mls of 0.5% marcaine. Wound prep: Moderate cleansing with betadine by me. Skin closed with 5 4-0 Prolene using simple sutures and sterile technique. Patient tolerated well. 22:11 Wound Repair of 5cm ( 2.0in ) subcutaneous laceration to right arm. Distal jmm neuro/vascular/tendon intact. Anesthesia: Local anesthetic administered with 5 mls of 0.5% marcaine. Wound prep: Moderate cleansing with betadine by me. Skin closed with 6 4-0 Prolene using simple sutures and sterile technique. Patient tolerated well. MDM: 14:40 Patient medically screened. [facility] 22:11 Data reviewed: vital signs, nurses notes. [facility] 22:12 Counseling: I had a detailed discussion with the patient and/or guardian regarding: the [facility] historical points, exam findings, and any diagnostic results supporting the discharge/admit diagnosis, lab results. ED course: Dr. Santiago accepted to the patient for transfer. . 10/25 14:40 Order name: Acetaminophen; Complete Time: 16:04 [facility] 10/25 14:40 Order name: Basic Metabolic Panel; Complete Time: 16:04 [facility] 10/25 14:40 Order name: CBC with Diff; Complete Time: 15:30 [facility] 10/25 14:40 Order name: ETOH Level; Complete Time: 15:30 [facility] 10/25 14:40 Order name: Hepatic Function; Complete Time: 16:04 [facility] 10/25 14:40 Order name: PT-INR; Complete Time: 15:30 [facility] 10/25 14:40 Order name: Ptt, Activated; Complete Time: 15:30 [facility] 10/25 14:40 Order name: Salicylate; Complete Time: 16:04 [facility] 10/25 14:40 Order name: Urine Drug Screen; Complete Time: 16:04 [facility] 10/25 14:41 Order name: SARS RAPID; Complete Time: 16:04 [facility] 10/25 15:24 Order name: Urine Dipstick-Ancillary; Complete Time: 15:30 [facility] 10/25 17:41 Order name: BMP: draw after ivf; Complete Time: 19:37 [facility] 10/25 17:41 Order name: CBC with Diff; Complete Time: 18:53 [facility] 10/25 14:40 Order name: EKG; Complete Time: 14:43 [facility] 10/25 14:40 Order name: EKG - Nurse/Tech; Complete Time: 15:24 [facility] 10/25 14:40 Order name: IV Saline Lock; Complete Time: 15:16 [facility] 10/25 14:40 Order name: Labs collected and sent; Complete Time: 15:16 [facility] 10/25 14:40 Order name: Suicide Precautions; Complete Time: 15:16 [facility] 10/25 14:40 Order name: Suicide Screening ([place]); Complete Time: 15:33 [facility] 10/25 14:40 Order name: Urine Dipstick-Ancillary (obtain specimen); Complete Time: 15:16 jmm Administered Medications: 16:00 Drug: Lidocaine (1 %) 20 ml Volume: 20 ml; Route: Infiltration; 1 16:00 Follow up: Response: No adverse reaction 1 16:00 Drug: Marcaine (bupivacaine) (0.5 %) 20 ml Volume: 10 ml; Route: Infiltration; ll1 16:01 Follow up: Response: No adverse reaction ll1 16:36 Drug: Potassium Chloride 40 mEq Route: PO; ll1 18:25 Follow up: Response: No adverse reaction ll1 16:37 Drug: Lactated Ringers Solution 1000 ml Route: IV; Rate: 1000 bolus; Site: left ll1 antecubital; 18:25 Follow up: Response: No adverse reaction; IV Status: Completed infusion; IV Intake: ll1 1000ml 19:04 Drug: Cipro (ciprofloxacin) 500 mg Route: PO; ll1 23:28 Follow up: Response: No adverse reaction ke1 21:28 Drug: Ativan (LORazepam) 0.5 mg Route: IVP; Site: left antecubital; ke1 22:30 Follow up: Response: No adverse reaction; Anxiety decreased ke1 Disposition: 10/26 14:45 Co-signature as Attending Physician, Brittany Graham MD STAFF ATTESTATION STATEMENT I sd2 was immediately available on-site in the Emergency Department for consultation in the care of the patient. Brittany Graham MD. Disposition Summary: 10/25/21 22:13 Transfer Ordered Transfer Location: [facility] Facility [facility] Reason: Higher level of care jmm Condition: Stable jmm Problem: new jmm Symptoms: have improved jmm Accepting Physician: Dr. Santiago(10/25/21 23:28) ke1 Diagnosis - Suicidal ideations jmm - Lacerations to the extremities jmm - Urinary tract infection jmm Forms: - Medication Reconciliation Form jmm - SBAR form jmm Signatures: Dispatcher [employer] EDGordo Ng PA PA jmm Laurie Molina, RN RN ll1 Ellyn Blanton RN RN ke1 Brittany Graham MD MD sd2 Corrections: (The following items were deleted from the chart) 10/25 23:28 22:13 Dr. Santiago [facility] ke1
--- NOTE | 2021-10-27 12:24 | EKG ---
Test Date: 2021-10-25 Test Time: 15:27:56 [employer]: SHYAM MEASUREMENT RESULTS: Intervals: Rate: 92 NC: 140 QRSD: 92 QT: 364 QTc: 450 [place]: P: 55 NC: 140 QRS: 27 T: 66 INTERPRETIVE STATEMENTS: Sinus rhythm with occasional premature ventricular complexes Otherwise normal ECG Compared to ECG 09/07/2021 22:24:55 Ventricular premature complex(es) now present Electronically Signed On 10-27-21 12:21:48 CDT by [place] Yip
== END 2021-10-25 23:28 ==
LOC: ER 14:24
PROC: 0JQH0ZZ Repair Left Lower Arm Subcutaneous Tissue and Fascia, Open Approach (ICD-10-PCS; principal; 2021-10-25)
PROC: 0JQG0ZZ Repair Right Lower Arm Subcutaneous Tissue and Fascia, Open Approach (ICD-10-PCS; 2021-10-25)
DX: R45.851 Suicidal ideations (principal); S41.112A Laceration without foreign body of left upper arm, initial encounter; S41.111A Laceration without foreign body of right upper arm, initial encounter; N39.0 Urinary tract infection, site not specified; F10.20 Alcohol dependence, uncomplicated; F32.A Depression, unspecified; Z88.8 Allergy status to other drugs, medicaments and biological substances
CPT/HCPCS: 96361; 93005; 85025 ×2; 80048 ×2; 36415; 80320; 80329 ×2; 85610; 80076; 85730; 81003; 80307; 96374; 99285; 87811; 12002; J7120

== ENCOUNTER 2021-11-19 17:53 | Observation (INO) | payer OTHER ==
--- OUTSIDE RECORDS SUMMARY | 2021-11-19 17:58 | XMS REPORT | Continuity of Care Document ---
:1945 Author Organization [facility] t Address [address] [place] [address] Care Team Providers Name Role Phone System, Pcp Not In Primary Care Physician Vaughn Page Attending Clinician Unavailable Radha Ryder Attending Clinician Unavailable Jazmyn Collins Attending Clinician Unavailable [facility] Attending Clinician Unavailable VESNA SOMERS Attending Clinician Unavailable KRISTEN NGUYEN Attending Clinician Unavailable ELVIA FRENCH Attending Clinician Unavailable DIANE GEORGE Attending Clinician Unavailable YNES GUIDRY Attending Clinician Unavailable MD YNES GUIDRY Attending Clinician Unavailnaomi Victoria MD, Julita Sauceda Attending Clinician [phone] [place] REESE Attending Clinician Unavailable Tate Mcdaniel MD Attending Clinician HILLARY POLLARD Attending Clinician Unavailable TATE MCDANIEL Attending Clinician Unavailable LUIS CARLOS PADILLA Attending Clinician Unavailable [email or web address] Admitting Clinician Unavailable MD YNES GUIDRY Admitting Clinician UnavailHILLARY Urban Admitting Clinician Unavailable TATE MCDANIEL Admitting Clinician Unavailable LUIS CARLOS PADILLA Admitting Clinician Unavailable Payers Payer Name Policy Type Policy Number Effective Date Expiration Date Sybil hayes [employer]ET[employer] (MEDICARE [id number] 2021 REPLACEMENT PPO) 00:00:00 MEDICARE PLAN PPO - [id number] AETNA MEDICARE PART A \\T\\ [id number] B - MEDICARE AETNA MEDICARE HMO [id number] 2017 POS PPO 00:00:00 Problems Condition Condition Condition Status Onset Resolution Last Treating Co mments Source Name Details Category Date Date Treatment Clinician Date Bilateral Bilateral Disease Active [facility] temporoman temporoman 6-14 Co llege dibular dibular 00:00: of joint pain joint pain 00 Me dicin e 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 [place] hearing hearing 00:00: 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 Seasonal Seasonal Disease Active [facility] r allergic allergic 11-15 [facility] e rhinitis rhinitis 00:00: of 00 Medicin e Otalgia Otalgia Disease Active [facility] 8-20 [place] 00:00: of 00 Medicin e Nasal Nasal Disease Active [facility] valve valve 820 [place] collapse collapse 00:00: of 00 Medicin e 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 [facility] (posterior (posterior 1-09 Co llege capsular capsular 00:00: of opacificat opacificat 00 Me dicin ion) ion) e Nuclear Nuclear Disease Active [facility] senile senile 08-06 [place] cataract cataract 00:00: of of both of both 00 Medicin eyes eyes e H/O H/O Disease Active [facility] diplopia diplopia 08-06 Colleg e 00:00: of 00 Medicin e Dry eye Dry eye Disease Active [facility] syndrome syndrome 5-11 Colleg e 00:00: of 00 Medicin e Dyspnea on Dyspnea on Disease Active [facility] exertion exertion 07-03 Colleg e 00:00: of 00 Medicin e Anxiety Anxiety Disease Active [facility] 07 College 00:00: of 00 Medicin e Coronary Coronary Disease Active [facility]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 07-03 [place] disease disease 00:00: of involving involving [facility] [place] coronary coronary artery of artery of [place] heart heart without without angina angina pectoris pectoris 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 00:00: of 00 Medicin e Coronary Coronary Disease Active [facility]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 07-03 [place] disease disease 00:00: of involving involving Medi phillip [place] coronary coronary artery of artery of [place] heart heart without without angina angina pectoris pectoris Allergies, Adverse Reactions, Alerts Allergy Allergy Status Severity Reaction(s) Onset Inactive Treating Comm ents Source Name Type Date Date Clinician POTATO Allergy Active N\\T\\V [facility] 827 00:00: 00 Potato Propensi Active [facility] ty to Vomiting 11-22 potatoes Colleg e adverse 00:00: only of reaction 00 Medicin s to e food DIPHENHY Allergy Active Other [facility] DRAMINE 5 00:00: 00 PSEUDOEP Allergy Active Other [facility] HEDRINE 08-18 HCL 00:00: 00 Diphenhy Propensi Active [facility] dramine ty to 08-18 College adverse 00:00: of reaction 00 Medicin s to e drug HYDROXYZ Allergy Active [facility] INE HCL 08-06 00:00: 00 Hydroxyz Propensi Active Other (See Insomnia [facility] ine Hcl ty to Comments) 08-06 Colleg e adverse 00:00: of reaction 00 Medicin s to e drug Hydroxyz Propensi Active [facility] ine ty to College adverse 00:00: of reaction 00 Medicin s to e drug Allergy Propensi Active [facility] Relief ty to College adverse 00:00: of reaction 00 Medicin s to e drug Pseudoep Propensi Active [facility] hedrine ty to College Hcl adverse 00:00: of reaction 00 Medicin s to e drug atarax Adverse Active Info Not Common Reaction Available [facility] Benadryl Adverse Active Info Not Commo n Reaction Available [facility] Social History Social Habit Start Date Stop Date Quantity Comments Source History of tobacco Cigarette Smoker [facility] use of Medicine Exposure to Not sure [facility] SARS-CoV-2 (event) of Med icine Alcohol intake 2021-07-21 2021-07-21 Current [facility] Col lege 00:00:00 00:00:00 non-drinker of of Medicin e alcohol (finding) Cigarettes smoked 2020-01-18 2020-01-18 [facility] current (pack per 00:00:00 00:00:00 of Medi ) - Reported Tobacco use and 2020-01-18 2020-01-18 Never used [facility] llege exposure 00:00:00 00:00:00 of Medicine [birth year] [facility] Co llege 00:00:00 00:00:00 of Medicine Smoking Status Start Date Stop Date Source Ex-smoker 2020-01-18 00:00:00 2020-01-18 00:00:00 [facility] ollegulshan of Medicine Medications Ordered Filled Start Stop Current Ordering Indication Dosage Frequency Signature Comments Components Source Medication Medication Date Date Medication? Clinician (SIG) Name Name ARTIFICIAL Yes Apply to [facility] TEAR OP 07-22 eye. [place] 10:25: of 21 Medicin e Atorvastati Yes 20mg Take 20 mg [facility] n Calcium -26 by mouth Colleg e (LIPITOR 10:25: daily. of OR) 21 Medicin e Albuterol Yes 1{puff} 1-2 Puffs [facility] Sulfate 108 4-26 by [place] (90 Base) 10:25: Inhalation of MCG/ACT 21 route Medicin AEPB every 4 e hours as needed. Loratadine Yes 1{tbl} Take 1 Tab [facility] 10 MG CAPS -26 by mouth Colle ge 10:25: daily. of 21 Medicin e Influenza Yes Fluzone [facility] Vac Split - High-Dose Colle ge High-Dose 10:25: [id number] of 0.5 ML ROSIE 21 (PF) 180 Medi phillip mcg/0.5 mL e intramuscu lar syringe TO BE ADMINISTER ED BY PHARMACIST FOR IMMUNIZATI ON alprazolam Yes .5mg Take 0.5 [place] (XANAX) 0.5 4-26 mg by [place] MG tablet 10:25: mouth two of 21 times Medicin daily. e venlafaxine Yes 75mg Take 75 mg [facility] (EFFEXOR) 26 by mouth Colleg e 75 MG 10:25: daily. of tablet 21 Medicin e fluticasone 2021- No 2{spray 2 Sprays [facility] (FLONASE) 07-22 } by Each [facility] e 50 MCG/ACT 10:25: 00:00 Nostril of nasal spray 03 :00 route Medicin daily. e cycloSPORIN 2021- No 1 drop [place] [facility] E 07-22 into College (RESTASIS) 10:24: 00:00 affected of 0.05 % 57 :00 eye Medicin ophthalmic e emulsion Coenzyme 2021- No Take by [facility] Q10 (CO Q 07-22 mouth. College 10 OR) 10:24: 00:00 of 51 :00 Medicin e Denosumab 2021- No 60mg 60 mg. [facility] (PROLIA) 60 07-21- [place] MG/ML 15:34: 00:00 of injection 10 :00 Medicin e ALPRAZolam 2021- No .5mg Take 0.5 [facility] (XANAX OR) -25 -25 mg by [place] 15:33: 00:00 mouth of 55 :00 daily. Medicin e benzonatate 2021- No as needed. [facility] (TESSALON) -21 07-25 College 200 mg 15:33: 00:00 of capsule 55 :00 Medicin e mirtazapine Yes 7.5mg Take 1 [place] [facility] (REMERON) 4-25 Tablet by [facility] ge 7.5 MG 00:00: mouth of tablet 00 nightly. Medicin e venlafaxine 2020-03- No 75mg Take 1 [place] [facility] (EFFEXOR) 0-14 04-25 Tablet by [facility] 75 MG 00:00: 00:00 mouth of tablet 00 :00 every Medicin morning. e FLUoxetine 2020- No 40mg Take 40 mg [facility] HCl (PROZAC 10-07 by mouth Col lege OR) 11:40: 00:00 daily. of 43 :00 Medicin e busPIRone 0 2020- No 1 tablet [place] [facility] (BUSPAR) 15 10-07 as needed Co llege MG tablet 11:40: 00:00 for of 43 :00 anxiety Medicin e venlafaxine Yes 75mg Take 1 [facility] (EFFEXOR-XR 10-07 capsule by Co llegeriberto ) 75 MG XR 00:00: mouth of capsule 00 daily. Medicin e ARTIFICIAL Yes Apply to [place] TEAR OP 04-30 eye. College 11:18: of 54 Medicin e ALPRAZolam Yes .5mg Take 0.5 [place] [facility] (XANAX OR) 2-02 mg by College 11:18: mouth of 54 daily. Medicin e Coenzyme Yes Take by [facility] Q10 (CO Q 2- mouth. College 10 OR) 11:18: of 54 Medicin e Atorvastati Yes 20mg Take 20 mg [facility] n Calcium 2-02 by mouth Colleg e (LIPITOR 11:18: daily. of OR) 54 Medicin e Albuterol Yes 1{puff} 1-2 Puffs [facility] Sulfate 108 2- by [place] (90 Base) 11:18: Inhalation of MCG/ACT 54 route Medicin AEPB every 4 e hours as needed. Loratadine Yes 1{tbl} Take 1 Tab [facility] (CLARITIN) 2-02 by mouth Colle ge 10 MG CAPS 11:18: daily. of 54 Medicin e fluticasone Yes 2{spray 2 Sprays [facility] (FLONASE) 2-02 } by Each College 50 MCG/ACT 11:18: Nostril of nasal spray 54 route Medicin daily. e benzonatate Yes as needed. [facility] (TESSALON) 2- [place] 200 mg 11:18: of capsule 54 Medicin e Denosumab Yes 60mg 60 mg. [facility] (PROLIA) 60 2-02 College MG/ML 11:18: of injection 54 Medicin e Influenza Yes Fluzone [facility] Vac Split 2-02 High-Dose Colle ge High-Dose 11:18: of 0.5 ML ROSIE 54 (PF) 180 Medi phillip mcg/0.5 mL e intramuscu lar syringe TO BE ADMINISTER ED BY PHARMACIST FOR IMMUNIZATI ON cycloSPORIN Yes 1 drop [facility] E 04-30 into College (RESTASIS) 11:18: affected of 0.05 % 54 eye Medicin ophthalmic e emulsion Masks MISC 2019-03 Yes [id number] 1U 1 Units [facility] 1-20 daily. College 00:00: of 00 Medicin e Masks MISC 2019-03 Yes [id number] 1U 1 Units [facility] 1-20 daily. College 00:00: of 00 Medicin e benzonatate 2019-03 Yes as needed. [facility] (TESSALON) 022 College 200 mg 16:30: of capsule 06 Medicin e Denosumab 2019-03 Yes 60mg 60 mg. [facility] (PROLIA) 60 0-22 College MG/ML 16:30: of injection 06 Medicin e Influenza 2019-03 Yes Fluzone [facility] Vac Split 0- High-Dose Colle ge High-Dose 16:30: of 0.5 ML ROSIE 06 (PF) 180 Medi phillip mcg/0.5 mL e intramuscu lar syringe TO BE ADMINISTER ED BY PHARMACIST FOR IMMUNIZATI ON busPIRone 2019-03 Yes 1 tablet [facility] (BUSPAR) 15 0-22 as needed Col lege MG tablet 16:30: for of 06 anxiety Medicin e cycloSPORIN 2019-03 Yes 1 drop [facility] E 0 into College (RESTASIS) 16:30: affected of 0.05 % 06 eye Medicin ophthalmic e emulsion Tetrahydroz 2019-03 2020- No Apply to [facility] -Dextran-PE 0-01-17 eye. College G-Povid 16:22: 00:00 of (VISINE 29 :00 Medicin ADVANCED e RELIEF) 0.05-0.1-1- 1 % SOLN ARTIFICIAL 2019-03 Yes Apply to [place] [facility] TEAR OP 0-22 eye. College 16:21: of 19 Medicin e ALPRAZolam 2019-03 Yes .5mg Take 0.5 [place] [facility] (XANAX OR) 0-22 mg by College 16:21: mouth of 19 daily. Medicin e FLUoxetine 2019-03 Yes 40mg Take 40 mg [facility] HCl (PROZAC 0-22 by mouth [facility] OR) 16:21: daily. of 19 Medicin e Coenzyme 2019-03 Yes Take by [facility] Q10 (CO Q 0-22 mouth. College 10 OR) 16:21: of 19 Medicin e Atorvastati 2019-03 Yes 20mg Take 20 mg [facility] n Calcium 0-22 by mouth Colleg e (LIPITOR 16:21: daily. of OR) 19 Medicin e Albuterol 2019-03 Yes 1{puff} 1-2 Puffs [facility] Sulfate 108 0-22 by [place] (90 Base) 16:21: Inhalation of MCG/ACT 19 [...] e Specialty 2019-03 2020- No Take by [facility] Vit[facility] 0-22 10-22 mouth. College Products 16:20: 00:00 of (ICAPS 58 :00 Medicin LUTEIN-ZEAX e ANTHIN OR) Atorvastati Atorvastati Yes Jazmyn 1 tablet Common n Calcium n Calcium 8-25 [facility] in evening Spirit 00:00: - [facility] 00 [facility] olopatadine 0 2020- No 1[drp] Place 1 [facility] HCl 5-01 10-22 Drop into College (PATADAY) 00:00: 00:00 both eyes of 0.2 % 00 :00 daily as Medicin ophthalmic needed e solution (itching / allergy). Specialty 2018-03 Yes Take by [facility] Vitamins 0-17 mouth. College Products 18:13: of (ICAPS 14 Medicin LUTEIN-ZEAX e ANTHIN OR) ARTIFICIAL 2018-03 Yes Apply to [place] [facility] TEAR OP 0-17 eye. College 18:13: of 14 Medicin e ALPRAZolam 2018-03 Yes .5mg Take 0.5 [place] [facility] (XANAX OR) 0-17 mg by College 18:13: mouth of 14 daily. Medicin e FLUoxetine 2018-03 Yes 40mg Take 40 mg [facility] HCl (PROZAC 0-17 by mouth [facility] OR) 18:13: daily. of 14 Medicin e Tetrahydroz 2018-03 Yes Apply to [facility] -Dextran-PE 0-17 eye. [place] G-Povid 18:13: of (VISINE 14 Medicin ADVANCED e RELIEF) 0.05-0.1-1- 1 % SOLN Coenzyme 2018-03 Yes Take by [facility] Q10 (CO Q 0-17 mouth. College 10 OR) 18:13: of 14 Medicin e Atorvastati 2018-03 Yes 20mg Take 20 mg [facility] n Calcium 0-17 by mouth Colleg e (LIPITOR 18:13: daily. of OR) 14 Medicin e Albuterol 2018-03 Yes 1{puff} 1-2 Puffs [facility] Sulfate 108 0-17 by College (90 Base) [...] emulsion cycloSPORIN 2021- No 1[drp] Place 1 [facility] E 3-11 04-25 Drop into College (RESTASIS) 00:00: 00:00 both eyes o f 0.05 % 00 :00 two times Medicin ophthalmic daily. e emulsion montelukast Yes 10mg Take 1 Tab [facility] (SINGULAIR) -29 by mouth [facility] 10 MG 00:00: daily. of tablet 00 Medicin e montelukast Yes 10mg Take 1 Tab [facility] (SINGULAIR) - by mouth [facility] 10 MG 00:00: daily. of tablet 00 Medicin e montelukast Yes 10mg Take 1 Tab [facility] (SINGULAIR) - by mouth [facility] 10 MG 00:00: daily. of tablet 00 Medicin e montelukast 2021- No 10mg Take 1 Tab [facility] (SINGULAIR) 04-26- by mouth Col lege 10 MG 00:00: 00:00 daily. of tablet 00 :00 Medicin e cetirizine, Yes [id number] 10mg Take 1 Tab [facility] ZYRTEC, 10-28 by mouth [place] (ZYRTEC 00:00: every of ALLERGY) 10 00 evening. Medi phillip MG tablet e cetirizine, 2020- No [id number] 10mg Take 1 Tab [facility] ZYRTEC, 10-28 by mouth [place] (ZYRTEC 00:00: 00:00 every of ALLERGY) 10 00 :00 evening. Medi phillip MG tablet e oxymetazoli Yes 2{spray 2 Sprays [facility] ne (QC 10-30 } by Nasal [place] NASAL 00:00: route two of RELIEF 00 times Medicin SINUS) 0.05 daily. e % nasal spray olopatadine Yes 1[drp] Place 1 [facility] HCl 8-19 Drop into [place] () 00:00: both eyes of 0.2 % 00 as needed Medicin ophthalmic (Itchy e solution Eyes). olopatadine Yes 1[drp] Place 1 [facility] HCl 8-19 Drop into [place] () 00:00: both eyes of 0.2 % 00 as needed Medicin ophthalmic (Itchy e solution Eyes). olopatadine Yes 1[drp] Place 1 [facility] HCl 8-19 Drop into [place] () 00:00: both eyes of 0.2 % 00 as needed Medicin ophthalmic (Itchy e solution Eyes). olopatadine Yes 1[drp] Place 1 [facility] HCl 8-19 Drop into College (PATADA) 00:00: both eyes of 0.2 % 00 as needed Medicin ophthalmic (Itchy e solution Eyes). Albuterol Albuterol Yes Jazmyn 2 puffs as Common Sulfate Sulfate [facility] needed Sp joanne - [facility] Restasis Restasis Yes Jazmyn 1 drop Comm on [facility] into Spirit affected - [facility]I eye [facility] Singulair Singulair Yes Jazmyn 1 tablet Common Mill[facility] Prolensa Prolensa Yes Jazmyn 1 drop Comm on [facility] into Spirit affected - [facility] eye [facility] GenTeal GenTeal Yes Jazmyn 1 drop as Com mon [facility] needed [facility] Claritin Claritin Yes Jazmyn 1 tablet Co mmon [facility] Fluoxetine Fluoxetine Yes Jazmyn 1 capsule Common [facility] Coenzyme Coenzyme Yes Jazmyn 1 tablet Co mmon Q10 Q10 [facility] Pataday Pataday Yes Jazmyn as Common [facility] directed [facility] Visine Visine Yes Jazmyn 1 drop Common [facility] [employer] [facility] into Sp joanne Relief Relief affected - [facility]I eye as [facility] QC Nasal QC Nasal Yes Jazmyn not Common Relief Relief [facility] defined Spi rit Sinus Sinus [facility] Artificial Artificial Yes Jazmyn not Co mmon Tear Tear [facility] defined [facility] Xanax Xanax Yes Jazmyn 1 tablet Common Millender [facility] Prozac Prozac Yes Jazmyn 1 capsule Commo n Millender [facility] BusPIRone BusPIRone Yes Jazmyn 1 tablet Common HCl HCl [facility] as needed Spiri t for - CHI anxiety [facility] Vital Signs Vital Name Observation Time Observation Value Comments Source Systolic blood 2021-07-21 20:34:00 125 mm[Hg] [facility] pressure Medicine Diastolic blood 2021-07-21 20:34:00 72 mm[Hg] [facility] pressure Medicine Heart rate 2021-07-21 20:34:00 96 /min [facility] Respiratory rate 2021-07-21 20:34:00 16 /min [facility] Body weight 2021-07-21 20:34:00 70.035 kg [facility] C ollege of Medicine BMI 2021-07-21 20:34:00 27.35 kg/m2 [facility] C ollege of Medicine Systolic blood 2020-10-07 15:40:00 126 mm[Hg] [facility] pressure Medicine Diastolic blood 2020-10-07 15:40:00 83 mm[Hg] [facility] Medicine Heart rate 2020-10-07 15:40:00 118 /min [facility] ollege of Medicine Respiratory rate 2020-10-07 15:40:00 17 /min [facility] Body weight 2020-10-07 15:40:00 75.887 kg [facility] ol[facility] of Medicine BMI 2020-10-07 15:40:00 29.64 kg/m2 [facility] ol[facility] of Medicine Heart rate 2020-01-18 16:29:00 70 /min [facility] ol[facility] of Medicine Body temperature 2020-01-18 16:29:00 36.67 Christine [facility] Body height 2020-01-18 16:29:00 160 cm [facility] ol[facility] of Medicine Body weight 2020-01-18 16:29:00 73.483 kg [facility] ol[facility] of Medicine BMI 2020-01-18 16:29:00 28.70 kg/m2 [facility] ol[facility] of Medicine Heart rate 2020-01-18 16:29:00 70 /min [facility] ol[facility] of Medicine Body temperature 2020-01-18 16:29:00 36.67 Christine [facility] Body height 2020-01-18 16:29:00 160 cm [facility] C ollege of Medicine Body weight 2020-01-18 16:29:00 73.483 kg [facility] ollege of Medicine BMI 2020-01-18 16:29:00 28.70 kg/m2 [facility] ol[facility] of Medicine Systolic blood 2019-01-12 18:00:00 122 mm[Hg] [facility] pressure Medicine Diastolic blood 2019-01-12 18:00:00 58 mm[Hg] [facility] Medicine Heart rate 2019-01-12 18:00:00 61 /min [facility] Body temperature 2019-01-12 18:00:00 36.61 Christine [facility] Body height 2019-01-12 18:00:00 [facility] Body weight 2019-01-12 18:00:00 72.757 kg [facility] BMI 2019-01-12 18:00:00 28.41 kg/m2 [facility] Systolic blood 2019-01-12 18:00:00 122 mm[Hg] [facility] Medicine Diastolic blood 2019-01-12 18:00:00 58 mm[Hg] [facility] Heart rate 2019-01-12 18:00:00 61 /min [facility] Body temperature 2019-01-12 18:00:00 36.61 Christine [facility] Body height 2019-01-12 18:00:00 160 cm [facility] Body weight 2019-01-12 18:00:00 72.757 kg [facility] BMI 2019-01-12 18:00:00 28.41 kg/m2 [facility] Procedures This patient has no known procedures. Plan of Care Planned Activity Planned Date Details Comments Source Future Scheduled 2021-07-22 Screening for [facility] Col lege of Test 08:49:16 malignant neoplasm of Medici ne colon (procedure) [code = 943099958] Future Scheduled 2021-07-22 Screening for [facility] Col lege of Test 08:49:16 malignant neoplasm of Medici ne breast (procedure) [code = 077529714] Future Scheduled 2021-07-22 TETANUS SHOT (ADULT) [facility] 08:49:16 [code = TETANUS SHOT Medicin e (ADULT)] Future Scheduled 2021-07-22 BMI FOLLOW UP PLAN [facility] Test 08:49:16 [code = BMI FOLLOW UP Medici ne PLAN] Future Scheduled 2021-07-22 Hepatitis C screening [facility] 08:49:16 (procedure) [code = Medicine [id number]] Future Scheduled 2021-07-22 ZOSTER VACCINE (1 of [facility] of Test 08:49:16 2) [code = ZOSTER Medicine VACCINE (1 of 2)] Future Scheduled 2021-07-22 FALL SCREEN [code = [facility] of Test 08:49:16 FALL SCREEN] Medicine Future Scheduled 2021-07-22 Screening for [facility] Col lege of Test 08:49:16 osteoporosis Medicine (procedure) [code = [id number]] Future Scheduled 2021-07-22 Pneumococcal 65+ (1 of B [facility] of Test 08:49:16 1 - PPSV23) [code = Medicine Pneumococcal 65+ (1 of 1 - PPSV23)] Future Scheduled 2021-07-22 FLU VACCINE > 6 MONTHS B [facility] of Test 08:49:16 [code = FLU VACCINE > Medici ne 6 MONTHS] Future Scheduled 2021-07-22 MEDICARE AWV (Initial) B [facility] of Test 08:49:16 [code = MEDICARE AWV Medicin e (Initial)] Future Scheduled 2020-10-08 Screening for [facility] Col lege of Test 17:35:43 malignant neoplasm of Medici ne colon (procedure) [code = [id number]] Future Scheduled 2020-10-08 Screening for [facility] Col lege of Test 17:35:43 malignant neoplasm of Medici ne breast (procedure) [code = 232694961] Future Scheduled 2020-10-08 TETANUS SHOT (ADULT) [facility] of Test 17:35:43 [code = TETANUS SHOT Medicin e (ADULT)] Future Scheduled 2020-10-08 BMI FOLLOW UP PLAN [facility] of Test 17:35:43 [code = BMI FOLLOW UP Medici ne PLAN] Future Scheduled 2020-10-08 Hepatitis C screening [facility] of Test 17:35:43 (procedure) [code = Medicine [id number]] Future Scheduled 2020-10-08 ZOSTER VACCINE (1 of [facility] of Test 17:35:43 2) [code = ZOSTER Medicine VACCINE (1 of 2)] Future Scheduled 2020-10-08 Screening for [facility] Col lege of Test 17:35:43 osteoporosis Medicine (procedure) [code = 511642956] Future Scheduled 2020-10-08 PNEUMOVAX >=65 [facility] Co llege of Test 17:35:43 (PPSV23) [code = Medicine PNEUMOVAX >=65 (PPSV23)] Future Scheduled 2020-10-08 MEDICARE AWV (Initial) B [facility] of Test 17:35:43 [code = MEDICARE AWV Medicin e (Initial)] Future Scheduled 2020-10-08 FLU VACCINE > 6 MONTHS B [facility] of Test 17:35:43 [code = FLU VACCINE > Medici ne 6 MONTHS] Future Scheduled 2020-10-08 FALL SCREEN [code = [facility] of Test 17:35:43 FALL SCREEN] Medicine Future Scheduled COLON CANCER [facility] ege of Test SCREENING: COLONOSCOPY Medic ine [code = COLON CANCER SCREENING: COLONOSCOPY] Future Scheduled MAMMOGRAM ANNUAL [code B [facility] of Test = MAMMOGRAM ANNUAL] Medicine Future Scheduled MEDICARE AWV [code = [facility] College of Test MEDICARE AWV] Medicine Future Scheduled TETANUS SHOT (ADULT) [facility] of Test [code = TETANUS SHOT Medicin e (ADULT)] Future Scheduled BMI FOLLOW UP PLAN [place] [facility] [code = BMI FOLLOW UP Medici ne PLAN] Future Scheduled HEPATITIS C SCREENING [facility] [code = HEPATITIS C Medicine SCREENING] Future Scheduled FALL SCREEN [code = [facility] FALL SCREEN] Medicine Future Scheduled PNEUMOVAX >=65 [facility] Test (PPSV23) [code = Medicine PNEUMOVAX >=65 (PPSV23)] Future Scheduled PREVNAR >= 65 (PCV13) [facility] [code = PREVNAR >= 65 Medici ne (PCV13)] Future Scheduled FLU VACCINE > 6 MONTHS B [facility] [code = FLU VACCINE > Medici ne 6 MONTHS] Future Scheduled COLON CANCER [facility] of Test SCREENING: COLONOSCOPY Medic ine [code = COLON CANCER SCREENING: COLONOSCOPY] Future Scheduled MAMMOGRAM ANNUAL [code B [facility] = MAMMOGRAM ANNUAL] Medicine Future Scheduled TETANUS SHOT (ADULT) [facility] [code = TETANUS SHOT Medicin e (ADULT)] Future Scheduled BMI FOLLOW UP PLAN [facility] [code = BMI FOLLOW UP Medici ne PLAN] Future Scheduled HEPATITIS C SCREENING [facility] Test [code = HEPATITIS C Medicine SCREENING] Future Scheduled ZOSTER VACCINE (1 of [facility] 2) [code = ZOSTER Medicine VACCINE (1 of 2)] Future Scheduled OSTEOPOROSIS SCREENING B [facility] [code = OSTEOPOROSIS Medicin e SCREENING] Future Scheduled PNEUMOVAX >=65 [facility] (PPSV23) [code = Medicine PNEUMOVAX >=65 (PPSV23)] Future Scheduled MEDICARE AWV (Initial) B [facility] [code = MEDICARE AWV Medicin e (Initial)] Future Scheduled FLU VACCINE > 6 MONTHS B [facility] [code = FLU VACCINE > Medici ne 6 MONTHS] Future Scheduled FALL SCREEN [code = [facility] Test FALL SCREEN] Medicine Encounters Start End Encounter Admission Attending Care Care Encounter Source Date/Time Date/Time Type Type Clinicians Facility Department ID 2021-11-17 Outpatient Page, STLMLC STLMLC [id number] Common 14:36:00 [facility]n [facility] 2021-11-05 Outpatient Page, STLMLC STLMLC [id number] Common 10:20:00 [facility] 2021-10-14 Outpatient Page, STLMLC STLMLC [id number] Common 15:58:01 [facility] 2021-10-13 Outpatient Page, STLMLC STLMLC [id number] Common 14:35:00 [facility] 2021-05-22 Outpatient Page, STLMLC STLMLC [id number] Common 08:03:01 [facility] 2021-04-25 Outpatient Page, STLMLC STLMLC [id number] Common 08:26:00 [facility] 2021-04-23 Outpatient Page, STLMLC STLMLC [id number] Common 13:09:18 [facility] 2021-04-23 Outpatient STLMLC STLMLC [id number] Common 13:08:38 [id number] [facility] 2021-04-23 Outpatient Ryder, STLMLC STLMLC [id number] Common 12:56:09 Avnee 81235 [facility] 2021-04-23 Outpatient STLMLC STLMLC [id number] Common 12:32:45 [id number] [facility] 2021-04-23 Outpatient STLMLC STLMLC [id number] Common 12:25:33 73515 [facility] 2021-04-23 Outpatient Millender, STLMLC STLMLC [id number] Common 11:40:31 Jazmyn [id number] [facility] 2021-04-23 Outpatient Millender, STLMLC STLMLC [id number] Common 11:16:52 Jazmyn [id number] [facility] 2021-04-23 Outpatient Millender, STLMLC STLMLC [id number] Common 11:05:03 Jazmyn [id number] [facility] 2021-04-23 Outpatient Millender, STLMLC STLMLC [id number] Common 11:04:30 Jazmyn [id number] [facility] 2021-04-23 Outpatient Millender, STLMLC STLMLC [id number] Common 11:03:37 Jazmyn [id number] [facility] 2021-04-23 Outpatient Millender, STLMLC STLMLC [id number] Common 11:02:15 Jazmyn [id number] [facility] 2021-11-18 2021-11-18 ambulatory STLMLC STLMLC [id number] Common 00:00:00 00:00:00 [facility] 2021-11-18 2021-11-18 ambulatory STLMLC STLMLC [id number] Common 00:00:00 00:00:00 [facility] 2021-11-10 2021-11-10 Outpatient GC_SWHAOMC_ PRIV PRIV [id number] [facility] 00:00:00 00:00:00 Pito_Luis M [id number] [facility] 2021-11-05 2021-11-05 ambulatory STLMLC STLMLC [id number] Common 00:00:00 00:00:00 [facility] 2021-10-23 2021-10-23 ambulatory STLMLC STLMLC [id number] Common 00:00:00 00:00:00 [facility] 2021-10-20 2021-10-20 ambulatory STLMLC STLMLC [id number] Common 00:00:00 00:00:00 [facility] 2021-10-15 2021-10-15 ambulatory STLMLC STLMLC [id number] Common 00:00:00 00:00:00 [facility] 2021-10-10 2021-10-10 ambulatory STLMLC STLMLC [id number] Common 00:00:00 00:00:00 [facility] 2021-10-10 2021-10-10 ambulatory STLMLC STLMLC [id number] Common 00:00:00 00:00:00 [facility] 2021-08-28 2021-08-28 ambulatory STLMLC STLMLC [id number] Common 00:00:00 00:00:00 [facility] 2021-08-28 2021-08-28 ambulatory STLMLC STLMLC [id number] Common 00:00:00 00:00:00 [facility] 2021-08-22 2021-08-22 Outpatient KARBOWNICZA [facility] [id number] [facility] 16:13:33 16:16:25 VESNA Aponte Col mary alicee [facility] 2021-08-06 2021-08-06 ambulatory STLMLC STLMLC [id number] Common 00:00:00 00:00:00 [facility] 2021-07-28 2021-07-28 ambulatory STLMLC STLMLC [id number] Common 00:00:00 00:00:00 [facility] 2021-07-21 2021-07-21 Office KARBOWNICZA [facility] [id number] [facility] 15:24:49 16:30:25 Visit VESNA Aponte AMBULATOR 350.1.13.21 College Y 0.2.7.2.686 of [id number] [place] [address] e 2021-07-18 2021-07-18 ambulatory STLMLC STLMLC [id number] Common 00:00:00 00:00:00 [facility] 2021-07-15 2021-07-15 ambulatory STLMLC STLMLC [id number] Common 00:00:00 00:00:00 [facility] 2021-06-25 2021-06-25 ambulatory STLMLC STLMLC [id number] Common 00:00:00 00:00:00 [facility] 2021-06-25 2021-06-25 ambulatory STLMLC STLMLC [id number] Common 00:00:00 00:00:00 [facility] 2021-06-23 2021-06-23 ambulatory STLMLC STLMLC [id number] Common 00:00:00 00:00:00 [facility] 2021-06-10 2021-06-10 Outpatient NASIM NGUYEN [facility] [id number] [facility] 13:01:38 14:34:23 KRISTEN Dawson Medicin e 2021-05-20 2021-05-20 ambulatory STLMLC STLMLC [id number] Common 00:00:00 00:00:00 [facility] 2021-04-23 2021-04-23 ambulatory STLMLC STLMLC [id number] Common 00:00:00 00:00:00 [facility] 2021-03-19 2021-03-19 ambulatory STLMLC STLMLC [id number] Common 00:00:00 00:00:00 [facility] 2021-01-30 2021-01-30 ambulatory STLMLC STLMLC [id number] Common 00:00:00 00:00:00 [facility] 2021-01-16 2021-01-16 Outpatient GC_SWHAOMC_ PRIV PRIV [id number] [facility] 00:00:00 00:00:00 Gullett_J [id number] [facility] 2021-01-14 2021-01-14 Outpatient ELVIA FRENCH [facility] [id number] [facility] 00:00:00 00:00:[address] 2021-01-13 2021-01-13 Outpatient DORIS [facility] [id number] [place] 00:00:00 00:00:00 DIANE [address] 2020-12-26 2020-12-26 Outpatient CHAO, [facility] [id number] [place] 00:00:00 00:00:00 YNES 125 [facility] 2020-12-24 2020-12-24 Outpatient PETAK, [facility] [id number] [place] 00:00:00 00:00:00 DIANE 120 Method i 2020-12-24 2020-12-24 Outpatient PETAK, [facility] [id number] [facility] 00:00:00 00:00:00 DIANE 324 Method i 2020-12-24 2020-12-24 Outpatient CHAO, [facility] [id number] [facility] 00:00:00 00:00:00 YNES 430 [facility] di 2020-11-18 2020-11-18 Outpatient STLMLC STLMLC [id number] Common 00:00:00 00:00:00 [facility] 2020-11-14 2020-11-14 Outpatient STLMLC STLMLC [id number] Common 00:00:00 00:00:00 [facility] 2020-11-14 2020-11-14 Outpatient STLMLC STLMLC [id number] Common 00:00:00 00:00:00 [facility] 2020-10-07 2020-10-07 Office NASIM [place] [id number] [facility] 10:39:15 11:47:56 Visit Julita AMBULATOR 350.1.13.21 College Komal Y 0.2.7.2.686 [id number] [facility] phillip 390 e 2020-08-27 2020-08-27 Outpatient STLMLC STLMLC [id number] Common 00:00:00 00:00:00 [facility] 2020-04-30 2020-04-30 Outpatient AIDAN HESS [facility] [id number] [facility] 00:00:00 00:00:00 PENALOZA 2020-02-23 2020-02-23 Outpatient JAKUB REESE [facility] [id number] [facility] 00:00:00 00:00:00 PENALOZA 2020-01-18 2020-01-18 Office NAISM Mcdaniel [id number] 10:44:34 14:48:49 Visit Tate AMBULATOR 350.1.13.21 Y 0.2.7.2.686 [id number] 2020-01-18 2020-01-18 Office NASIM Mcdaniel [id number] [facility] 10:44:34 14:48:49 Visit Tate AMBULATOR 350.1.13.21 College Y 0.2.7.2.686 [id number] [place] [id number] e 2020-01-18 2020-01-18 Outpatient JAKUB POLLARD, [facility] [id number] [facility] 00:00:00 00:00:00 HILLARY 2019-11-21 2019-11-21 [facility] [id number] Common 09:40:00 09:40:[address] [facility] [address] [facility] 2019-07-20 2019-07-20 Outpatient SLE SLE [id number] [facility] 00:00:00 00:00:00 [id number] 2019-06-08 2019-06-08 [facility] [id number] Common 08:40:00 08:40:00 [facility] [address] [facility] 2019-05-16 2019-05-16 Out[facility] [id number] Common 09:49:00 09:49:00 [facility] [address] [facility] 2019-05-01 2019-05-01 Out[facility] [id number] Common 16:55:00 16:55:[address] [facility] [address] [facility] 2019-05-01 2019-05-01 Out[facility] [id number] Common 11:30:00 11:30:00 [facility] [address] [facility] 2019-03-20 2019-03-20 Outpatient [facility] [id number] [facility] 00:00:00 00:00:00 Jeanne 2019-01-17 2019-01-17 Out[facility] [id number] Common 08:40:00 08:40:00 [facility] 2019-01-12 2019-01-12 Office NASIM Mcdaniel [id number] 11:14:06 15:02:38 Visit Tate AMBULATOR 350.1.13.21 Y 0.2.7.2.686 [id number] 2019-01-12 2019-01-12 Office NASIM Mcdaniel [id number] [facility] 11:14:06 15:02:38 Visit Tate AMBULATOR 350.1.13.21 College Y 0.2.7.2.[id number] [facility] 840 e 2018-12-22 2018-12-22 Out[facility] [id number] Common 16:20:00 16:20:00 [facility] 2018-08-12 2018-08-12 Out[facility] [id number] Common 09:00:00 09:00:00 [facility] Results Test Description Test Time Test Comments Results Result Comments Source SARS-CoV-2 (COVID-19) RNA [Presence] in Respiratory sp ecimen by 2020-12-24 15:19:53 CHRISTIANO with probe detection Test Item Value Reference Range Interpretation Comme nts SARS-CoV-2 (COVID-19) RNA [Presence] in Respiratory Not detected No t-Detected specimen by CHRISTIANO with probe detection (test code = 49601-8) Whether patient is employed in a healthcare setting (test code = 11685-3) Whether the patient has symptoms related to condition of interest (test code = 43993-4) Patient was hospitalized because of this condition (test code = 22942-0) Whether the patient was admitted to intensive care unit (ICU) for condition of interest (test code = 91327-4) Whether patient resides in a congregate care setting (test code = 47712-3) RAD, CHEST, 2 [id number] 11:05:00Pa and LateralReason for Exam:->S/P plication of diaphragm [facility] : 1945 Sex: FFINALREPORT EXAMINATION: PA and lateral views of the chest. COMPARISON: February CLINICAL HISTORY: Diaphragm plication DISCUSSION: Lines/tubes: None. Lungs: The lungs are hypoinflated with elevated left hemidiaphragm. Pleura: No pleural effusion or pneumothorax. Heart and mediastinum: Rightward tracheal deviation. The left heart border is obscured. Bones and soft tissues: No acute bony abnormalities. Degenerative changes in the thoracic spine IMPRESSION: Volume loss in the left lung with elevated hemidiaphragm Signed: Braeden Edwards Verified Date/Time: 01/18/2020 11:05:09 Reading Location: [employer] Reading Room [address] [place] [address] CT, CHEST, WITHOUT IV [id number] 14:14:00 Addendum BeginsREPORT STATUS:A Indication: Shortness of breath Signed: Angela Logan MDRowenort Verified Date/Time: 03/16/2018 14:14:34 Reading Location: [employer] Reading Room [address] [place], [place] [id number] EndsFINAL REPORT EXAM: CT Chest WITHOUT contrast INDICATION: r94. 2,r93.89,r05 COMPARISON: No prior CT for comparison TECHNIQUE: [...] are chronic in appearance. Bones and Soft T issues: Degenerative changes. IMPRESSION: 1.Scattered geographic groundglass opacities [...] friction phenomenon. 3.Hepatic steatosis. Signed: Angela Logan [facility] Verified Date/Time: 03/16/2018 14:06:33 Reading Location: [facility] Reading Room [address] [place] [address] U/S, [id number] 14:02:00S/p left hemidiaphragm plication on 12/27/2017. Left pleural effusion noted on post-op xray.Laterality?->LeftReason for Exam:->left pleural effusionFINAL REPORT PROCEDURE: Ultrasound-guided thoracentesis INDICATION: [id number]-bvuuqffh with left pleural effusion. DESCRIPTION: After obtaining informed written consent, ultrasound scan showed pleural effusion on the left. The overlying skin was prepped and draped in the usual, sterile fashion and local 1% lidocaine anesthesia was administered. A 4 Tamazight catheter was advanced into the pleural cavity and 400 cc of serosanguineous fluid was removed. The catheter was removed without immediate complication. Samples were sent to the lab for storage. IMPRESSION:Uncomplicated ultrasound-guided left thoracentesis with 400 cc fluid removed. Signed: Aden Love MDReport Verified Date/Time: 01/18/2018 14:02:44 Reading Location: [facility] P006J Ultrasound Reading Room RAD, CHEST, 1 VIEW, NON [id number] 12:46:00Reason for exam:->s/p Thoracentesispt. in u/s #3Reason for exam:->LEFTShould this be performedat the bedside?->YesFINAL REPORT Chest one view. Clinical history: s/p ThoracentesisLEFT Comparison: December 30, 2017 Discussion: A frontal chest is provided. Cardiomediastinal contours are unchanged. There is left basilar atelectasis or consolidation, probable small residual left effusion. No pneumoth orax. No evidence of gina pulmonary edema. Right lung is grossly clear. Signed: Priti Gomez Verified Date/Time: 01/18/2018 12:46:35 Reading Location: [facility] C013W Consult Reading Room [id number] 10:04:00 Test Item Value Reference Range Interpretation Comments PROTIME (BEAKER) (test code = 15.1 seconds 11.7-14.7 H 759) INR (BEAKER) (test code = 370) 1.2 <=5.9 PARTIAL THROMBOPLASTIN TIME 27.0 seconds 22.5-36.0 (BEAKER) (test code = 760) RECOMMENDED COUMADIN/WARFARIN INR THERAPY RANGESSTANDARD DOSE: 2.0 - 3.0 Includes: PROPHYLAXIS for venous thrombosis, systemic embolization; TREATMENT for venous thrombosis and/or pulmonary embolus.HIGH RISK: Target INR is 2.5-3.5 for patients with mechanical heart valves.PLATELET [id number] 09:44:00 Test Item Value Reference Range Interpretation Comments PLATELET COUNT (BEAKER) (test 254 K/CU MM 150-450 code = 756) AFB CULTURE + [id number] 16:58:00 Test Item Value Reference Range Interpretation Comments CULTURE (BEAKER) (test No acid-fast bacilli code = 1095) isolated in 42 days AFB SMEAR (BEAKER) No acid fast bacilli (test code = 994) seen RAD, CHEST, 1 VIEW, NON [id number] 16:14:00Reason for exam:->s/p chest tube removalShould this be performed at the bedside?->YesFINAL REPORT Chest one view INDICATION: Chest tube removal COMPARISON: 12/30/2017 IMPRESSION: The small left pneumothorax is stable post pigtail pleural catheter removal. There is pleural thickening and probable small effusion. Residual pneumomediastinum and extensive bilateral subcutaneous emphysema are stable. The cardiomediastinal contours are partially obscured but stable. Low lung volumes are seen with pulmonary vascular congestion and bibasilar and right perihilar opacitiesthat could indicate atelectasis. Pneumonitis should be excluded clinically. A small right pleural effusion is suspected. Signed: Jodie Cesar [facility] Verified Date/Time: 12/30/2017 16:14:56 Reading Location: [address] Consult Reading Room Electronically signed by: JODIE CESAR M.D.on 12/30/2017 04:14 PMRAD, CHEST, 1 VIEW, NON [id number] 07:19:00Reason for exam:->evaluate for left pneumothoraxShould this be performed at the bedside?->YesFINAL REPORT Chest one view INDICATION: Left pneumothorax COMPARISON: 12/29/2017IMPRESSION: The small left pneumothorax has decreased with a pigtail pleural catheter in place. There is pleural thickening and probable small effusion. Residual pneumomediastinum and extensive bilateral subcutaneous emphysema are also decreased. The cardiomediastinal contours are partially obscured but stable. Lung volumes have decreased with pulmonary vascular congestion and bibasilar opacities that may reflect atelectasis. Pneumonitis should be excluded clinically. A small right pleural effusion may be present. Signed: Jodie Cesar MDReport Verified Date/Time: 12/30/2017 07:19:06 ReadingLocation: [facility] Reading Room [id number] 04:54:00 Test Item Value Reference Range Interpretation Comments MAGNESIUM (BEAKER) (test code = 2.0 mg/dL 1.6-2.6 627) BASIC METABOLIC [id number] 04:54:00 Test Item Value Reference Range Interpretation [...] 697) EGFR (BEAKER) (test 87 mL/min/1.73 ESTIMA ASAD GFR IS code = 1092) sq m NOT ACCURATE CREATININE CLEARANCE IN PREDICTING GLOMERULAR FILTRATION RATE . ESTIMATED GFR I S NOT APPLICABLE FOR DIALYSIS PATIEN TS. CBC W/PLT COUNT & AUTO [id number] 04:40:00 Test Item Value Reference Range Interpretation [...] = 2801) RAD, CHEST, 1 VIEW, NON [id number] 08:09:00Reason for exam:->evaluate for left pneumothoraxShould this be performed at the bedside?->YesFINAL REPORT Chest one view INDICATION: Left pneumothorax COMPARISON: 12/28/2017IMPRESSION: A small volume left pneumothorax is decreased with apical pleural catheter in place. There is pleural thickening and probable effusion. Residual pneumomediastinum and extensive bilateral subcutaneous emphysema are stable. The cardiomediastinal contours are stable. Pulmonary vascular congestion has regressed. Residual bibasilar opacities may reflect atelectasis. Pneumonitis should be excluded clinically. Signed: Jodie Cesar MDReport Verified Date/Time: 12/29/2017 08:09:18 ReadingLocation: [facility] Reading Room [id number] 07:06:00 Test Item Value Reference Range Interpretation Comments MAGNESIUM (BEAKER) (test code = 2.0 mg/dL 1.6-2.6 627) BASIC METABOLIC [id number] 07:06:00 Test Item Value Reference Range Interpretation [...] 697) EGFR (BEAKER) (test 82 mL/min/1.73 ESTIMA ASAD GFR IS code = 1092) sq m NOT ACCURATE CREATININE CLEARANCE IN PREDICTING GLOMERULAR FILTRATION RATE . ESTIMATED GFR I S NOT APPLICABLE FOR DIALYSIS PATIEN TS. CBC W/PLT COUNT & AUTO [id number] 06:43:00 Test Item Value Reference Range Interpretation [...] = 2801) RAD, CHEST, 1 VIEW, NON [id number] 07:08:00Reason for exam:->line placement Should this be [...] is atherosclerotic. There is pneumomediastinum. There is milddiffuse interstitial prominence. There are bibasilar linear and patchy opacities which may representatelectasis and/or pneumonia. There is no definite pleural effusion. There is diffuse subcutaneous emphysema in the bilateral chest huber and lower neck. Signed: Randall Nevarezeport Verified Date/Time: 12/28/2017 07:08:18 Reading Location: [facility] C013Y CT Body Reading Room [id number] 05:04:00 Test Item Value Reference Range Interpretation Comments MAGNESIUM (BEAKER) (test code = 2.6 mg/dL 1.6-2.6 627) BASIC METABOLIC [id number] 05:04:00 Test Item Value Reference Range Interpretation [...] 697) EGFR (BEAKER) (test 79 mL/min/1.73 ESTIMA ASAD GFR IS code = 1092) sq m NOT ACCURATE CREATININE CLEARANCE IN PREDICTING GLOMERULAR FILTRATION RATE . ESTIMATED GFR I S NOT APPLICABLE FOR DIALYSIS PATIEN TS. CBC W/PLT COUNT & AUTO [id number] 04:51:00 Test Item Value Reference Range Interpretation [...] 0-1 PERCENT (BEAKER) (test code = 2801) [id number] 00:20:00 Test Item Value Reference Range Interpretation Comments POTASSIUM (BEAKER) (test code = 3.5 meq/L 3.5-5.1 379) [id number] 22:31:00 Test Item Value Reference Range Interpretation Comments MAGNESIUM (BEAKER) (test code = 2.5 mg/dL 1.6-2.6 627) RAD, CHEST, 1 VIEW, NON [id number] 21:12:00Reason for exam:- >pneumothoraxShould this be performed at the bedside?->YesFINAL REPORT Chest one view. Clinical history: pneumothorax Comparison: Chest radiograph 12/27/2017, 3:24 PM. Technique: A single frontal view of the chest was obtained. Findings/impression:There is a pigtail chest catheter with tip in the left lung base. The cardiomediastinal contours are stable. There is a small left basilar pneumothorax. There is pneumomediastinum. There are patchy and linear opacities in bilateral lower lobes, left greater than right, which may represent atelectasis and/or pneumonia. There is no definite pleural effusion.There is diffuse subcutaneous emphysema and the bilateral lower neck and chest huber.There is gaseous distention of the stomach. Signed: Randall Nevarez MDReport Verified Date/Time: 12/27/2017 21:12:36 Reading Location: [facility] C013Y CT BodyReading Room RAD, CHEST, 1 VIEW, NON [id number] 16:22:00Reason for exam:->Evaluate for left pneumothoraxShould this be performed at the bedside?->YesFINAL REPORT EXAM: Frontal chest radiograph HISTORY PROVIDED: Evaluate for leftpneumothorax COMPARISON: 12/22/2017 IMPRESSION:A pigtail catheter projects over the left lung base. There is a moderate left pneumothorax with up to 3.8 cm of pleural separation. This was reported to the patient's nurse, Josselin at 4:18 PM on 12/27/2017 and she will alert the clinical team. There is extensive subcutaneous emphysema which limits evaluation. A small right pleural effusion is noted and there may be a small left pleural effusion. Bibasilar opacities likely represent atelectasis, although pneumonitis should be excluded clinically. The cardiac silhouette is normal in size. The thoracic aorta is tortuous and demonstrates atherosclerotic calcification. No acute osseous abnormality. Signed: Yenifer Thompson MDReport Verified Date/Time: 12/27/2017 16:22:10 Reading Location: [facility] Reading Room [id number] 15:21:00 Test Item Value Reference Range Interpretation Comments MAGNESIUM (BEAKER) (test code = 1.8 mg/dL 1.6-2.6 627) BASIC METABOLIC [id number] 15:21:00 Test Item Value Reference Range Interpretation [...] 697) EGFR (BEAKER) (test 62 mL/min/1.73 ESTIMA ASAD GFR IS code = 1092) sq m [...] (test code = 413) FUNGUS CULTURE + [id number] 20:59:00 Test Item Value Reference Range Interpretation Comments CULTURE (BEAKER) (test No fungus isolated in code = 1095) 28 days FUNGUS SMEAR (BEAKER) No fungi seen (test code = 1406) COMPREHENSIVE METABOLIC [id number] 14:33:00 Test Item Value Reference Range Interpretation [...] 347) EGFR (BEAKER) (test 66 mL/min/1.73 ESTIMA ASAD GFR IS code = 1092) sq m NOT ACCURATE CREATININE CLEARANCE IN PREDICTING GLOMERULAR FILTRATION RATE . ESTIMATED GFR I S NOT APPLICABLE FOR DIALYSIS PATIEN TS. [id number] 13:57:00 Test Item Value Reference Range Interpretation Comments PROTIME (BEAKER) (test code = 13.6 seconds 11.7-14.7 759) INR (BEAKER) (test code = 370) 1.0 <=5.9 PARTIAL THROMBOPLASTIN TIME 26.9 seconds 22.5-36.0 (BEAKER) (test code = 760) RECOMMENDED COUMADIN/WARFARIN INR THERAPY RANGESSTANDARD DOSE: 2.0 - 3.0 Includes: PROPHYLAXIS for venous thrombosis, systemic embolization; TREATMENT for venous thrombosis and/or pulmonary embolus.HIGH RISK: Target INR is 2.5-3.5 for patients with mechanical heart valves.RAD, CHEST, 2 [id number] 13:47:00 Reason for exam:->diaphragmatic paralsisShould this be performed at the bedside?->NoFINAL REPORT Chest x-ray Clinical History: diaphragmatic paralsis Comparison: February 20, 2015 Views: 2 Chest x-ray:The cardiac and mediastinal silhouettes are not adequately visualized. There is no evidence of a pneumothorax. There is no evidence of a pleural effusion. There is evidence of overt cardiac failure. The visible regional skeleton is intact. There is no evidence of afocal parenchymal opacity. Impression: There remains elevation of the left diaphragm consistent withthe patient's clinical diagnosis. As compared to the prior study there is patchy density is visualized in the right mid and lower lung zone without evidence of a focal parenchymal opacity nodule. Thesefindings may represent developing pneumonitis and follow-up studies recommended if clinically appropriate. Signed: Beverly Chouort Verified Date/Time: 12/22/2017 13:47:10 Reading Location: [address] Radiology Reading Room CBC W/PLT COUNT & AUTO [id number] 13:44:00 Test Item Value Reference Range Interpretation [...] PERCENT (BEAKER) (test code = 2801) VIRUS [id number] 09:14:00 Test Item Value Reference Range Interpretation Comments CULTURE (BEAKER) (test code No virus isolated = 1095) LEGIONELLA [id number] 08:42:00 Test Item Value Reference Range Interpretation Comments CULTURE (BEAKER) No Legionella species (test code = 1095) isolated BRONCHIAL CULTURE + GRAM [id number] 06:04:00 Test Item Value Reference Range Interpretation Comments CULTURE (BEAKER) (test code No growth = 1095) GRAM STAIN RESULT (BEAKER) 1+ WBCs (test code = 1123) GRAM STAIN RESULT (BEAKER) No organisms seen (test code = 04328) FLOW CYTOMETRY [id number] 12:18:00 Test Item Value Reference Range Interpretation Comments FLOW CYTOMETRY RESULT See Separate Report POINTER (BEAKER) (test code = 2758) FLOW CYTOMETRY AP CASE # [id number] (BEAKER) (test code = 2759) [id number] 10:33:00Medical Cytology Report Case: [id number] Authorizing Provider: Luis Carlos Padilla MD Collected: 11/23/2017 1152 Ordering Location: [facility] Received: 11/23/2017 1426 Pathologist: Aline Morales Specimen: Lung, Left Upper Lobe, in CRR routine cyto LEFT UPPER LOBE LUNG BAL (CYTOSPINS): - NEGATIVE FOR MALIGNANCY MULTINUCLEATED GIANT CELLS AND INFLAMMATORY CELLS PRESENT Signing Pathologist Direct Phone Line: [phone] signed by Aline Morales on 11/24/2017 at 10:33 [id number], shortness of breath, abnormal CT lung screeningLEFT UPPER LOBE LUNG BAL20 mls in cytorich red; 4 cytospinsCollected: [id number]: [id number] [facility], Department of [facility]ology, [address] [place] [id number], [facility], [facility] of [facility], [address] [place] [id number], MUXS [id number] 10:21:00Flow Cytometry Report Case: [id number] Authorizing Provider: Luis Carlos Padilla MD Collected: 11/23/2017 1201 Ordering Location: [facility] Received: 11/23/2017 1513 Pathologist: Asaf Cevallos MD Specimen: Other LEFT UPPER LOBE LUNG BRONCHOALVEOLAR LAVAGE FLOW CYTOMETRY: T CELLS SHOW ACD4:CD8 RATIO OF 2.6 80011Midchzzdd of breathLEFT UPPER LOBE LUNG BALCD3, CD4, CD8, KX55Gsgkntxgp: 87%Bright CD45+ lymphocytes comprise 55.4% of total cells, and include 97.5% ofCD3+ T cells. T cells are comprised of 71.6% CD4+CD8- and 27.8% CD4- CD8+subsets.These tests were developed and their performance characteristics determined by [facility]. They have not been cleared or approved by the U.S. Food and Drug Administration. The FDA has determined that such clearance or approval is not necessary. It should not be regarded as investigational or for research. This laboratory is certified under the Clinical Laboratory Improvement Amendments of 1988 ("CLIA") as qualified to perform high-complexity clinical testing.BODY FLUID CELL COUNT WITH [id number] 17:58:00 Test Item Value Reference Range Interpretation [...] perfo rmed on (BEAKER) (test code degenera asad WBCs = 1656) LYMPHS FLUID 32 % (BEAKER) (test code = 488) MONO/MACROPHAGE 36 % FLUID (BEAKER) (test code = 489) EOSINOPHILS FLUID 0 % (BEAKER) (test code = 491) BASO FLUID (BEAKER) 0 % (test code = 492) CONTAINER BODY EDTA Tube FLUID (BEAKER) (test code = 2873) CYTOLOGY [id number] 16:01:00 Test Item Value Reference Range Interpretation Comments CYTOLOGY RESULT POINTER See Separate Report (BEAKER) (test code = 2629)
--- NOTE | 2021-11-19 21:25 | EDPHYS ---
Physician Documentation [facility] Name: Emma Cordova Age: 76 yrs Sex: Female : 1945 Arrival Date: 11/19/2021 Time: 17:59 Bed 13 Private MD: ED Physician Matheus Powers HPI: 11/19 21:16 This 76 yrs old Female presents to ER via EMS with complaints of l side umm tingling. 21:16 The patient's problem is reported as a facial droop, on left. Onset: The umm symptoms/episode began/occurred yesterday. Duration: This was a single incident. Context: the episode(s) was witnessed, by no one. The symptoms are alleviated by nothing. The symptoms are aggravated by nothing. Associated signs and symptoms: The patient has no apparent associated signs or symptoms. Severity of symptoms: At their worst the symptoms were moderate in the emergency department the symptoms have resolved YESTERDAY , LASTED 2.5 HOURS. Patient's baseline: Neuro: alert and fully oriented. The patient has not experienced similar symptoms in the past. Historical: - Allergies: 18:39 Atarax; ap3 18:39 Benadryl; ap3 - PMHx: 18:39 Alcoholism; Anxiety; Depression; Hypercholesterolemia; ap3 - PSHx: 18:39 ; lung/diaphram surgery; wisdom teeth removal; ap3 - Immunization history:: Client reports receiving the 2nd dose of the Covid vaccine. - Social history:: Smoking status: Patient denies any tobacco usage or history of. Patient uses alcohol, alcoholic who quit 20 years ago. - Family history:: not pertinent. ROS: 21:16 Constitutional: Negative for fever, chills, and weight loss, Eyes: Negative for injury, umm pain, redness, and discharge, ENT: Negative for injury, pain, and discharge, Neck: Negative for injury, pain, and swelling, Cardiovascular: Negative for chest pain, palpitations, and edema, Respiratory: Negative for shortness of breath, cough, wheezing, and pleuritic chest pain, Abdomen/GI: Negative for abdominal pain, nausea, vomiting, diarrhea, and constipation, Back: Negative for injury and pain, : Negative for injury, bleeding, discharge, and swelling, MS/Extremity: Negative for injury and deformity, Skin: Negative for injury, rash, and discoloration, Psych: Negative for depression, anxiety, suicide ideation, homicidal ideation, and hallucinations, Allergy/Immunology: Negative for hives, rash, and allergies, Endocrine: Negative for neck swelling, polydipsia, polyuria, polyphagia, and marked weight changes, Hematologic/Lymphatic: Negative for swollen nodes, abnormal bleeding, and unusual bruising. 21:16 Neuro: Negative for altered mental status, dizziness, gait disturbance, headache, hearing loss, numbness, seizure activity, speech changes, weakness. Exam: 21:16 Radiologist reports: NEGATIVE umm 21:16 Constitutional: This is a well developed, well nourished patient who is awake, alert, and in no acute distress. Head/Face: Normocephalic, atraumatic. Eyes: Pupils equal round and reactive to light, extra-ocular motions intact. Lids and lashes normal. Conjunctiva and sclera are non-icteric and not injected. Cornea within normal limits. Periorbital areas with no swelling, redness, or edema. ENT: Nares patent. No nasal discharge, no septal abnormalities noted. Tympanic membranes are normal and external auditory canals are clear. Oropharynx with no redness, swelling, or masses, exudates, or evidence of obstruction, uvula midline. Mucous membranes moist. Neck: Trachea midline, no thyromegaly or masses palpated, and no cervical lymphadenopathy. Supple, full range of motion without nuchal rigidity, or vertebral point tenderness. No Meningismus. Chest/axilla: Normal chest wall appearance and motion. Nontender with no deformity. No lesions are appreciated. Cardiovascular: Regular rate and rhythm with a normal S1 and S2. No gallops, murmurs, or rubs. Normal PMI, no JVD. No pulse deficits. Respiratory: Lungs have equal breath sounds bilaterally, clear to auscultation and percussion. No rales, rhonchi or wheezes noted. No increased work of breathing, no retractions or nasal flaring. Abdomen/GI: Soft, non-tender, with normal bowel sounds. No distension or tympany. No guarding or rebound. No evidence of tenderness throughout. Back: No spinal tenderness. No costovertebral tenderness. Full range of motion. Female : Normal external genitalia. Skin: Warm, dry with normal turgor. Normal color with no rashes, no lesions, and no evidence of cellulitis. Neuro: Awake and alert, GCS 15, oriented to person, place, time, and situation. Cranial nerves II-XII grossly intact. Motor strength 5/5 in all extremities. Sensory grossly intact. Cerebellar exam normal. Normal gait. Psych: Awake, alert, with orientation to person, place and time. Behavior, mood, and affect are within normal limits. 21:16 Musculoskeletal/extremity: Sensation intact. Compartment Syndrome exam of affected extremity: is normal. DVT Exam: No signs of deep vein thrombosis. no pain, no swelling, no tenderness, negative Homans' sign noted on exam, no appreciated bluish discoloration, no erythema, no increased warmth. 22:09 ECG was reviewed by the Attending Physician. [facility] Vital Signs: 18:38 BP 128 / 99; Pulse 77; Resp 17; Temp 97.9; Pulse Ox 100% ; Weight 81.19 kg; Height 5 ap3 ft. 2 in. (157.48 cm); 20:18 BP 132 / 73; Pulse 71; Resp 16 S; Temp 98(A); Pulse Ox 100% on R/A; Pain 0/10; kd3 21:49 BP 109 / 55; Pulse 71; Resp 15 S; Pulse Ox 98% on R/A; Pain 0/10; aa9 23:25 BP 112 / 60; Pulse 62; Resp 16 S; Pulse Ox 100% on R/A; aa9 18:38 Body Mass Index 32.74 (81.19 kg, 157.48 cm) ap3 NIH Stroke Scale Scores: 22:22 NIHSS Score: 0 umm MDM: 20:36 Patient medically screened. umm 21:20 Differential diagnosis: CVA, TIA. Data reviewed: vital signs, nurses notes, lab test [facility] result(s), EKG, radiologic studies, CT scan, plain films. Data interpreted: monitor tech: rate is 71 beats/min. Test interpretation: by ED physician or midlevel provider: ECG, plain radiologic studies. Counseling: I had a detailed discussion with the patient and/or guardian regarding: the historical points, exam findings, and any diagnostic results supporting the discharge/admit diagnosis, lab results, radiology results, the need for further work-up and treatment in the hospital. 11/19 21:16 Order name: Basic Metabolic Panel; Complete Time: 22:40 umm 11/19 21:16 Order name: CBC with Diff; Complete Time: 22:27 [facility] 11/19 21:16 Order name: LFT's; Complete Time: 22:40 [facility] 11/19 21:16 Order name: Magnesium; Complete Time: 22:40 [facility] 11/19 21:16 Order name: NT PRO-BNP; Complete Time: 22:40 [facility] 11/19 21:16 Order name: PT-INR; Complete Time: 22:30 [facility] 11/19 21:16 Order name: Troponin HS; Complete Time: 22:40 [facility] 11/19 21:16 Order name: XRAY Chest (1 view); Complete Time: 22:27 [facility] 11/19 21:16 Order name: CT Head Brain wo Cont [facility] 11/19 21:16 Order name: CT Head Angio [facility] 11/19 21:16 Order name: SARS RAPID; Complete Time: 22:30 [facility] 11/19 21:32 Order name: Urine Dipstick-Ancillary; Complete Time: 22:27 [facility] 11/19 22:27 Order name: Lipid Profile; Complete Time: 22:40 [facility] 11/19 21:16 Order name: EKG; Complete Time: 21:17 [facility] 11/19 21:16 Order name: Cardiac monitoring; Complete Time: 21:47 [facility] 11/19 21:16 Order name: EKG - Nurse/Tech; Complete Time: 21:47 [facility] 11/19 21:16 Order name: IV Saline Lock; Complete Time: 21:47 [facility] 11/19 21:16 Order name: Labs collected and sent; Complete Time: 21:47 [facility] 11/19 21:16 Order name: O2 Per Protocol; Complete Time: 21:47 [facility] 11/19 21:16 Order name: O2 Sat Monitoring; Complete Time: 21:47 [facility] 11/19 21:16 Order name: CT Neck Angio [facility] 11/19 21:16 Order name: Urine Dipstick-Ancillary (obtain specimen); Complete Time: 21:47 [facility] 11/19 21:21 Order name: Head Brain Wo Cont [facility] 11/19 21:23 Order name: Head angio [facility] 11/19 21:25 Order name: Neck Angio EDMS EC:09 Rate is 67 beats/min. Rhythm is regular. QRS [place] is Normal. PA interval is normal. QRS umm interval is normal. QT interval is normal. No Q waves. T waves are Normal. Clinical impression: Normal ECG and No evidence of ischemia. Interpreted by me. Reviewed by me. Administered Medications: 21:45 Drug: Thiamine 100 mg Route: IV; Rate: bolus; Site: right antecubital; kd3 21:46 Follow up: Response: No adverse reaction; IV Status: Completed infusion; IV Intake: 1ml aa9 21:46 Drug: foLIC Acid 1 mg Route: IVPB; Site: right antecubital; aa9 23:31 Follow up: Response: No adverse reaction; IV Status: Completed infusion aa9 21:46 Drug: NS 0.9% 1000 ml Route: IV; Rate: 1 bolus; Site: right antecubital; aa9 23:31 Follow up: IV Status: Completed infusion; IV Intake: 1000ml aa9 :46 Drug: Aspirin Chewable Tablet 324 mg Route: PO; aa9 23:30 Follow up: Response: No adverse reaction aa9 Disposition Summary: 11/19/21 21:24 Hospitalization Ordered Hospitalization Status: Observation umm Provider: Mandi Cota cha Location: Telemetry/MedSur (observation) umm Condition: Stable umm Problem: new umm Symptoms: have improved umm Bed/Room Type: Standard umm Room Assignment: 232(11/19/21 23:21) eb1 Diagnosis - Transient cerebral ischemic attack, unspecified - RESOLVED , 24 HOURS AGO umm - Weakness umm - Paresthesia of skin umm Forms: - Medication Reconciliation Form umm - SBAR form umm NIH Stroke Scale - NIH Stroke Score Date: 11/19/2021 Time: 22:22 Total Score = 0 1a. Level of Consciousness (LOC) - 0(Alert) 1b. Level of Consciousness (LOC) (Month \T\ Age) - 0(Both) 1c. LOC Commands (Open \T\ Closes Eyes/Scan Coordinator) - 0(Both) 2. Best Gaze (Lateral Gaze Paresis) - 0(Normal) 3. Visual Field Loss - 0(No visual loss) 4. Facial Palsy - 0(Normal) 5a. Left Arm: Motor (10-second hold) - 0(No drift) 5b. Right Arm: Motor (10-second hold) - 0(No drift) 6a. Left Leg: Motor (5-second hold - always test supine) - 0(No drift) 6b. Right Leg: Motor (5-second hold - always test supine) - 0(No drift) 7. Limb Ataxia (finger/nose \T\ heel/zee - test with eyes open) - 0(Absent) 8. Sensory Loss (pinprick arms/legs/face) - 0(Normal) 9. Best Language: Aphasia (description/naming/reading) - 0(No aphasia) 10. Dysarthria (speech clarity - read or repeat words) - 0(Normal) 11. Extinction and Inattention (visual/tactile/auditory/spatial/personal) - 0(No abnormality) Initials: [facility] Signatures: Dispatcher [employer] EDMS Matheus Powers MD MD cha Prokisch, Amanda RN RN ap3 Kari Nava RN RN eb1 Shana Celaya RN RN arianna3 Milagro Rudolph PA PA sb3 Jeanie Amor, RN RN aa9 Corrections: (The following items were deleted from the chart) 22:27 21:30 LIPID PROFILE+C.LAB.BRZ ordered. EDMS EDMS 23:21 21:24 umm eb1
--- NOTE | 2021-11-19 21:25 | ER ---
Nurse's Notes [facility] Name: Emma Cordova Age: 76 yrs Sex: Female : 1945 Arrival Date: 11/19/2021 Time: 17:59 Bed 13 Private MD: Diagnosis: Transient cerebral ischemic attack, unspecified-RESOLVED , 24 HOURS AGO;Weakness;Paresthesia of skin Presentation: 11/19 18:38 Chief complaint: Patient states: she has been being treated for shingles for approx 1 ap3 week. patient states she started feeling a tingle in her cheek yesterday. patient states she stopped taking the shingles medication because she didn't like the way it was making her feel. Coronavirus screen: At this time, the client does not indicate any symptoms associated with coronavirus-19. Ebola Screen: No symptoms or risks identified at this time. Initial Sepsis Screen: Does the patient meet any 2 criteria? No. Patient's initial sepsis screen is negative. Does the patient have a suspected source of infection? No. Patient's initial sepsis screen is negative. Risk Assessment: Do you want to hurt yourself or someone else? Patient reports no desire to harm self or others. Onset of symptoms was November 18, 2021. 18:38 Method Of Arrival: EMS: [facility] ap3 18:38 Acuity: HERNÁN 3 ap3 Triage Assessment: 18:40 General: Appears in no apparent distress. Behavior is calm, cooperative. Pain: Denies ap3 pain. Neuro: No deficits noted. Level of Consciousness is awake, alert, obeys commands, Oriented to person, place, time, situation, Speech is normal, Facial symmetry appears normal. Cardiovascular: Patient's skin is warm and dry. Respiratory: Airway is patent Respiratory effort is even, unlabored. Historical: - Allergies: 18:39 Atarax; ap3 18:39 Benadryl; ap3 - PMHx: 18:39 Alcoholism; Anxiety; Depression; Hypercholesterolemia; ap3 - PSHx: 18:39 ; lung/diaphram surgery; wisdom teeth removal; ap3 - Immunization history:: Client reports receiving the 2nd dose of the Covid vaccine. - Social history:: Smoking status: Patient denies any tobacco usage or history of. Patient uses alcohol, alcoholic who quit 20 years ago. - Family history:: not pertinent. Screenin:41 Abuse screen: Denies threats or abuse. Nutritional screening: No deficits noted. ap3 Tuberculosis screening: No symptoms or risk factors identified. 23:30 Fall Risk None identified. aa9 Assessment: 20:15 General: Appears comfortable, Behavior is cooperative, anxious. General: Left side was kd3 tingly yesterday, pt states "Maybe a little tingly now. Last night my left foot and hand felt tingly too. I started taking acyclovir for shingles recently.". Pain: Denies pain. Neuro: No deficits noted. Level of Consciousness is awake, alert, obeys commands, Clinic Supervisor are equal bilaterally Moves all extremities. Speech is normal, Facial symmetry appears normal. 21:47 Reassessment: Patient aware of care plan, IV site placed, tolerated well, awaiting lab aa9 results. . 23:25 Reassessment: pt breathing regularly, unlabored, supine in bed, warm blanket given, aa9 denies pain. 11/20 00:00 Reassessment: patient transported to room 232 via wheelchair. patient stable with aa9 unlabored breathing and denies pain. Vital Signs: 11/19 18:38 BP 128 / 99; Pulse 77; Resp 17; Temp 97.9; Pulse Ox 100% ; Weight 81.19 kg; Height 5 ap3 ft. 2 in. (157.48 cm); 20:18 BP 132 / 73; Pulse 71; Resp 16 S; Temp 98(A); Pulse Ox 100% on R/A; Pain 0/10; kd3 21:49 BP 109 / 55; Pulse 71; Resp 15 S; Pulse Ox 98% on R/A; Pain 0/10; aa9 23:25 BP 112 / 60; Pulse 62; Resp 16 S; Pulse Ox 100% on R/A; aa9 18:38 Body Mass Index 32.74 (81.19 kg, 157.48 cm) ap3 NIH Stroke Scale Scores: 22:22 NIHSS Score: 0 umm ED Course: 17:59 Patient arrived in ED. as 18:39 Triage completed. ap3 18:41 Arm band placed on right wrist. ap3 20:18 Patient has correct armband on for positive identification. Call light in reach. Side kd3 rails up X2. 20:36 Matheus Powers MD is Attending Physician. umm 21:22 Mandi Cota MD is Hospitalizing Provider. umm 21:36 Inserted saline lock: 20 gauge in right antecubital area, using aseptic technique. aa9 Blood collected. 21:47 Jeanie Amor, RN is Primary Nurse. aa9 21:54 XRAY Chest (1 view) In Process Unspecified. EDMS 23:02 Head Brain Wo Cont In Process Unspecified. EDMS 23:03 Head angio In Process Unspecified. EDMS 23:04 Neck Angio In Process Unspecified. EDMS 23:26 Door closed. Lights dimmed. Warm blanket given. aa9 23:27 No provider procedures requiring assistance completed. Patient admitted, IV remains in aa9 place. Administered Medications: 21:45 Drug: Thiamine 100 mg Route: IV; Rate: bolus; Site: right antecubital; kd3 21:46 Follow up: Response: No adverse reaction; IV Status: Completed infusion; IV Intake: 1ml aa9 21:46 Drug: foLIC Acid 1 mg Route: IVPB; Site: right antecubital; aa9 23:31 Follow up: Response: No adverse reaction; IV Status: Completed infusion aa9 21:46 Drug: NS 0.9% 1000 ml Route: IV; Rate: 1 bolus; Site: right antecubital; aa9 23:31 Follow up: IV Status: Completed infusion; IV Intake: 1000ml aa9 21:46 Drug: Aspirin Chewable Tablet 324 mg Route: PO; aa9 23:30 Follow up: Response: No adverse reaction aa9 Medication: 23:30 VIS not applicable for this client. aa9 Intake: 21:46 IV: 1ml; Total: 1ml. aa9 23:31 IV: 1000ml; Total: 1001ml. aa9 Outcome: 21:24 Decision to Hospitalize by Provider. umm 23:29 Admitted to Med/surg aa9 23:29 Condition: stable 23:29 Instructed on the need for admit, Demonstrated understanding of instructions, follow-up care. 11/20 00:01 Patient left the ED. aa9 NIH Stroke Scale - NIH Stroke Score Date: 11/19/2021 Time: 22:22 Total Score = 0 1a. Level of Consciousness (LOC) - 0(Alert) 1b. Level of Consciousness (LOC) (Month \\T\\ Age) - 0(Both) 1c. LOC Commands (Open \\T\\ Closes Eyes/Patternmaker Helper) - 0(Both) 2. Best Gaze (Lateral Gaze Paresis) - 0(Normal) 3. Visual Field Loss - 0(No visual loss) 4. Facial Palsy - 0(Normal) 5a. Left Arm: Motor (10-second hold) - 0(No drift) 5b. Right Arm: Motor (10-second hold) - 0(No drift) 6a. Left Leg: Motor (5-second hold - always test supine) - 0(No drift) 6b. Right Leg: Motor (5-second hold - always test supine) - 0(No drift) 7. Limb Ataxia (finger/nose \\T\\ heel/zee - test with eyes open) - 0(Absent) 8. Sensory Loss (pinprick arms/legs/face) - 0(Normal) 9. Best Language: Aphasia (description/naming/reading) - 0(No aphasia) 10. Dysarthria (speech clarity - read or repeat words) - 0(Normal) 11. Extinction and Inattention (visual/tactile/auditory/spatial/personal) - 0(No abnormality) Initials: umm Signatures: Dispatcher [employer] EDMS Matheus Powers MD MD cha Martinez, Amelia as Prokisch, Amanda RN RN ap3 Shana Celaya RN RN kd3 Jeanie Amor, RN RN aa9 Corrections: (The following items were deleted from the chart) 11/19 20:33 20:15 General: Left side was tingly yesterday, pt states "Maybe a little tingly kd3 now. Last night my left foot and hand felt tingly too. ". kd3
[2021-11-19 21:32] LABS: Urine Blood Negative (Negative); Urine Glucose Negative (Negative); Urine Protein Negative (Negative); Urine pH 6.5 (5.0-7.0)
[2021-11-19] MEDS ORDERED: NA CHLORIDE 0.9% 1,000 ML ONE (21:33)
[2021-11-19] MEDS ORDERED: ASPIRIN 81 MG CHEWABLE TABLET ONE (21:33)
[2021-11-19] MEDS ORDERED: FOLIC ACID 5 MG/ML VIAL ONE (21:34)
[2021-11-19] MEDS ORDERED: THIAMINE 200 MG/2 ML INJ ONE (21:39)
--- NOTE | 2021-11-19 21:57 | RAD REPORT ---
EXAM DESCRIPTION: RAD - Chest Single View - 11/19/2021 9:52 pm CLINICAL HISTORY: COUGH COMPARISON: Chest Single View dated 09/07/2021; Chest Pa And Lat (2 Views) dated 07/27/2018; Thorax Wo Con dated 07/27/2018 FINDINGS: Lines: None. Lungs: No evidence of edema or pneumonia. Similar elevated left hemidiaphragm. Pleural: No significant pleural effusions or pneumothorax. Cardiac: The heart size is within normal limits. Bones: No acute fractures. Other: IMPRESSION: No acute cardiopulmonary disease. Similar elevated left hemidiaphragm.
[2021-11-19 22:22] LABS: Absolute Lymphocytes (CBC) 3.1 K/uL (0.7-4.9); Hematocrit 38.8 % (36.0-45.0); Lymphocytes % 33.9 % (15.3-44.8); MCV 88.8 fL (80-100); MPV 8.9 fL (7.6-11.3); RBC Red Blood Cell Count 4.37 M/uL (3.86-4.86)
[2021-11-19 22:24] LABS: Albumin 3.7 g/dL (3.4-5.0); Bilirubin Direct 0.1 mg/dL (0-0.2); Bilirubin Total 0.5 mg/dL (0.2-1.0); Magnesium 2.2 mg/dL (1.8-2.4); Potassium 3.1 mmol/L (3.5-5.1); Protein, Total 7.3 g/dL (6.4-8.2); Troponin High Sensitivity 9.2 pg/mL (<58.9)
[2021-11-19 22:27] LABS: SARS-CoV-2 Antigen Rapid Res Negative (Negative)
[2021-11-19 22:29] LABS: Protime INR 1.03
--- NOTE | 2021-11-19 23:09 | RAD REPORT ---
EXAM DESCRIPTION: CT - Head Brain Wo Cont - 11/19/2021 11:01 pm CLINICAL HISTORY: Transient ischemic attack (TIA) COMPARISON: No comparisonsNo comparisons TECHNIQUE: All CT scans are performed using dose optimization technique as appropriate and may inclu de automated exposure control or mA/KV adjustment according to patient size. FINDINGS: No intracranial hemorrhage, hydrocephalus or extra-axial fluid collection.No areas of brai n edema or evidence of midline shift. Cerebral atrophy. The paranasal sinuses and mastoids are clear. The calvarium is intact. IMPRESSION: No acute intracranial abnormality. Age advanced cerebral atrophy
--- NOTE | 2021-11-19 23:10 | RAD REPORT ---
EXAM DESCRIPTION: CT - Head angio - 11/19/2021 11:01 pm CLINICAL HISTORY: Transient ischemic attack (TIA) COMPARISON: Head Brain Wo Cont dated 11/19/2021 TECHNIQUE: CT angiography of the head was performed with MIPs. All CT scans are performed using dose optimization technique as appropriate and may include automated exposure control or mA/KV adjustment according to patient size. FINDINGS: Anterior circulation: No aneurysm or large vessel occlusion. No hemodynamically significant stenosis. No arteriovenous malf ormation identified. Probable 4 mm infundibulum at the left PCOM origin. Posterior circulation: No aneurysm or large vessel occlusion. No hemodynamically significant stenosis. No arteriovenous malf ormation identified. IMPRESSION: No significant flow abnormality is detected.
--- NOTE | 2021-11-19 23:11 | RAD REPORT ---
EXAM DESCRIPTION: CT - Neck Angio - 11/19/2021 11:03 pm CLINICAL HISTORY: Transient ischemic attack (TIA) COMPARISON: Soft Tissue Neck W/Contr dated 02/08/2020 TECHNIQUE: CT angiography of the neck vessels was performed with MIPs. All CT scans are performed using dose optimization technique as appropriate and may include automated exposure control or mA/KV adjustment according to patient size. FINDINGS: A left aortic arch is identified with normal three vessel configuration of the great vesse ls. No significant flow abnormality is seen of the common carotid bilaterally. No significant stenosis is identified involving the cervical segments of both internal carotid arteri es. Normal flow is seen within both vertebral arteries. IMPRESSION: No significant flow abnormality of the neck vessels is identified.
[2021-11-20] MEDS ORDERED: ACETAMINOPHEN 500 MG TAB PO PRN (00:12)
[2021-11-20] MEDS ORDERED: ONDANSETRON 4 MG/2 ML VIAL IV PRN (00:12)
[2021-11-20 01:07] VITALS: BMI 23.8
--- NOTE | 2021-11-20 01:54 | P.HP ---
Certification for Inpatient Patient admitted to: Observation With expected LOS: <2 Midnights Patient will require the following post-hospital care: None Practitioner: I am a practitioner with admitting privileges, knowledge of patient current condition, hospital course, and medical plan of care. Services: Services provided to patient in accordance with Admission requirements found in Title 42 Section 412.3 of the Code of Federal Regulations Patient History Date of Service: 11/20/21 Reason for admission: CVA R/O History of Present Illness: Patient is a 76-year-old female with depression, anxiety, and hyperlipidemia who presented to the ED with complaints of left facial tingling. She states that she has been taking acyclovir for shingles x 1 week. She states that yesterday she was experiencing left-sided facial droop and left-sided weakness for about 2.5 hours. She reports that those symptoms have since resolved. Her labs today are significant for sodium 132 and potassium 3.1. Lipid panel within normal limits. CT brain and CT head/neck angio negative. She was given thiamine, folic acid, 324 mg aspirin, and 1 L fluid. ED provider wishes to admit patient for CVA rule out. Allergies diphenhydramine [From Benadryl] Allergy (Intermediate, Verified 07/28/18 02:13) Hives hydroxyzine [From Atarax] Allergy (Intermediate, Verified 07/28/18 02:13) Hives Home medications list reviewed: Yes Home Medications: Codeine/APAP [Tylenol #3*] 1 tab PO BIDP PRN 07/28/18 ALPRAZolam [Xanax*] 1 mg PO BEDTIME 09/08/21 Mineral Oil, Light/Mineral Oil [Soothe Xp Eye Drops] 2 gtt OP Q4H PRN 09/08/21 Cyclosporine [Restasis] 2 drop EACH EYE BID 11/20/21 Potassium Chloride [K-Dur] 20 meq PO DAILY 11/20/21 Trazodone [Desyrel*] 25 mg PO BEDTIME 11/20/21 Venlafaxine HCl *Xr* [Effexor XR] 75 mg PO DAILY 11/20/21 - Past Medical/Surgical History Has patient received pneumonia vaccine in the past: Yes Diabetic: No -: Shingles x2 -: Depression -: Anxiety -: Hyperlipidemia -: Diaphragm sx - 2018 -: x2 Psychosocial/ Personal History: Patient lives at home with her - Family History Mother -: Stroke - Social History Smoking Status: Never smoker Alcohol use: No CD- Drugs: No Caffeine use: Yes Place of Residence: Home Review of Systems Neurological: Other (Left sided facial weakness) Physical Examination - Vital Signs Temperature: 98 F Blood Pressure: 121/50 Pulse: 63 Respirations: 18 Pulse Ox (%): 97 - Physical Exam General: Alert, In no apparent distress HEENT: Atraumatic, PERRLA, EOMI, Sclerae nonicteric Neck: Supple, 2+ carotid pulse no bruit, No LAD, Without JVD or thyroid abnormality Respiratory: Clear to auscultation bilaterally, Normal air movement Cardiovascular: Regular rate/rhythm, Normal S1 S2 Gastrointestinal: Normal bowel sounds, No tenderness Musculoskeletal: No tenderness Integumentary: No rashes Neurological: Normal gait, Normal speech, Normal strength at 5/5 x4 extr, Normal tone, Sensation intact, Normal affect - Studies Laboratory Data (last 24 hrs) 11/19/21 21:36: PT 11.3, INR 1.03 11/19/21 21:36: WBC 9.10, Hgb 13.1, Hct 38.8, Plt Count 311 11/19/21 21:36: Sodium 132 L, Potassium 3.1 L, BUN 4 L, Creatinine 0.70, Glucose 105, Magnesium 2.2, Total Bilirubin 0.5, AST 30, ALT 47, Alkaline Phosphatase 114, Triglycerides 105, Cholesterol 196, HDL Cholesterol 68 H, Cholesterol/HDL Ratio 2.88 11/19/21 21:30: Triglycerides Cancelled, Cholesterol Cancelled, HDL Cholesterol Cancelled, Cholesterol/HDL Ratio Cancelled Assessment and Plan - Problems (Diagnosis) (1) TIA (transient ischemic attack) Current Visit: Yes Status: Acute (2) Shingles Current Visit: Yes Status: Acute Qualifiers: Herpes zoster complications: without complications Qualified Code(s): B02.9 - Zoster without complications (3) Hypokalemia Current Visit: Yes Status: Acute (4) HTN (hypertension) Current Visit: Yes Status: Chronic Qualifiers: Hypertension type: primary hypertension Qualified Code(s): I10 - Essential (primary) hypertension - Plan -MRI stroke protocol, echo, and carotid US ordered for morning -Neurology consulted -Monitor on telemetry -Physical therapy stroke evaluation -Daily folic acid and aspirin -IV fluids with supplemental potassium -Monitor and replete electrolytes per protocol -Reconcile and continue home medications -Lovenox for VTE ppx -Full code Discharge Plan: Home Plan to discharge in: 24 Hours - Advance Directives Does patient have a Living Will: No Does patient have a Durable POA for Healthcare: No - Code Status/Comfort Care Code Status Assessed: Yes (Full) Critical Care: No Time Spent Managing Pts Care (In Minutes): 50
[2021-11-20 03:49] VITALS: O2SAT 100
[2021-11-20 05:52] LABS: Hematocrit 33.2 % (36.0-45.0); Lymphocytes % 27.9 % (15.3-44.8); MCV 88.2 fL (80-100); MPV 8.5 fL (7.6-11.3); RBC Red Blood Cell Count 3.77 M/uL (3.86-4.86)
[2021-11-20 06:13] LABS: Magnesium 2.3 mg/dL (1.8-2.4); Phosphorus 3.4 mg/dL (2.5-4.9); Potassium 3.8 mmol/L (3.5-5.1); Thyroid Stimulating Hormone 1.28 uIU/mL (0.360-3.740)
--- NOTE | 2021-11-20 07:27 | RAD REPORT ---
EXAM DESCRIPTION: US - CP - 11/20/2021 5:21 am CLINICAL HISTORY: CVA COMPARISON: Neck Angio dated 11/19/2021 TECHNIQUE: Real-time sonographic evaluation of bilateral carotid and vertebral systems was performed . Costa scale and Doppler interrogation were performed with waveform tracing bilaterally. FINDINGS: Normal high resistance waveforms are noted in both external carotid arteries. The common c arotid arteries and internal carotid arteries show normal low resistance waveforms. No significant plaque formation is seen. Peak systolic and end diastolic velocity values and the ICA/ CCA ratios are in the non-hemodynamically significant range. Antegrade flow seen in both vertebral arteries. Velocity values and ratios were recorded and are retained in the patient's imaging records. IMPRESSION: No significant atherosclerotic changes noted. No evidence of a hemodynamically significant stenosis.
[2021-11-20] MEDS ORDERED: POTASSIUM CL SA 10 MEQ TAB PO ONE (08:05)
[2021-11-20] MEDS ORDERED: ENOXAPARIN 40 MG/0.4 ML SQ SCH (09:00)
[2021-11-20] MEDS ORDERED: FOLIC ACID 1 MG TABLET PO SCH (09:00)
[2021-11-20] MEDS ORDERED: ASPIRIN EC 81 MG TAB PO SCH (09:00)
[2021-11-20 13:30] VITALS: BP 128/69; TEMP 97.4
--- NOTE | 2021-11-20 15:10 | EKG ---
Test Date: 2021-11-19 Test Time: 21:41:52 Odd Job Laborer: ASIA MEASUREMENT RESULTS: Intervals: Rate: 67 MS: 182 QRSD: 92 QT: 426 QTc: 450 Haiku: P: 63 MS: 182 QRS: 35 T: 70 INTERPRETIVE STATEMENTS: Normal sinus rhythm Normal ECG Compared to ECG 10/25/2021 15:27:56 Ventricular premature complex(es) no longer present Electronically Signed On 11-20-21 15:09:20 CDT by Houston Yip
--- NOTE | 2021-11-20 16:34 | RAD REPORT ---
EXAM DESCRIPTION: MRI - Brain W/Wo Cont - 11/20/2021 4:12 pm CLINICAL HISTORY: Numbness COMPARISON: head CT November 19, 2021 TECHNIQUE: Axial, sagittal, and coronal magnetic images of the brain were obtained. 18 cc MultiHance administered intravenously FINDINGS: Patchy signal within the brainstem nonspecific but may be related to chronic ischemic kelly ges. Mild signal within deep and subcortical white matter probably ischemic changes secondary to small ves cynthia disease. The ventricles are normal in caliber. Diffusion-weighted/ ADC mapping sequences do not demonstrate evidence of an acute infarction. No abnormal enhancement within the brain is seen. An extra-axial fluid collection is not noted. Fluid within the sinuses/mastoids is not seen IMPRESSION: No acute intracranial abnormality displayed
--- NOTE | 2021-11-20 17:01 | P.DS ---
Admission Date: 11/19/21 Discharge Date: 11/20/21 Disposition: ROUTINE DISCHARGE Discharge Condition: FAIR Reason for Admission: CVA R/O - Problems (1) TIA (transient ischemic attack) Status: Acute (2) HTN (hypertension) Status: Chronic Qualifiers: Hypertension type: primary hypertension Qualified Code(s): I10 - Essential (primary) hypertension Brief History of Present Illness: Patient is a 76-year-old female with depression, anxiety, and hyperlipidemia who presented to the ED with complaints of left facial tingling. She states that she has been taking acyclovir for shingles x 1 week. She stated she experienced left-sided facial droop and left-sided weakness for about 2.5 hours. Her symptoms resolved. Her labs were significant for sodium 132 and potassium 3.1. Lipid panel within normal limits. CT brain and CT head/neck angio negative. She was given thiamine, folic acid, 324 mg aspirin, and 1 L fluid. Patient hospitalized for CVA work-up. Hospital Course: Patient placed in observation on the medical floor and started on aspirin. CT head, CTA head and neck, carotid Doppler were all unremarkable with no significant vessel disease. MRI of the brain did not show any acute CVA. Patient noted to have mild left facial droop, no problem with speech or swallow and no problem with ambulation. Patient was exposed to her who had herpes zoster. There is the possibility of Franco's palsy. I offered patient Franco's palsy treatment with steroid into continue her antiviral. Patient refused treatment. Acute CVA ruled out. Patient is deemed clinically stable for discharge. She is prescribed baby aspirin. Vital Signs/Physical Exam: Temp Pulse Resp BP Pulse Ox 97.4 F 74 18 128/69 96 11/20/21 12:00 11/20/21 12:00 11/20/21 12:00 11/20/21 12:00 11/20/21 12:00 General: Alert, In no apparent distress, Oriented x3 HEENT: Normocephalic, Mucous membr. moist/pink Neck: JVD not distended Respiratory: Clear to auscultation bilaterally, Normal air movement Cardiovascular: No edema, Regular rate/rhythm, Normal S1 S2 Gastrointestinal: Soft and benign, Non-distended, No tenderness Musculoskeletal: No swelling Integumentary: No rashes Neurological: Normal strength at 5/5 x4 extr Laboratory Data at Discharge: WBC 7.10 K/uL (4.3-10.9) D 11/20/21 05:28 Hgb 11.5 g/dL (12.0-15.0) L 11/20/21 05:28 Hct 33.2 % (36.0-45.0) L 11/20/21 05:28 Plt Count 257 K/uL (152-406) 11/20/21 05:28 PT 11.3 SECONDS (9.5-12.5) 11/19/21 21:36 INR 1.03 11/19/21 21:36 Sodium 139 mmol/L (136-145) 11/20/21 05:28 Potassium 3.8 mmol/L (3.5-5.1) 11/20/21 05:28 BUN 4 mg/dL (7-18) L 11/20/21 05:28 Creatinine 0.62 mg/dL (0.55-1.3) 11/20/21 05:28 Glucose 103 mg/dL (74-106) 11/20/21 05:28 Phosphorus 3.4 mg/dL (2.5-4.9) 11/20/21 05:28 Magnesium 2.3 mg/dL (1.8-2.4) 11/20/21 05:28 Total Bilirubin 0.5 mg/dL (0.2-1.0) 11/19/21 21:36 AST 30 U/L (15-37) 11/19/21 21:36 ALT 47 U/L (12-78) 11/19/21 21:36 Alkaline Phosphatase 114 U/L (45-117) 11/19/21 21:36 Triglycerides 105 mg/dL (<150) 11/19/21 21:36 Cholesterol 196 mg/dL (<200) 11/19/21 21:36 HDL Cholesterol 68 mg/dL (40-60) H 11/19/21 21:36 Cholesterol/HDL Ratio 2.88 11/19/21 21:36 Home Medications: Codeine/APAP [Tylenol #3*] 1 tab PO BIDP PRN 07/28/18 ALPRAZolam [Xanax*] 1 mg PO BEDTIME 09/08/21 Mineral Oil, Light/Mineral Oil [Soothe Xp Eye Drops] 2 gtt OP Q4H PRN 09/08/21 Aspirin [Aspirin EC 81 MG] 81 mg PO DAILY #30 11/20/21 Cyclosporine [Restasis] 2 drop EACH EYE BID 11/20/21 Potassium Chloride [K-Dur] 20 meq PO DAILY 11/20/21 Trazodone [Desyrel*] 25 mg PO BEDTIME 11/20/21 Venlafaxine HCl *Xr* [Effexor XR] 75 mg PO DAILY 11/20/21 New Medications: Aspirin [Aspirin EC 81 MG] 81 mg PO DAILY #30 Diet: AHA Activity: Ad kristine Followup: NONE,NONE [Primary Care Provider] - Vaughn Page DO [ACTIVE - CAN ADMIT] - 1-2 Weeks
--- NOTE | 2021-11-21 10:42 | ECHO ---
HEIGHT: 5 ft 2 in WEIGHT: 179 lb 0 oz DATE OF STUDY: 11/20/[address]: Milagro Rudolph 2-DIMENSIONAL: YES M.MODE: YES DOPPLER: YES COLOR FLOW: YES TDS: NO PORTABLE: YES DEFINITY: NO BUBBLE STUDY: NO DIAGNOSIS: RULE OUT CEREBRAL VASCULAR ACCIDENT CARDIAC HISTORY: CATHERIZATION: NO SURGERY: NO PROSTHETIC VALVE: NO PACEMAKER: NO MEASUREMENTS (cm) DIASTOLIC (NORMALS) SYSTOLIC (NORMALS) IVSd 1.0 (0.6-1.2) LA Diam 2.3 (1.9-4.0) LVEF 65% LVIDd 3.6 (3.5-5.7) LVIDs 2.4 (2.0-3.5) %FS 35% LVPWd 1.0 (0.6-1.2) Ao Diam 2.7 (2.0-3.7) 2 DIMENSIONAL ASSESSMENT: RIGHT ATRIUM: NORMAL LEFT ATRIUM: NORMAL RIGHT VENTRICLE: NORMAL LEFT VENTRICLE: NORMAL TRICUSPID VALVE: NORMAL MITRAL VALVE: PULMONIC VALVE: NORMAL AORTIC VALVE: PERICARDIAL EFFUSION: NONE AORTIC ROOT: NORMAL LEFT VENTRICULAR WALL MOTION: NORMAL DOPPLER/COLOR FLOW: SEE BELOW COMMENTS: NORMAL LEFT VENTRICULAR EJECTION FRACTION 55-60%. NORMAL WALL MOTION. MILD AORTIC AND MITRAL REGURGITATION. TECHNOLOGIST: Gopi SANTOYO
== END 2021-11-20 17:07 | disposition home or self-care (01) ==
LOC: ER 17:53 → ERHOLD 23:16 → 2ND 23:44
PROVIDERS: ADMIT Internal Medicine; ATTEND Internal Medicine
DX: G45.9 Transient cerebral ischemic attack, unspecified (principal); I10 Essential (primary) hypertension; B02.9 Zoster without complications; E87.6 Hypokalemia; F32.A Depression, unspecified; F41.9 Anxiety disorder, unspecified; E78.5 Hyperlipidemia, unspecified; E78.00 Pure hypercholesterolemia, unspecified; Z53.29 Procedure and treatment not carried out because of patient's decision for other reasons; Z79.82 Long term (current) use of aspirin; Z79.899 Other long term (current) drug therapy; Z88.8 Allergy status to other drugs, medicaments and biological substances; Z20.822 Contact with and (suspected) exposure to COVID-19; Z82.3 Family history of stroke
CPT/HCPCS: 96365; 93005; 93306; 85025 ×2; 80048 ×2; 36415; 83735 ×2; 84100; 85610; 80061; 80076; 84443; 81003; 84484; 83880; 70450; 70496; 70498; 71045; 93880; 70553; 97116; 97161; 97530; 96375; 99285; 96366; 87811; Q9967; A9577; J3411; J7030; G0378 ×2